=== PATIENT | male | born 1990 | race Two or more races ===

== ENCOUNTER 2024-05-08 04:24 | Emergency (ER) | payer MEDICAID, SELFPAY ==
[2024-05-08 04:26] VITALS: BP 132/84; PULSE 107; RESP 19; TEMP 36.6; O2SAT 100
--- NOTE | 2024-05-08 05:24 | ED.NAVMDI ---
HPI - Nausea/Vomiting/Diarrhea General Chief complaint: Nausea/Vomiting/Diarrhea Stated complaint: gout outbreak in R elbow and L toe, nausea, vomitt Time Seen by Provider: 05/08/24 04:42 History of Present Illness HPI Narrative: This is a 34-year-old male with a past medical history significant for gout and alcohol abuse. Patient presents to the ED with multiple complaints including nauseousness, vomiting, diarrhea as well as a gout flare in his right elbow and right great toe. Patient states he is presently at [facility] for rehabilitation and then on day 5 of his detox from alcohol. He states that whenever he goes through detox around a 4 in 5 he gets severely nauseous and vomits with diarrhea. He states that these symptoms are very common for him as he has gone through rehab several times and failed. He states he feels slightly anxious but has never trialed phenobarbital or Librium for alcohol withdrawal symptoms. He states his most chief concern is that he is having a severe gout flare in his right elbow and right hallux. There is significant warmth, erythema and swelling of both of these joints. This was nontraumatic in nature. He states he usually gets significant relief with indomethacin or steroids. Does not take anything aside from allopurinol for gout presently. Denies any chest pain, shortness a breath, back pain, weakness, fatigue, infectious symptoms. Related Data Allergies Allergy/AdvReac Type Severity Reaction Status Date / Time No Known Allergies Allergy Verified 05/08/24 04:25 Review of Systems Review of Systems: As reviewed above in HPI Exam Narrative: GENERAL: Retching and vomiting throat examination, appears anxious with some tremors in his extremities. HEAD: [Normocephalic, atraumatic.] EYES: [PERRLA and EOMI.] ENT: Nares clear, no rhinorrhea or epistaxis. Mucous membranes moist. NECK: Supple. CHEST: [Clear to auscultation. No respiratory distress.] HEART: [Regular rate and rhythm]. No murmur heard. [Normal peripheral pulses.] ABDOMEN: [Soft, nondistended], [nontender], [No rigidity or guarding] EXTREMITIES: Swollen right elbow and right hallux with warmth and erythema but no significant infectious symptoms or cellulitis. Full range of motion of the extremities. Tender to palpation. No deformities. SKIN: Warm and flushed NEURO: [No focal deficits]. Alert and oriented [x3.] PSYCH: [Normal mood and affect.] Course Vital Signs Vital signs: Vital Signs Temperature 36.6 C 05/08/24 04:26 Pulse Rate 107 H 05/08/24 04:26 Respiratory Rate 19 05/08/24 04:26 Blood Pressure 132/84 05/08/24 04:26 Pulse Oximetry 100 05/08/24 04:26 Oxygen Delivery Room Air 05/08/24 04:26 Temperature 36.6 C 05/08/24 04:26 Pulse Rate 107 H 05/08/24 04:26 Respiratory Rate 19 05/08/24 04:26 Blood Pressure 132/84 05/08/24 04:26 Pulse Oximetry 100 05/08/24 04:26 Oxygen Delivery Room Air 05/08/24 04:26 MDM - Nausea/Vomiting/Diarrhea MDM Narrative Medical decision making narrative: 34-year-old male with history of gout alcohol abuse presently going through alcohol withdrawal in addition to a gout flare. He is on day 5 of detoxification at [facility] for alcohol intoxication rehabilitation. Has not had a drink in 5 days. Has had similar symptoms in the past according to himself or on day 4 or 5 he get significant withdrawal type symptoms. Has never been given phenobarbital or trial on Librium for withdrawal symptoms according to himself. Patient states that his chief concern of gout is the most painful and likely worsening his nausea and vomiting from withdrawals. Thinks these are 2 separate issues and I agree based on my clinical assessment and physical exam. Differential diagnosis for his polyarthropathy also includes but less likely to be infectious or septic arthritis, traumatic injury, or cellulitis. We will treat his alcohol withdrawal symptoms with a 5 milligram/kilogram
[2024-05-08] MEDS: SODIUM CHLORIDE 0.9% IV 1,000 ML 999 ML IV CONT (05:54)
[2024-05-08] MEDS: methylPREDNISolone SOD SUCC 40 MG VIAL IV PUSH (05:57)
[2024-05-08] MEDS: PHENobarbitaL sodium (*CRX) 130 MG/ML VIAL 260 MG IV PUSH (05:57)
[2024-05-08] MEDS: KETOROLAC 15 MG/ML VIAL (*BKC) IV PUSH (05:57)
[2024-05-08 06:08] LABS: Basophils Percent Auto 0.1 % (0.2-1.2); Eosinophils Absolute Auto 0.1 K/mm3 (0-0.3); Eosinophils Percent Auto 1.2 % (0-4.4); Hematocrit 36.1 % (42.0-52.0); Hemoglobin 12.2 g/dL (14.0-18.0); Immature Granulocyte Absolute 0.05 K/mm3 (0.00-0.031); Immature Granulocyte Percent A 0.5 % (0-0.5); Lymphocytes Absolute Auto 0.98 K/mm3 (0.9-3.2); Lymphocytes Percent Auto 9.1 % (18.3-44.2); Mean Corpuscular HGB Conc 33.8 g/dl (32-36); Mean Corpuscular Hemoglobin 33.2 pg (26-34); Mean Corpuscular Volume 98.4 fl (80-100); Mean Platelet Volume 12.3 fl (7.4-10.4); Monocytes Absolute Auto 1.2 K/mm3 (0.1-0.6); Monocytes Percent Auto 11.2 % (2.6-8.5); Neutrophils Absolute Auto 8.4 K/mm3 (1.3-6.7); Neutrophils Percent Auto 77.9 % (45.5-73.1); Platelet Count Result 140 k/mm3 (150-375); Red Blood Count 3.67 M/mm3 (4.6-6.20); Red Cell Distribution Width 14.8 % (11.5-14.5); White Blood Count 10.7 K/mm3 (4.5-10.0)
[2024-05-08 06:11] LABS: Alanine Aminotransferase 19 U/L (6-50); Albumin Level 4.3 g/dL (3.5-5.1); Alkaline Phosphatase 98 U/L (38-126); Anion Gap 11 mmol/L (4-12); Aspartate Amino Transferase 26 U/L (17-59); Bilirubin,Total 0.7 mg/dL (0.2-1.3); Blood Urea Nitrogen 13 mg/dL (9-20); Calcium 8.8 mg/dL (8.4-10.2); Carbon Dioxide 28 mmol/L (22-30); Chloride 97 mmol/L (98-107); Estimated Glomerular Filt Rate > 60; Glucose 130 mg/dL (65-110); Lipase 43 U/L (23-300); Potassium 2.9 mmol/L (3.4-5.0); Sodium 136 mmol/L (137-145)
[2024-05-08 06:25] VITALS: BP 142/94; PULSE 61; RESP 15; O2SAT 98
[2024-05-08] MEDS: POTASSIUM CHLORIDE 20 MEQ ER TABLET 60 MEQ PO (07:10)
== END 2024-05-08 07:23 | disposition home or self-care (01) ==
PROVIDERS: Emergency Provider Student in an Organized Health Care Education/Training Program
DX: F10.139 Alcohol abuse with withdrawal, unspecified (principal); M10.9 Gout, unspecified; E87.6 Hypokalemia
CPT/HCPCS: 36415; 80053; 83690; 85025; 96361; 96374; 96375; 99284; A9270; J1885; J2560; J2919; J7030

== ENCOUNTER 2024-10-14 13:10 | Emergency (ER) | payer OTHER, SELFPAY ==
--- OUTSIDE RECORDS SUMMARY | 2024-10-14 13:14 | XMS_ITS | Clinical Summary ---
Author Organization [facility] Address [address] [place] [address] Care Team Providers Care Rock Cutter Name Role Phone Provider, None Primary Care Provider Unavailabl e Medications * This document contains information received from the source organization and may not represent a complete record from that organization. QUEtiapine Fumarate 400 MG Tablet Take 800 mg by mouth nightly. Active sertraline (ZOLOFT) 100 MG Tablet Take 200 mg by mouth daily. Active allopurinol (ZYLOPRIM) 100 MG Tablet Take 100 mg by mouth daily. Active chlordiazePOXIDE (LIBRIUM) 10 MG CapsuleIndication s:Alcohol withdrawal syndrome without complication (HCC) Take 1 Capsule by mouth every 8 hours as needed for Withdrawal. 10 Capsule 4 Active folic acid (FOLVITE) 1 MG Tablet Take 1 Tablet by mouth daily for 90 days. 90 Tablet 4 11/05/19 25 Active thiamine (VITAMIN B1) 100 MG Tablet Take 1 Tablet by mouth daily for 90 days. 90 Tablet 4 11/05/19 25 Active Active Problems Problem Noted Date Diagnosed Date Bipolar disorder 06/15/2024 PTSD (post-traumatic stress disorder) 06/15/2024 Gout 06/15/2024 Resolved Problems Problem Noted Date Diagnosed Date Resolved Date Alcohol withdrawal 06/15/2024 4 Encounters * This document contains information received from the source organization and may not represent a complete record from that organization. Date Type Department Care Team Description 08/04/2024 [facility] [address] [place] [phone] Matthieu Montano APRN, CNP Appointment 08/04/2024 Telephone [facility] [address] [place] [phone] Matthieu Montano APRN, CNP 08/03/2024 Travel from Last 3 Months Immunizations Immunization Administration Dates Next Due Covid-19, Mrna, Lnp-s, Pf, 30 Mcg/0.3 Ml Dose (P elijah) 07/14/2021 Social History Tobacco Use Types Packs/Day Years Used Date Smoking Tobacco: Never Assessed [facility] Utilities Answer Date Recorded In the past 12 months has [employer] electric, gas, oil, or water company threatened to shut off services in your home? No 08/03/2024 Social Connection and Isolat ion Panel [NHANES] Answer Date Recorded In a typical week, how many times do you talk on the phone with family, friends, or neighbors? Three times a week 08/03/2024 How often do you get togethe r with friends or relatives? Three times a week 08/03/2024 How often do you attend chur ch or buddhism services? More than 4 times per year 08/03/2024 Do you belong to any clubs o r organizations such as roman catholic groups, unions, fraternal or athletic groups, or school groups? Yes 08/03/2024 How often do you attend meet ings of the clubs or organizations you belong to? More than 4 times per year 08/03/2024 Are you , , di vorced, , never , or living with a partner? 08/03/2024 AUDIT-C Answer Date Recorded Q1: How often do you have a drink containing alc ohol? 2-4 times a month 08/03/2024 Q2: How many drinks containi ng alcohol do you have on a typical day when you are drinking? 1 or 2 08/03/2024 Q3: How often do you have si x or more drinks on one occasion? Never 08/03/2024 Overall Financial Resource Strain (CARDIA) Answe r Date Recorded How hard is it for you to pa y for the very basics like food, housing, medical care, and heating? Not hard at all 08/03/2024 [facility] Occupat ional Health - Occupational Stress Questionnaire Answer Date Recorded Do you feel stress - tense, restless, nervous, or anxious, or unable to sleep at night because your mind is troubled all the time - these days? Only a little 08/03/2024 Exercise Vital Sign Answer Date Recorde d On average, how many days pe r week do you engage in moderate to strenuous exercise (like a brisk walk)? 2 days 08/03/2024 On average, how many minutes do you engage in exercise at this level? 20 min 08/03/2024 Hunger Vital Sign Answer Date Recorded Within the past 12 months, y ou worried that your food would run out before you got the money to buy more. Never true 08/03/20 24 Within the past 12 months, t he food you bought just didn't last and you didn't have money to get more. Never true 08/03/2024 PRAPARE - Transportation Answer Date Re corded In the past 12 months, has l ack of transportation kept you from medical appointments or from getting medications? No 01/2024 In the past 12 months, has l ack of transportation kept you from meetings, work, or from getting things needed for daily living? No 08/03/2024 Housing Stability Vital Sign Answer Tej e Recorded In the last 12 months, was t here a time when you were not able to pay the mortgage or rent on time? No 08/03/2024 In the past 12 months, how m any times have you moved where you were living? 0 08/03/2024 At any time in the past 12 m [facility], were you homeless or living in a group home (including now)? No 08/03/2024 Sex and Gender Information Value Date Recorded Sex Assigned at Male 08/08/2024 12:53 PM FORK LIFT MECHANIC Legal Sex Male 2:53 PM FORK LIFT MECHANIC Gender Identity Male 08/08/2024 12:53 PM FORK LIFT MECHANIC Sexual Orientation Not on file Last Filed Vital Signs Vital Sign Reading Time Taken Comments Blood Pressure 105/62 08/06/2024 5:40 AM FORK LIFT MECHANIC Pulse 55 08/06/2024 5:40 AM FORK LIFT MECHANIC Temperature 36.8 C (98.2 F) 08/06/2024 5:40 AM FORK LIFT MECHANIC Respiratory Rate 16 08/06/2024 5:40 AM FORK LIFT MECHANIC Oxygen Saturation 99% 08/06/2024 5:40 AM FORK LIFT MECHANIC Inhaled Oxygen Concentration - - Weight 63.5 kg (140 lb) 08/03/2024 2:15 PM FORK LIFT MECHANIC Height 175.3 cm (5' 9 ) 08/03/2024 2:15 PM FORK LIFT MECHANIC Body Mass Index 20.67 08/03/2024 2:15 PM FORK LIFT MECHANIC Plan of Treatment Health Maintenance Due Date Last Done Comments Hepatitis C Virus (HCV) Screening 1988 TdaP Immunization 1988 Influenza Immunization (#1) 2024 SARS-COV-2 Immunization ( season) 2024 07/14/2021, 01/02/2021, 12/12/2020 Respiratory Syncytial Virus (RSV) Immunization (Adult) (1 - 1-dose 75+ series) 2063 DTaP/Tdap/Td Immunization Discontinued 1992, 05/04/1990, 02/21/1989, Additional history exists Hepatitis B Immunization Completed 996, 09/01/1995, 07/28/1995 Meningococcal Immunization (ACWY) Aged Out No longer eligible based on patient's age to complete this topic Pneumococcal Immunization Combined Aged Out No longer eligible based on patient's age to complete this topic Rotavirus Immunization Aged Out No lo nger eligible based on patient's age to complete this topic Procedures Procedure Name Priority Date/Time Associated Diagnosis Comments CBC WITH AUTO DIFFERENTIAL Routine 08/03/2024 2:25 PM FORK LIFT MECHANIC AMYLASE Routine 08/03/2024 2:25 PM FORK LIFT MECHANIC MAGNESIUM (MG) Routine 08/03/2024 2:25 PM FORK LIFT MECHANIC PHOSPHORUS (PO4) Routine 08/03/2024 2:25 PM FORK LIFT MECHANIC LIPASE Routine 08/03/2024 2:25 PM FORK LIFT MECHANIC ETHYL ALCOHOL (ETHANOL) Routine 08/03/2024 2:25 PM FORK LIFT MECHANIC PROTIME (PT) (PROTHROMBIN TIME) Routine 08/03/2024 2:25 PM FORK LIFT MECHANIC CMP (COMPREHENSIVE METABOLIC PANEL) Routine 08/03/2024 2:25 PM FORK LIFT MECHANIC COMPLETE BLOOD COUNT (CBC) WITH DIFF Routine 08/03/2024 2:25 PM FORK LIFT MECHANIC URINALYSIS (UA) MACROSCOPIC Routine 08/03/2024 2:03 PM FORK LIFT MECHANIC URINE DRUG SCREEN Routine 08/03/2024 2:0 3 PM FORK LIFT MECHANIC from Last 3 Months Results * (ABNORMAL) CBC with Auto Differential (08/03/2024 2:25 PM FORK LIFT MECHANIC) WBC 6.70 4.00 - 12.00 10(3)/mcL 08/03/2024 2:36 PM FORK LIFT MECHANIC [facility] RBC 5.12 4.40 - 5.80 10(6)/mcL 08/03/2024 2:36 PM FORK LIFT MECHANIC [facility] HEMOGLOBIN (HGB) 15.9 13.0 - 16.5 g/dL 08/03/2024 2:36 PM FORK LIFT MECHANIC [facility] HEMATOCRIT (HCT) 47.0 38.0 - 50.0 % 08/03/2024 2:36 PM FORK LIFT MECHANIC [facility] MCV 91.8 82.0 - 96.0 fL 08/03/2024 2:36 PM FORK LIFT MECHANIC [facility] MCH 31.1 26.0 - 32.0 pg 08/03/2024 2:36 PM FORK LIFT MECHANIC [facility] MCHC 33.8 31.0 - 36.0 g/dL 08/03/2024 2:36 PM FORK LIFT MECHANIC [facility] PLATELET COUNT 242 140 - 440 10(3)/mcL 08/03/2024 2:36 PM FORK LIFT MECHANIC [facility] RDW 13.2 11.8 - 15.5 % 08/03/2024 2:36 PM FORK LIFT MECHANIC [facility] MPV 11.4 8.0 - 12.6 fL 08/03/2024 2:36 PM FORK LIFT MECHANIC [facility] NEUTROPHILS 57.5 40.0 - 68.0 % 08/03/2024 2:36 PM FORK LIFT MECHANIC [facility] LYMPHOCYTES 31.8 19.0 - 49.0 % 08/03/2024 2:36 PM FORK LIFT MECHANIC [facility] MONOCYTES 4.8 3.0 - 13.0 % 08/03/2024 2:36 PM FORK LIFT MECHANIC [facility] EOSINOPHILS 4.6 0.0 - 8.0 % 08/03/2024 2:36 PM FORK LIFT MECHANIC [facility] BASOPHILS 1.3(H) 0.0 - 1.0 % 08/03/2024 2:36 PM FORK LIFT MECHANIC [facility] ABSOLUTE NEUTROPHILS 3.85 1.40 - 5.30 10(3)/[facility] 08/03/2024 2:36 PM FORK LIFT MECHANIC [facility] ABSOLUTE LYMPHOCYTES 2.13 0.90 - 3.30 10(3)/[facility] 08/03/2024 2:36 PM FORK LIFT MECHANIC [facility] ABSOLUTE MONOCYTES 0.32 0.10 - 0.90 10(3)/[facility] 08/03/2024 2:36 PM FORK LIFT MECHANIC [facility] ABSOLUTE EOSINOPHIL 0.31 0.00 - 0.50 10(3)/[facility] 08/03/2024 2:36 PM FORK LIFT MECHANIC [facility] ABSOLUTE BASOPHILS 0.09 0.00 - 0.10 10(3)/[facility] 08/03/2024 2:36 PM FORK LIFT MECHANIC [facility] NRBC PER 100 WBC 0 08/03/20 2:36 PM FORK LIFT MECHANIC [facility] Blood Venipuncture / Unknown 08/03/2024 2:25 PM FORK LIFT MECHANIC 08/03/2024 2:33 PM FORK LIFT MECHANIC us Sherrell Bai MD HEMATOLOGY ORDERABLES Final R esult [facility] [address] [place] [address] * PROTIME (PT) (PROTHROMBIN TIME) (08/03/2024 2:25 PM FORK LIFT MECHANIC) PROTIME-PATIENT 13.0 11.6 - 14.8 sec 08/03/2024 3:11 PM FORK LIFT MECHANIC [facility] INR 1.0 0.9 - 1.2 08/03/2024 3:11 PM FORK LIFT MECHANIC [facility] Comment: Therapeutic Ranges INR = 2.0-3.0: Venous thromb, atrial fib, pul embolism, tissue heart valve, ami. INR = 2.5-3.5: Mechanical heart valve Critical value for INR is >/= 4.5 Blood Venipuncture / Unknown 08/03/2024 2:25 PM FORK LIFT MECHANIC 08/03/2024 2:33 PM FORK LIFT MECHANIC Sherrell Bai MD HEMATOLOGY ORDERABLES Final R esult Performing Organization Address City/[facility]/ZIP Co de Phone Number [facility] [address] [place] [address] * (ABNORMAL) PHOSPHORUS (PO4) (08/03/2024 2:25 PM FORK LIFT MECHANIC) Pathologist [facility] PHOSPHORUS 2.2(L) 2.5 - 4.5 mg/dL 08/03/2024 2:54 PM FORK LIFT MECHANIC [facility] Blood Venipuncture / Unknown 08/03/2024 2:25 PM FORK LIFT MECHANIC 08/03/2024 2:33 PM FORK LIFT MECHANIC Sherrell Bai MD CHEMISTRY ORDERABLES Final Re sult [facility] [address] [place] [address] * MAGNESIUM (MG) (08/03/2024 2:25 PM FORK LIFT MECHANIC) Pathologist [facility] MAGNESIUM 2.3 1.6 - 2.6 mg/dL 08/03/2024 2:54 PM FORK LIFT MECHANIC [facility] Blood Venipuncture / Unknown 08/03/2024 2:25 PM FORK LIFT MECHANIC 08/03/2024 2:33 PM FORK LIFT MECHANIC Sherrell Bai MD CHEMISTRY ORDERABLES Final Re sult Performing Organization Address City/[facility]/ZIP Co de Phone Number [facility] [address] [place] [address] * Lipase (08/03/2024 2:25 PM FORK LIFT MECHANIC) LIPASE 14 8 - 78 U/L 08/03/2024 2:54 PM FORK LIFT MECHANIC [facility] Blood Venipuncture / Unknown 08/03/2024 2:25 PM FORK LIFT MECHANIC 08/03/2024 2:33 PM FORK LIFT MECHANIC Sherrell Bai MD CHEMISTRY ORDERABLES Final Re sult Performing Organization Address [facility] Co de Phone Number [facility] [address] [place] [address] * (ABNORMAL) Ethyl Alcohol (Ethanol) (08/03/2024 2:25 PM FORK LIFT MECHANIC) ETHANOL 184(H) <10 mg/dL 08/03/2024 2:54 PM FORK LIFT MECHANIC [facility] Blood Venipuncture / Unknown 08/03/2024 2:25 PM FORK LIFT MECHANIC 08/03/2024 2:33 PM FORK LIFT MECHANIC Sherrell Bai MD CHEMISTRY ORDERABLES Final Re sult Performing Organization Address [facility] Co de Phone Number [facility] [address] [place] [address] * (ABNORMAL) CMP (Comprehensive Metabolic Panel) (08/03/2024 2:25 PM FORK LIFT MECHANIC) SODIUM 142 136 - 145 mmol/L 08/03/2024 2:54 PM FORK LIFT MECHANIC [facility] POTASSIUM 3.5 3.5 - 5.1 mmol/L 08/03/2024 2:54 PM [facility] CHLORIDE 107 98 - 107 mmol/L 08/03/2024 2:54 PM [facility] CO2, VENOUS 22 22 - 30 mmol/L 08/03/2024 2:54 PM [facility] ANION GAP 16.5 <18.0 mmol/L 08/03/2024 2:54 PM [facility] GLUCOSE 87 70 - 99 mg/dL 08/03/2024 2:54 PM [facility] BUN 10 9 - 21 mg/dL 08/03/2024 2:54 PM [facility] CREATININE, BLOOD 0.96 0.70 - 1.30 mg/dL 08/03/2024 2:54 PM [facility] BUN/CREATININE RATIO 10(L) 12 - 20 ratio 08/03/2024 2:54 PM [facility] TOTAL PROTEIN 8.4(H) 6.3 - 8.2 g/dL 08/03/2024 2:54 PM [facility] ALBUMIN 4.9 3.5 - 5.0 g/dL 08/03/2024 2:54 PM [facility] A/G RATIO 1.4 1.0 - 2.2 08/03/2024 2:54 PM [facility] CALCIUM 9.4 8.7 - 10.5 mg/dL 08/03/2024 2:54 PM [facility] T BILI 0.5 0.2 - 1.2 mg/dL 08/03/2024 2:54 PM [facility] SGOT (AST) 22 5 - 34 U/L 08/03/2024 2:54 PM [facility] SGPT (ALT) 19 0 - 55 U/L 08/03/2024 2:54 PM [facility] ALKALINE PHOSPHATASE 84 40 - 150 U/L 08/03/2024 2:54 PM [facility] GFR, ESTIMATED >60 >=60 08/03/2024 2:54 PM FORK LIFT MECHANIC [facility] Comment: Creatinine Clearance is the preferred criteria for selecting drug dose adjustments in renally impaired patients. The GFR is provided as additional pertinent clinical information. GFR is reported in mL/min/1.73 sq m. Calculation based on the Chronic Kidney Disease Epidemiology Collaboration (CKD- EPI) equation refit without adjustment for race. GFR, EST. >60 >=60 024 2:54 PM FORK LIFT MECHANIC [facility] GFR, EST. NONAFRICAN >60 >=60 08/03/2024 2:54 PM FORK LIFT MECHANIC [facility] Blood Venipuncture / Unknown 08/03/2024 2:25 PM FORK LIFT MECHANIC 08/03/2024 2:33 PM FORK LIFT MECHANIC Sherrell Bai MD CHEMISTRY ORDERABLES Final Re sult Performing Organization Address [facility]/ZIP Co de Phone Number [facility] [address] [place] [address] * Amylase (08/03/2024 2:25 PM FORK LIFT MECHANIC) AMYLASE 71 25 - 125 U/L 08/03/2024 2:54 PM FORK LIFT MECHANIC [facility] Blood Venipuncture / Unknown 08/03/2024 2:25 PM FORK LIFT MECHANIC 08/03/2024 2:33 PM FORK LIFT MECHANIC Sherrell Bai MD CHEMISTRY ORDERABLES Final Re sult Performing Organization Address [facility] Co de Phone Number [facility] [address] [place] [address] * Urinalysis (Ua) Macroscopic (08/03/2024 2:03 PM FORK LIFT MECHANIC) SPECIFIC GRAVITY 1.005 1.003 - 1.030 08/03/2024 2:24 PM FORK LIFT MECHANIC [facility] URINE PH 6.0 5.0 - 9.0 08/03/2024 2:24 PM FORK LIFT MECHANIC [facility] WBC ESTERASE Negative Negative 08/03/2024 2:24 PM FORK LIFT MECHANIC [facility] NITRITE Negative Negative 08/03/2024 2:24 PM FORK LIFT MECHANIC [facility] PROTEIN, RANDOM URINE Negative Negative 08/03/2024 2:24 PM FORK LIFT MECHANIC [facility] URINE GLUCOSE, QUAL Negative Negative 08/03/2024 2:24 PM FORK LIFT MECHANIC [facility] URINE KETONES Negative Negative 08/03/2024 2:24 PM FORK LIFT MECHANIC [facility] UROBILINOGEN Normal Normal mg/dL 08/03/2024 2:24 PM FORK LIFT MECHANIC [facility] URINE BLOOD Negative Negative gretel/ul 08/03/2024 2:24 PM FORK LIFT MECHANIC [facility] URINALYSIS COLOR Yellow 08/03/20 2:24 PM FORK LIFT MECHANIC [facility] URINALYSIS CLARITY Clear 08/03/2024 2:24 PM FORK LIFT MECHANIC [facility] Urine Non-Phlebotomy Collection / Unknown 08/03/2024 2:03 PM FORK LIFT MECHANIC 08/03/2024 2:09 PM FORK LIFT MECHANIC Sherrell Bai MD URINE ORDERABLES Final Result [facility] [address] [place] [address] * (ABNORMAL) Urine Drug Screen (08/03/2024 2:03 PM FORK LIFT MECHANIC) UR AMPHETAMINE NON DETECTED NON DETECTED 08/03/2024 3:14 PM FORK LIFT MECHANIC [facility] Comment: FOR MEDICAL USE ONLY. CUTOFF CONCENTRATION FOR DETECTED RESULT: AMPHETAMINE: 500 NG/ML UR BENZODIAZEPINES NON DETECTED NON DETECTED 08/03/2024 3:14 PM FORK LIFT MECHANIC [facility] Comment: FOR MEDICAL USE ONLY. CUTOFF CONCENTRATION FOR DETECTED RESULT: BENZODIAZAPINE: 200 NG/ML UR COCAINE METABOLITE NON DETECTED NON DETECTED 08/03/2024 3:14 PM FORK LIFT MECHANIC [facility] Comment: FOR MEDICAL USE ONLY. CUTOFF CONCENTRATION FOR DETECTED RESULT: COCAINE: 150 NG/ML UR OPIATES NON DETECTED NON DETECTED 08/03/2024 3:14 PM FORK LIFT MECHANIC [facility] Comment: FOR MEDICAL USE ONLY. CUTOFF CONCENTRATION FOR DETECTED RESULT: OPIATES: 300 NG/ML UR PHENCYCLIDINE NON DETECTED NON DETECTED 08/03/2024 3:14 PM FORK LIFT MECHANIC [facility] Comment: FOR MEDICAL USE ONLY. CUTOFF CONCENTRATION FOR DETECTED RESULT: PCP: 25 NG/ML UR CANNABINOID DETECTED(A) NON DETECTED 08/03/2024 3:14 PM FORK LIFT MECHANIC [facility] Comment: FOR MEDICAL USE ONLY. CUTOFF CONCENTRATION FOR DETECTED RESULT: THC (MARIJUANA): 50 NG/ML UR BARBITURATE NON DETECTED NON DETECTED 08/03/2024 3:14 PM FORK LIFT MECHANIC [facility] Comment: FOR MEDICAL USE ONLY. CUTOFF CONCENTRATION FOR DETECTED RESULT: BARBITUATES: 200 NG/ML UR FENTANYL NON DETECTED NON DETECTED 08/03/2024 3:14 PM FORK LIFT MECHANIC [facility] Comment: FOR MEDICAL USE ONLY. CUTOFF CONCENTRATION FOR DETECTED RESULT: FENTANYL: 1.0 NG/ML Urine Non-Phlebotomy Collection / Unknown 08/03/2024 2:03 PM FORK LIFT MECHANIC 08/03/2024 2:09 PM FORK LIFT MECHANIC Sherrell Bai MD URINE ORDERABLES Final Result [facility] [address] [place] [address] from Last 3 Months Insurance MEDICAID [employer] [facility] Advance Directives * Full Code (Latest Code Status on File) Date Activated Date Inactivated Comments 08/03/2024 5:02 PM CPR-Full Treat ment: FULL ARREST: Attempt Resuscitation/CPR wit intubation and mechanical ventilation. PRE-ARREST: Use entire range of life support measures to stabilize the patient. * Full Code Date Activated Date Inactivated Comments 06/15/2024 9:26 PM 08/03/2024 5:02 PM CPR-Full Tr eatment: FULL ARREST: Attempt Resuscitation/CPR wit intubation and mechanical ventilation. PRE-ARREST: Use entire range of life support measures to stabilize the patient. Care Teams Rock Cutter Relationship Specialty Start Date End Date Provider, None [place] PCP - General 06/16/24
--- OUTSIDE RECORDS SUMMARY | 2024-10-14 13:14 | XMS_ITS | Referral Summary ---
Author Organization [facility] Address [address] [place] [address] Care Team Providers Care Needle Loom Setter Name Role Phone Candelario Diamond MD Primary Care Provider [phone] Encounters Date Type Department Care Team Description 10/08/2024 10:41 PM SURFBOARD DESIGNER - 10/11/2024 9:40 AM SURFBOARD DESIGNER Hospital Encounter [address] [address] Cheng Hodgson MD Quaizar, Huzaifa, MD Sajjad, Sohaib, MD Alcohol withdrawal syndrome without complication (HCC) (Primary Dx) Discharge Disposition: Discharge to other rehab with plan readmit 09/14/2024 Documentation [facility] Off [facility] [address] [place], [place] [phone] Shwetha Sandoval 09/14/2024 3:50 PM SURFBOARD DESIGNER - 09/14/2024 6:21 PM SURFBOARD DESIGNER Emergency [facility] Emergency Department 1 [place] [address] Dianne Noel MD Alcohol abuse (Primary Dx) Discharge Disposition: Discharge to home or self care 09/10/2024 [facility] Initial Eligibility [facility] [address] [place], [place] [phone] Jose Almonte 08/30/2024 Telephone [facility] [address] [place], [place] [phone] Shwetha Sandoval from Last 3 Months Allergies No known active allergies Medications sertraline (ZOLOFT) 100 mg tablet Take 2 tablets (200 mg total) by mouth daily Active QUEtiapine (SEROquel) 100 mg tablet Take 1 tablet (100 mg total) by mouth nightly Active indomethacin (INDOCIN) 50 mg capsule Take 1 capsule (50 mg total) by mouth 3 (three) times a day as needed for pain (GOUT) Active thiamine (VITAMIN B1) 100 mg tablet Take 1 tablet (100 mg total) by mouth daily Active traZODone (DESYREL) 100 mg tablet Take 0.5 tablets (50 mg total) by mouth nightly as needed for sleep Takes 50 mg to 100 mg nightly PRN for sleep Active folic acid (FOLVITE) 1 mg tablet Take 1 tablet (1 mg total) by mouth daily Active ARIPiprazole (ABILIFY) 15 mg tablet Take 1 tablet (15 mg total) by mouth nightly Active nicotine polacrilex (NICORETTE) 4 mg gum Chew 1 each (4 mg total) as needed for smoking cessation Active QUEtiapine (SEROquel) 25 mg tabletIndicati ons:Generalize d Anxiety Disorder Take 0.5 tablets (12.5 mg total) by mouth daily as needed (anxiety) Take 1/2 to 1 tab as needed daily for anxiety 15 tablet 10/11/19 25 025 Active QUEtiapine (SEROquel) 400 mg tablet Take 2 tablets (800 mg total) by mouth nightly 025 Discontinued(Al ternate therapy) allopurinoL (ZYLOPRIM) 100 mg tablet Take 1 tablet (100 mg total) by mouth daily 30 tablet 05/05/20 24 025 Discontinued(Du plicate order) nicotine polacrilex (NICORETTE) 2 mg gum Chew 1 each (2 mg total) as needed for smoking cessation 100 each 05/04/20 24 025 Discontinued(Al ternate therapy) pantoprazole DR (PROTONIX) 40 mg EC tabletIndicati ons:Treatment of Non-Bleeding Gastric Disorder Take 1 tablet (40 mg total) by mouth daily for 12 doses 12 tablet 05/05/20 24 025 Discontinued(Th erapy completed) QUEtiapine (SEROquel) 25 mg tablet Take 1 tablet (25 mg total) by mouth nightly Take 1/2 to 1 tab as needed daily for anxiety 025 Discontinued allopurinoL (ZYLOPRIM) 100 mg tablet Take 1 tablet (100 mg total) by mouth daily 025 Discontinued(St op Taking at Discharge) Active Problems Problem Noted Date Diagnosed Date Alcoholic intoxication without complication (CMS /HCC) 07/03/2024 Alcohol use with withdrawal without complication 07/02/2024 Alcohol withdrawal syndrome without complication 05/02/2024 Social History Tobacco Use Types Packs/Day Years Used Date Smoking Tobacco: Every Day Vaping Tobacco Cessation:Ready to Q uit: No; Counseling Given: Yes [facility] Utilities Answer Date Recorded In the past 12 months has th e Urban Mapping, gas, oil, or water [employer] threatened to shut off services in your home? No 10/09/2024 Social Connection and Isolation Panel [NHANES] A nswer Date Recorded In a typical week, how many times do you talk on the phone with family, friends, or neighbors? Three times a week 10/09/2024 How often do you get togethe r with friends or relatives? Twice a week 10/09/2024 How often [facility] you attend [facility] or moravian services? Never 10/09/2024 Do you belong to any clubs o r organizations such as evangelical groups, unions, fraternal or athletic groups, or school groups? No 10/09/2024 How often do you attend meet ings of the clubs or organizations you belong to? Never 10/09/2024 Are you , , di vorced, , never , or living with a partner? Never 10/09/2024 AUDIT-C Answer Date Recorded Q1: How often do you have a drink containing alcohol? 4 or more times a week 07/02/2024 Q2: How many drinks containi ng alcohol do you have on a typical day when you are drinking? 10 or more Q3: How often do you have si x or more drinks on one occasion? Daily or almost daily 07/02/2024 Overall Financial Resource Strain (CARDIA) Answe r Date Recorded How hard is it for you to pa y for the very basics like food, housing, medical care, and heating? Not very hard 10/09/2024 Hunger Vital Sign Answer Date Recorded Within the past 12 months, y ou worried that your food would run out before you got the money to buy more. Never true 10/09/19 25 Within the past 12 months, t he food you bought just didn't last and you didn't have money to get more. Never true 10/09/2024 PRAPARE - Transportation Answer Date Re corded In the past 12 months, has l ack of transportation kept you from medical appointments or from getting medications? No 09/29 In the past 12 months, has l ack of transportation kept you from meetings, work, or from getting things needed for daily living? No 10/09/2024 Housing Stability Vital Sign Answer Tej e Recorded In the last 12 months, was t here a time when you were not able to pay the mortgage or rent on time? No 10/09/2024 In the past 12 months, how m any times have you moved where you were living? 0 10/09/2024 At any time in the past 12 m [facility], were you homeless or living in a alf (including now)? No 10/09/2024 Personal Safety Answer Date Recorded Have you ever been in or are you currently in a harmful physical or emotional relationship or is someone making you feel afraid or unsafe? Denies 10/08/2024 Sex and Gender Information Value Date Recorded Sex Assigned at Not on file Legal Sex Male 11:16 PM SURFBOARD DESIGNER Gender Identity Not on file Sexual Orientation Not on file Last Filed Vital Signs Vital Sign Reading Time Taken Comments Blood Pressure 158/88 10/11/2024 8:20 AM SURFBOARD DESIGNER Pulse 59 10/11/2024 8:20 AM SURFBOARD DESIGNER Temperature 36.7 C (98.1 F) 10/11/2024 8:20 AM SURFBOARD DESIGNER Respiratory Rate 16 10/11/2024 8:30 AM SURFBOARD DESIGNER Oxygen Saturation 100% 10/11/2024 8:20 AM SURFBOARD DESIGNER Inhaled Oxygen Concentration - - Weight 67.1 kg (147 lb 14.9 oz) 025 10:03 AM SURFBOARD DESIGNER Height 177.8 cm (5' 10 ) 10/09/2024 10: 03 AM SURFBOARD DESIGNER Body Mass Index 21.23 10/09/2024 10:03 AM SURFBOARD DESIGNER Plan of Treatment Not on file Procedures Procedure Name Priority Date/Time Associated Diagnosis Comments EGFR Routine 10/10/2024 5:50 AM SURFBOARD DESIGNER DIFFERENTIAL AUTO Routine 10/10/2024 5:5 0 AM SURFBOARD DESIGNER CBC WITH AUTO DIFFERENTIAL Routine 10/10/2024 5:50 AM SURFBOARD DESIGNER COMPREHENSIVE METABOLIC PANEL Routine 10/10/2024 5:50 AM SURFBOARD DESIGNER DRUGS OF ABUSE SCREEN, URINE WITHOUT CONFIRMATION STAT 10/08/2024 4:38 PM SURFBOARD DESIGNER URINALYSIS AND REFLEX TO MICROSCOPIC AND CULTURE STAT 10/08/2024 4:38 PM SURFBOARD DESIGNER EGFR STAT 10/08/2024 4:37 PM SURFBOARD DESIGNER DIFFERENTIAL AUTO STAT 10/08/2024 4:3 7 PM SURFBOARD DESIGNER PHOSPHORUS STAT 10/08/2024 4:37 PM SURFBOARD DESIGNER MAGNESIUM STAT 10/08/2024 4:37 PM SURFBOARD DESIGNER ETHANOL STAT 10/08/2024 4:37 PM SURFBOARD DESIGNER COMPREHENSIVE METABOLIC PANEL STAT 10/08/2024 4:37 PM SURFBOARD DESIGNER CBC WITH AUTO DIFFERENTIAL STAT 10/08/2024 4:37 PM SURFBOARD DESIGNER INFLUENZA A/B, RSV, AND COVID-19 PCR STAT 10/08/2024 4:37 PM SURFBOARD DESIGNER XR CHEST 1 VIEW ED 09/14/2024 5:00 PM SURFBOARD DESIGNER DRUGS OF ABUSE SCREEN, URINE WITHOUT CONFIRMATION STAT 09/14/2024 4:13 PM SURFBOARD DESIGNER INFLUENZA A/B, RSV, AND COVID-19 PCR Routine 09/14/2024 4:13 PM SURFBOARD DESIGNER URINALYSIS AND REFLEX TO MICROSCOPIC AND CULTURE STAT 09/14/2024 4:13 PM SURFBOARD DESIGNER LIPASE STAT 09/14/2024 1:19 PM SURFBOARD DESIGNER EGFR STAT 09/14/2024 1:19 PM SURFBOARD DESIGNER DIFFERENTIAL AUTO STAT 09/14/2024 1:1 9 PM SURFBOARD DESIGNER ETHANOL STAT 09/14/2024 1:19 PM SURFBOARD DESIGNER COMPREHENSIVE METABOLIC PANEL STAT 09/14/2024 1:19 PM SURFBOARD DESIGNER CBC WITH AUTO DIFFERENTIAL STAT 09/14/2024 1:19 PM SURFBOARD DESIGNER from Last 3 Months Results * eGFR (10/10/2024 5:50 AM SURFBOARD DESIGNER) eGFR >90 >=60 mL/min/1. 73 m2 Comment: Interpretive Data Reference Interval Normal >/= 90 mL/min/1.73m2 Mildly decreased* 60 - 89 mL/min/1.73m2 Mildly to moderately decreased 45 - 59 mL/min/1.73m2 Moderately to severely decreased 30 - 44 mL/min/1.73m2 Severely decreased 15 - 29 mL/min/1.73m2 Kidney Failure < 15 mL/min/1.73m2 *Relative to young adult level Estimated glomerular filtration rate is determined by the 2020 CKD-EPI equation recommended by the National Kidney Foundation (A Unifying Approach to GFR Estimation: Recommendations of the NKF-ASK Task Force on Reassessing the Inclusion of Race in Diagnosing Kidney Disease, JASN 202). The CKD-EPI equation should not be used for patients with unstable renal function and has not been validated in children and those over 70. Current interpretive data was last reviewed 2021. Blood 10/10/2024 5:50 AM SURFBOARD DESIGNER 10/10/2024 6:00 AM SURFBOARD DESIGNER us Cheng Hodgson MD LAB BLOOD ORDERABLES Final Result [id number] [address] [facility] Department [place] [address] * Differential, auto (10/10/2024 5:50 AM SURFBOARD DESIGNER) Pathologist [facility] Neutrophil abs 5.3 1.5 - 6.5 K/cumm Imm gran abs 0.0 0.0 - 0.1 K/cumm [facility] Lymphocyte abs 2.3 0.8 - 3.3 K/cumm [facility] Monocyte abs 0.6 0.2 - 0.8 K/cumm [facility] Eosinophil abs 0.3 0.0 - 0.5 K/cumm [facility] Basophil abs 0.1 0.0 - 0.1 K/cumm [facility] Neutrophil pct 62.5 % [facility] Comment: Interpretive Data Percent cell count reference ranges are not reported, since discordance with absolute values may lead to misinterpretation of CBC data. Current Interpretive Data was last revised on 2017. Imm gran pct 0.2 % [facility] Comment: Interpretive Data Percent cell count reference ranges are not reported, since discordance with absolute values may lead to misinterpretation of CBC data. Current Interpretive Data was last revised on 2017. Lymphocyte pct 26.6 % [facility] Comment: Interpretive Data Percent cell count reference ranges are not reported, since discordance with absolute values may lead to misinterpretation of CBC data. Current Interpretive Data was last revised on 2017. Monocyte pct 6.7 % [facility] Comment: Interpretive Data Percent cell count reference ranges are not reported, since discordance with absolute values may lead to misinterpretation of CBC data. Current Interpretive Data was last revised on 2017. Eosinophil pct 3.4 % [facility] Comment: Interpretive Data Percent cell count reference ranges are not reported, since discordance with absolute values may lead to misinterpretation of CBC data. Current Interpretive Data was last revised on 2017. Basophil pct 0.6 % [facility] Comment: Interpretive Data Percent cell count reference ranges are not reported, since discordance with absolute values may lead to misinterpretation of CBC data. Current Interpretive Data was last revised on 2017. Blood 10/10/2024 5:50 AM SURFBOARD DESIGNER 10/10/2024 6:00 AM SURFBOARD DESIGNER Cheng Hodgson MD LAB BLOOD ORDERABLES Final Result [address] [place] [address] * CBC with auto differential (10/10/2024 5:50 AM SURFBOARD DESIGNER) [facility] WBC 8.5 3.8 - 9.9 K/cumm Hgb 14.9 13.0 - 17.5 g/dL [facility] Hct 44.0 38.9 - 50.3 % [facility] Plt 188 150 - 400 K/cumm [facility] MPV 11.6 9.1 - 12.3 fL [facility] RBC 4.78 4.30 - 5.80 M/cumm [facility] MCV 92.1 81.3 - 96.4 fL [facility] MCH 31.2 27.1 - 33.3 pg [facility] MCHC 33.9 32.3 - 35.7 g/dL [facility] RDW CV 13.2 11.1 - 14.9 % [facility] RDW SD 44.5 35.7 - 48.1 fL [facility] NRBC abs 0.00 0.00 - 0.01 K/cumm [facility] Blood 10/10/2024 5:50 AM SURFBOARD DESIGNER 10/10/2024 6:00 AM SURFBOARD DESIGNER Cheng Hodgson MD LAB BLOOD ORDERABLES Final Result Performing Organization Address City/[facility]/ZIP Co de Phone Number [address] [place] [employer] [place] [address] * (ABNORMAL) Comprehensive metabolic panel (10/10/2024 5:50 AM SURFBOARD DESIGNER) [facility] Sodium 138 135 - 145 mmol/L Potassium, pl 3.6 3.3 - 4.9 mmol/L [facility] Chloride 106 97 - 110 mmol/L [facility] CO2 21(L) 22 - 32 mmol/L [facility] Anion gap 11 2 - 15 mmol/L [facility] BUN 14 6 - 25 mg/dL [facility] Creatinine 1.02 0.80 - 1.30 mg/dL [facility] Glucose 131 70 - 199 mg/dL [facility] Comment: Interpretive Data Fasting glucose >/= 126 mg/dl is diagnostic for diabetes. Fasting is defined as no caloric intake for at least 8 hours. Fasting glucose between 100 mg/dl to 125 mg/dl is diagnostic of prediabetes. In a patient with classic symptoms of hyperglycemia or hyperglycemic crisis, a random glucose >/= 200 mg/dl is diagnostic for diabetes. In the absence of unequivocal hyperglycemia, results should be confirmed by repeat testing. The classification and Diagnosis of Diabetes Diabetes Care 202; 46: S19-S40. Current interpretive data was last revised 2022. Calcium 9.6 8.5 - 10.3 mg/dL [facility] Bilirubin, total 0.6 0.1 - 1.2 mg/dL [facility] Protein, pl 7.6 6.5 - 8.5 g/dL [facility] Albumin 4.4 3.5 - 5.0 g/dL [facility] Alk phos 91 40 - 130 Units/L [facility] ALT 24 7 - 55 Units/L [facility] AST 25 10 - 50 Units/L [facility] Blood 10/10/2024 5:50 AM SURFBOARD DESIGNER 10/10/2024 6:00 AM SURFBOARD DESIGNER Cheng Hodgson MD LAB BLOOD ORDERABLES Final Result [facility] [address] [facility] Department [place] [address] * Urinalysis reflex to microscopic and culture Urine (10/08/2024 4:38 PM SURFBOARD DESIGNER) Color, ur Yellow Yellow Clarity, ur Clear Clear [facility] Specific gravity, ur 1.019 1.003 - 1.030 [facility] pH, urine 5.5 [facility] Comment: Interpretive Data U rine pH is affected by diet, medications, systemic acid-base disturbances, and renal tubular function. pH may affect urinary stone formation. For example, urine pH below 6.0 may help reduce the tendency for calcium phosphate stones and pH greater than 6.0 may reduce the tendency for uric acid stone formation. Source: [facility] [employer] Current Interpretive Data was last revised on 2017 Protein, ur ql Negative Negative [facility] Glucose, ur ql Negative Negative [facility] Ketones, ur Negative Negative [facility] Bilirubin, ur Negative Negative [facility] Blood, ur Negative Negative [facility] Urobilinogen, ur <2.0 <2.0 mg/dL [facility] Nitrite, ur Negative Negative [facility] Leukocyte esterase, ur Negative Negative [facility] UA reflex comment Reflex conditions for microscopic UA and culture not met. [facility] Urine 10/08/2024 4:38 PM SURFBOARD DESIGNER 10/08/2024 4:41 PM SURFBOARD DESIGNER us Lucinda ELIZABETH LAB MICROBIOLOGY - GENERAL O RDERABLES Final Result [facility] [address] [facility] Department [place] [address] * (ABNORMAL) Drugs of Abuse Screen, Urine without Confirmation (10/08/2024 4:38 PM SURFBOARD DESIGNER) Pathologist [facility] Amphetamine, ur Not Detected CutOff 500ng/mL Comment: Interpretive Data - Amphetamines: Samples containing greater than 500 ng/mL d-methamphetamine or other cross-reacting amphetamine compounds are reported as positive. Amphetamine immunoassays are subject to significant false positive rates due to cross-reactivity of non-amphetamine drugs. Confirmatory testing required for definitive results. Current Interpretive Data was last reviewed 2023. Barbiturates, ur Not Detected CutOff 200ng/mL [facility] Comment: Interpretive Data - Barbiturates: Samples containing greater than 200 ng/mL secobarbital or other cross-reacting barbiturate compounds are reported as positive. False positive and false negative results are possible. Confirmatory testing required for definitive results. Current Interpretive Data was last reviewed 2023. Benzodiazepines, ur Not Detected CutOff 100ng/mL [facility] Comment: Interpretive Data - Benzodiazepines: Samples containing greater than 100 ng/mL nordiazepam or other cross-reacting compounds are reported as positive. False positive and false negative results are possible. Confirmatory testing required for definitive results. Current Interpretive Data was last reviewed 2023. Cannabinoids, ur Screen Positive, presumptive (A) CutOff 50 ng/mL [facility] Comment: Interpretive Data - Cannabinoids: Samples containing greater than 50 ng/mL delta-9 THC -COOH or other cross- reacting compounds are reported as positive. False positive and false negative results are possible. Confirmatory testing required for definitive results. Current Interpretive Data was last reviewed 2023. Cocaine, ur Not Detected CutOff 150ng/mL [facility] Comment: Interpretive Data - Cocaine: Samples containing greater than 150 ng/mL benzoylecgonine or other cross- reacting compounds are reported as positive. False positive and false negative results are possible. Confirmatory testing required for definitive results. Current Interpretive Data was last reviewed 2023. Fentanyl, Ur Not Detected CutOff 5 ng/mL [facility] Comment: Interpretive Data - Fentanyl: Samples containing greater than 5 ng/mL norfentanyl, fentanyl, or other cross-reacting fentanyl compounds are reported as positive. False positive and false negative results are possible. Confirmatory testing required for definitive results. Current Interpretive Data was last reviewed 2023. Methadone, ur Not Detected CutOff 300ng/mL [facility] Comment: Interpretive Data - Methadone: Samples containing greater than 300 ng/mL d,l-methadone or other cross-reacting compounds are reported as positive. False positive and false negative results are possible. Confirmatory testing required for definitive results. Current Interpretive Data was last reviewed 2023. Opiates, ur Not Detected CutOff 300ng/mL [facility] Comment: Interpretive Data - Opiates: Samples containing greater than 300 ng/mL morphine or other cross-reacting compounds are reported as positive. False positive and false negative results are possible. Confirmatory testing required for definitive results. Current Interpretive Data was last reviewed 2023. Oxycodone, ur Not Detected CutOff 100ng/mL [facility] Comment: Interpretive Data - Oxycodone: Samples containing greater than 100 ng/mL oxycodone or other cross-reacting compounds are reported as positive. False positive and false negative results are possible. Confirmatory testing required for definitive results. Current Interpretive Data was last reviewed 2023. Phencyclidine, ur Not Detected CutOff 25 ng/mL [facility] Comment: Interpretive Data - Phencyclidine: Samples containing greater than 25 ng/mL phencyclidine or other cross-reacting compounds are reported as positive. False positive and false negative results are possible. Confirmatory testing required for definitive results. Current Interpretive Data was last reviewed 2023. Urine Creatinine 161 mg/dL [facility] Comment: Interpretive Data Urine Creatinine: < 10 mg/dL is extremely dilute = or > 10 but < 20 mg/dL is dilute = or > 20 mg/dL is normal Current Interpretive Data was last revised on 2017. Urine 10/08/2024 4:38 PM SURFBOARD DESIGNER 10/08/2024 4:41 PM SURFBOARD DESIGNER Narrative [facility] - 10/08/2024 5:07 PM SURFBOARD DESIGNER Drug of Abuse screening is performed by immunoassay for medical purposes only. This is not to be used for Pain Management purposes. us Lucinda ELIZABETH LAB URINE ORDERABLES Final R esult [facility] [address] [facility] Department [place] [address] * Influenza A/B, RSV, and COVID-19 PCR Nasopharyngeal (10/08/2024 4:37 PM SURFBOARD DESIGNER) COVID-19 RNA Negative Negative Influenza A RNA Negative Negative [facility] Influenza B RNA Negative Negative [facility] RSV RNA Negative Negative [facility] Comment: Interpretive data: Testing performed by [facility]. This test is performed using the [employer] Xpert Xpress CoV-2/Flu/RSV plus assay. This is a multiplex, real-time reverse transcriptase PCR assay intended for the qualitative detection of nucleic acid from SARS-CoV-2, influenza A, influenza B, and respiratory syncytial virus. This assay has been cleared by the [place] Food and Drug administration. The performance characteristics have been verified by the [facility]. Results must be considered in the clinical context, and a negative result does not rule out infection. Interpretive Data last revised 2023 Nasopharyngeal 10/08/2024 4: 37 PM SURFBOARD DESIGNER 10/08/2024 4:41 PM SURFBOARD DESIGNER Narrative [facility] - 10/08/2024 5:29 PM SURFBOARD DESIGNER Is the Patient experiencing symptoms consistent with COVID?->Yes us Lucinda ELIZABETH LAB MICROBIOLOGY - GENERAL O RDERABLES Final Result Performing Organization Address City/[facility]/ZIP Co de Phone Number [facility] [address] [place] [address] * eGFR (10/08/2024 4:37 PM SURFBOARD DESIGNER) Pathologist [facility] eGFR >90 >=60 mL/min/1. 73 m2 Comment: Interpretive Data Reference Interval Normal >/= 90 mL/min/1.73m2 Mildly decreased* 60 - 89 mL/min/1.73m2 Mildly to moderately decreased 45 - 59 mL/min/1.73m2 Moderately to severely decreased 30 - 44 mL/min/1.73m2 Severely decreased 15 - 29 mL/min/1.73m2 Kidney Failure < 15 mL/min/1.73m2 *Relative to young adult level Estimated glomerular filtration rate is determined by the 2020 CKD-EPI equation recommended by the National Kidney Foundation (A Unifying Approach to GFR Estimation: Recommendations of the NKF-ASK Task Force on Reassessing the Inclusion of Race in Diagnosing Kidney Disease, JASN 2020). The CKD-EPI equation should not be used for patients with unstable renal function and has not been validated in children and those over 70. Current interpretive data was last reviewed 2021. Blood 10/08/2024 4:37 PM SURFBOARD DESIGNER 10/08/2024 4:41 PM SURFBOARD DESIGNER us Lucinda ELIZABETH LAB BLOOD ORDERABLES Final R esult Performing Organization Address City/[facility]/ZIP Co de Phone Number [facility] [address] Department [place] [address] * Differential, auto (10/08/2024 4:37 PM SURFBOARD DESIGNER) Pathologist [facility] Neutrophil abs 4.8 1.5 - 6.5 K/cumm Imm gran abs 0.1 0.0 - 0.1 K/cumm [facility] Lymphocyte abs 2.0 0.8 - 3.3 K/cumm [facility] Monocyte abs 0.4 0.2 - 0.8 K/cumm [facility] Eosinophil abs 0.2 0.0 - 0.5 K/cumm [facility] Basophil abs 0.1 0.0 - 0.1 K/cumm [facility] Neutrophil pct 64.4 % [facility] Comment: Interpretive Data Percent cell count reference ranges are not reported, since discordance with absolute values may lead to misinterpretation of CBC data. Current Interpretive Data was last revised on 2017. Imm gran pct 0.7 % [facility] Comment: Interpretive Data Percent cell count reference ranges are not reported, since discordance with absolute values may lead to misinterpretation of CBC data. Current Interpretive Data was last revised on 2017. Lymphocyte pct 26.2 % [facility] Comment: Interpretive Data Percent cell count reference ranges are not reported, since discordance with absolute values may lead to misinterpretation of CBC data. Current Interpretive Data was last revised on 2017. Monocyte pct 5.7 % [facility] Comment: Interpretive Data Percent cell count reference ranges are not reported, since discordance with absolute values may lead to misinterpretation of CBC data. Current Interpretive Data was last revised on 2017. Eosinophil pct 2.1 % [facility] Comment: Interpretive Data Percent cell count reference ranges are not reported, since discordance with absolute values may lead to misinterpretation of CBC data. Current Interpretive Data was last revised on 2017. Basophil pct 0.9 % [facility] Comment: Interpretive Data Percent cell count reference ranges are not reported, since discordance with absolute values may lead to misinterpretation of CBC data. Current Interpretive Data was last revised on 2017. Blood 10/08/2024 4:37 PM SURFBOARD DESIGNER 10/08/2024 4:41 PM SURFBOARD DESIGNER us Lucinda ELIZABETH LAB BLOOD ORDERABLES Final R esult [facility] [address] [facility] Department [place] [address] * CBC with auto differential (10/08/2024 4:37 PM SURFBOARD DESIGNER) WBC 7.5 3.8 - 9.9 K/cumm Hgb 15.8 13.0 - 17.5 g/dL [facility] Hct 45.7 38.9 - 50.3 % [facility] Plt 227 150 - 400 K/cumm [facility] MPV 11.6 9.1 - 12.3 fL [facility] RBC 5.09 4.30 - 5.80 M/cumm [facility] MCV 89.8 81.3 - 96.4 fL [facility] MCH 31.0 27.1 - 33.3 pg [facility] MCHC 34.6 32.3 - 35.7 g/dL [facility] RDW CV 13.1 11.1 - 14.9 % [facility] RDW SD 43.1 35.7 - 48.1 fL [facility] NRBC abs 0.00 0.00 - 0.01 K/cumm [facility] Blood 10/08/2024 4:37 PM SURFBOARD DESIGNER 10/08/2024 4:41 PM SURFBOARD DESIGNER Lucinda ELIZABETH LAB BLOOD ORDERABLES Final R esult Performing Organization Address City/[facility]/ZIP Co de Phone Number [address] [place] [address] * (ABNORMAL) Phosphorus (10/08/2024 4:37 PM SURFBOARD DESIGNER) Pathologist [facility] Phosphorus, pl 2.1(L) 2.3 - 4.5 mg/dL Blood 10/08/2024 4:37 PM SURFBOARD DESIGNER 10/08/2024 4:41 PM SURFBOARD DESIGNER Lucinda ELIZABETH LAB BLOOD ORDERABLES Final R esult Performing Organization Address City/State/[facility] Co de Phone Number [address] [place] [address] * Magnesium (10/08/2024 4:37 PM SURFBOARD DESIGNER) Pathologist [facility] Magnesium 2.2 1.4 - 2.5 mg/dL Blood 10/08/2024 4:37 PM SURFBOARD DESIGNER 10/08/2024 4:41 PM SURFBOARD DESIGNER Lucinda ELIZABETH LAB BLOOD ORDERABLES Final R esult Performing Organization Address [facility] de Phone Number [address] [address] * (ABNORMAL) Ethanol (10/08/2024 4:37 PM SURFBOARD DESIGNER) Pathologist [facility] Ethanol 42(H) <=10 mg/dL Comment: Interpretive Data Legal limit of intoxication > or = 80 mg/dL Levels > or = 400 mg/dL are potentially TOXIC. Current interpretive data was last revised on 2018. Blood 10/08/2024 4:37 PM SURFBOARD DESIGNER 10/08/2024 4:41 PM SURFBOARD DESIGNER Lucinda ELIZABETH LAB BLOOD ORDERABLES Final [facility] Performing Organization Address [facility] de Phone Number [address] [address] * Comprehensive metabolic panel (10/08/2024 4:37 PM SURFBOARD DESIGNER) [facility] Sodium 139 135 - 145 mmol/L Potassium, pl 3.8 3.3 - 4.9 mmol/L [facility] Comment:Hemolyzed; Potassium value may be falsely elevated by as much as 1.0 mmol/L. Suggest redraw and reanalysis. Chloride 101 97 - 110 mmol/L [facility] CO2 24 22 - 32 mmol/L [facility] Anion gap 14 2 - 15 mmol/L [facility] BUN 11 6 - 25 mg/dL [facility] Creatinine 1.03 0.80 - 1.30 mg/dL [facility] Glucose 111 70 - 199 mg/dL [facility] Comment: Interpretive Data Fasting glucose >/= 126 mg/dl is diagnostic for diabetes. Fasting is defined as no caloric intake for at least 8 hours. Fasting glucose between 100 mg/dl to 125 mg/dl is diagnostic of prediabetes. In a patient with classic symptoms of hyperglycemia or hyperglycemic crisis, a random glucose >/= 200 mg/dl is diagnostic for diabetes. In the absence of unequivocal hyperglycemia, results should be confirmed by repeat testing. The classification and Diagnosis of Diabetes Diabetes Care 202; 46: S19-S40. Current interpretive data was last revised 2022. Calcium 9.8 8.5 - 10.3 mg/dL [facility] Bilirubin, total 0.5 0.1 - 1.2 mg/dL [facility] Protein, pl 8.2 6.5 - 8.5 g/dL [facility] Albumin 4.7 3.5 - 5.0 g/dL [facility] Alk phos 94 40 - 130 Units/L [facility] ALT 30 7 - 55 Units/L [facility] AST See Comment 10 - 50 [facility] Comment:Credited; Hemolyzed Specimen Blood 10/08/2024 4:37 PM SURFBOARD DESIGNER 10/08/2024 4:41 PM SURFBOARD DESIGNER us Lucinda ELIZABETH LAB BLOOD ORDERABLES Final R esult [facility] [address] [facility] Department [place] [address] * XR Chest 1 Vw Portable (09/14/2024 5:00 PM SURFBOARD DESIGNER) Anatomical Region Laterality Modality Body, Chest N/A Computed Radiogr aphy 09/14/2024 5:43 PM SURFBOARD DESIGNER Narrative 09/14/2024 5:44 PM SURFBOARD DESIGNER EXAM DESCRIPTION: XR CHEST 1 VIEW REASON FOR STUDY: medical clearance For Medical Clearance. Per Pt he was supposed to be admitted today for warm handoff. Pt reports he over slept for his appointment. Pt admits to being a 1/5th a day of vodka drinker with last drink being 10am, where he had 4 shots of vodka. Pt report RLQ pain x3days w/ diarrhea. Smoker TECHNIQUE: Single radiographic view(s) of the chest. COMPARISON: 07/02/2024 FINDINGS: LUNGS: No focal opacity, pleural effusion, or pneumothorax. HEART/MEDIASTINUM: Cardiac silhouette normal in size. Mediastinal and hilar contours appear normal. LINES/TUBES: None. BONES: No acute osseous abnormality. IMPRESSION: No acute cardiopulmonary abnormality. THIS IS AN ELECTRONICALLY VERIFIED FINAL REPORT 09/14/2024 5:44 PM - Electronically signed by Candelario RODRIGUEZ: MICHAEL Report ID: [id number] Reading Location: [id number] Procedure Note Candelario Ponce MD - 09/14/2024 EXAM DESCRIPTION: XR CHEST 1 VIEW REASON FOR STUDY: medical clearance For Medical Clearance. Per Pt he was supposed to be admitted today forwarm handoff. Pt reports he over slept for his appointment. Pt admits tobeing a 1/5th a day of vodka drinker with last drink being 10am, where he had 4 shots of vodka. Pt report RLQ pain x3days w/ diarrhea. Smoker TECHNIQUE: Single radiographic view(s) of the chest. COMPARISON: 07/02/2024 FINDINGS: LUNGS: No focal opacity, pleural effusion, or pneumothorax. HEART/MEDIASTINUM: Cardiac silhouette normal in size. Mediastinal andhilar contours appear normal. LINES/TUBES: None. BONES: No acute osseous abnormality. IMPRESSION: No acute cardiopulmonary abnormality. THIS IS AN ELECTRONICALLY VERIFIED FINAL REPORT 09/14/2024 5:44 PM - Electronically signed by Candelario Ponce M.D. KH: MICHAEL Report ID: [id number] Reading Location: [id number] Dianne Noel MD IMG XR PROCEDURES F inal Result * Influenza A/B, RSV, and COVID-19 PCR Nasopharyngeal (09/14/2024 4:13 PM SURFBOARD DESIGNER) COVID-19 RNA Negative Negative Influenza A RNA Negative Negative [facility] Influenza B RNA Negative Negative [facility] RSV RNA Negative Negative [facility] ([place] Comment: Interpretive data: Testing performed by [facility]. This test is performed using the [employer] Xpert Xpress CoV-2/Flu/RSV plus assay. This is a multiplex, real- time reverse transcriptase PCR assay intended for the qualitative detection of nucleic acid from SARS-CoV-2, influenza A, influenza B, and respiratory syncytial virus. This assay has been cleared by the [place] Food and Drug administration. The performance characteristics have been verified by the [facility]. Results must be considered in the clinical context, and a negative result does not rule out infection. Interpretive Data last revised 2023 Nasopharyngeal 09/14/2024 4: 13 PM SURFBOARD DESIGNER 09/14/2024 4:19 PM SURFBOARD DESIGNER Narrative [facility] ([place]) - 09/14/2024 5:01 PM SURFBOARD DESIGNER Is the Patient experiencing symptoms consistent with COVID?->Yes us Dianne Noel MD LAB MICROBIOLOGY - GENERAL ORDERABLES Final Result [facility] ([place]) [address] [facility] Department [place] [address] * Urinalysis reflex to microscopic and culture Urine (09/14/2024 4:13 PM SURFBOARD DESIGNER) Color, ur Yellow Yellow Clarity, ur Clear Clear [facility] ([place]) Specific gravity, ur 1.011 1.003 - 1.030 [facility] ([place]) pH, urine 5.5 [facility] Comment: Interpretive Data U rine pH is affected by diet, medications, systemic acid-base disturbances, and renal tubular function. pH may affect urinary stone formation. For example, urine pH below 6.0 may help reduce the tendency for calcium phosphate stones and pH greater than 6.0 may reduce the tendency for uric acid stone formation. Source: [facility] [employer] Current Interpretive Data was last revised on 2017 Protein, ur ql Negative Negative [facility] Glucose, ur ql Negative Negative [facility] ([place]) Ketones, ur Negative Negative [facility]) Bilirubin, ur Negative Negative [facility] ([place]) Blood, ur Negative Negative [facility]) Urobilinogen, ur <2.0 <2.0 mg/dL [facility] ([place]) Nitrite, ur Negative Negative [facility]) Leukocyte esterase, ur Negative Negative [facility] ([place]) UA reflex comment Reflex conditions for microscopic UA and culture not met. [facility] ([place]) Urine 09/14/2024 4:13 PM SURFBOARD DESIGNER 09/14/2024 4:19 PM SURFBOARD DESIGNER Dianne Noel MD LAB MICROBIOLOGY - GENERAL ORDERABLES Final Result [facility] ([place] [address] [facility] Department [place] [address] * (ABNORMAL) Drugs of Abuse Screen, Urine without Confirmation (09/14/2024 4:13 PM SURFBOARD DESIGNER) Amphetamine, ur Not Detected CutOff 500ng/mL Comment: Interpretive Data - Amphetamines: Samples containing greater than 500 ng/mL d-methamphetamine or other cross-reacting amphetamine compounds are reported as positive. Amphetamine immunoassays are subject to significant false positive rates due to cross-reactivity of non-amphetamine drugs. Confirmatory testing required for definitive results. Current Interpretive Data was last reviewed 2023. Barbiturates, ur Not Detected CutOff 200ng/mL [facility] ([place]) Comment: Interpretive Data - Barbiturates: Samples containing greater than 200 ng/mL secobarbital or other cross-reacting barbiturate compounds are reported as positive. False positive and false negative results are possible. Confirmatory testing required for definitive results. Current Interpretive Data was last reviewed 2023. Benzodiazepines, ur Not Detected CutOff 100ng/mL [facility] ([place]) Comment: Interpretive Data - Benzodiazepines: Samples containing greater than 100 ng/mL nordiazepam or other cross-reacting compounds are reported as positive. False positive and false negative results are possible. Confirmatory testing required for definitive results. Current Interpretive Data was last reviewed 2023. Cannabinoids, ur Screen Positive, presumptive (A) CutOff 50 ng/mL [facility] ([place]) Comment: Interpretive Data - Cannabinoids: Samples containing greater than 50 ng/mL delta-9 THC -COOH or other cross- reacting compounds are reported as positive. False positive and false negative results are possible. Confirmatory testing required for definitive results. Current Interpretive Data was last reviewed 2023. Cocaine, ur Not Detected CutOff 150ng/mL [facility] ([place]) Comment: Interpretive Data - Cocaine: Samples containing greater than 150 ng/mL benzoylecgonine or other cross- reacting compounds are reported as positive. False positive and false negative results are possible. Confirmatory testing required for definitive results. Current Interpretive Data was last reviewed 2023. Fentanyl, Ur Not Detected CutOff 5 ng/mL [facility] ([place]) Comment: Interpretive Data - Fentanyl: Samples containing greater than 5 ng/mL norfentanyl, fentanyl, or other cross-reacting fentanyl compounds are reported as positive. False positive and false negative results are possible. Confirmatory testing required for definitive results. Current Interpretive Data was last reviewed 2023. Methadone, ur Not Detected CutOff 300ng/mL [facility] ([place]) Comment: Interpretive Data - Methadone: Samples containing greater than 300 ng/mL d,l-methadone or other cross-reacting compounds are reported as positive. False positive and false negative results are possible. Confirmatory testing required for definitive results. Current Interpretive Data was last reviewed 2023. Opiates, ur Not Detected CutOff 300ng/mL [facility] ([place]) Comment: Interpretive Data - Opiates: Samples containing greater than 300 ng/mL morphine or other cross-reacting compounds are reported as positive. False positive and false negative results are possible. Confirmatory testing required for definitive results. Current Interpretive Data was last reviewed 2023. Oxycodone, ur Not Detected CutOff 100ng/mL [facility] ([place]) Comment: Interpretive Data - Oxycodone: Samples containing greater than 100 ng/mL oxycodone or other cross-reacting compounds are reported as positive. False positive and false negative results are possible. Confirmatory testing required for definitive results. Current Interpretive Data was last reviewed 2023. Phencyclidine, ur Not Detected CutOff 25 ng/mL [facility] ([place]) Comment: Interpretive Data - Phencyclidine: Samples containing greater than 25 ng/mL phencyclidine or other cross-reacting compounds are reported as positive. False positive and false negative results are possible. Confirmatory testing required for definitive results. Current Interpretive Data was last reviewed 2023. Urine Creatinine 99 mg/dL [facility] ([place]) Comment: Interpretive Data Urine Creatinine: < 10 mg/dL is extremely dilute = or > 10 but < 20 mg/dL is dilute = or > 20 mg/dL is normal Current Interpretive Data was last revised on 2017. Urine 09/14/2024 4:13 PM SURFBOARD DESIGNER 09/14/2024 4:19 PM SURFBOARD DESIGNER Narrative [facility] ([place]) - 09/14/2024 4:44 PM SURFBOARD DESIGNER Drug of Abuse screening is performed by immunoassay for medical purposes only. This is not to be used for Pain Management purposes. us David Sargent MD LAB URINE ORDERABLE S Final Result [facility] [address] [facility] Department [place] [address] * eGFR (09/14/2024 1:19 PM SURFBOARD DESIGNER) eGFR >90 >=60 mL/min/1. 73 m2 Comment: Interpretive Data Reference Interval Normal >/= 90 mL/min/1.73m2 Mildly decreased* 60 - 89 mL/min/1.73m2 Mildly to moderately decreased 45 - 59 mL/min/1.73m2 Moderately to severely decreased 30 - 44 mL/min/1.73m2 Severely decreased 15 - 29 mL/min/1.73m2 Kidney Failure < 15 mL/min/1.73m2 *Relative to young adult level Estimated glomerular filtration rate is determined by the 2020 CKD-EPI equation recommended by the National Kidney Foundation (A Unifying Approach to GFR Estimation: Recommendations of the NKF-ASK Task Force on Reassessing the Inclusion of Race in Diagnosing Kidney Disease, JASN 2020). The CKD-EPI equation should not be used for patients with unstable renal function and has not been validated in children and those over 70. Current interpretive data was last reviewed 2021. Blood 09/14/2024 1:19 PM SURFBOARD DESIGNER 09/14/2024 1:22 PM SURFBOARD DESIGNER us David Sargent MD LAB BLOOD ORDERABLE S Final Result [facility] ([place] [address] [facility] Department [place] [address] * Differential, auto (09/14/2024 1:19 PM SURFBOARD DESIGNER) Neutrophil abs 2.6 1.5 - 6.5 K/cumm Imm gran abs 0.0 0.0 - 0.1 K/cumm [facility] ([place]) Lymphocyte abs 2.2 0.8 - 3.3 K/cumm [facility] ([place]) Monocyte abs 0.3 0.2 - 0.8 K/cumm [facility] ([place]) Eosinophil abs 0.2 0.0 - 0.5 K/cumm [facility] ([place]) Basophil abs 0.1 0.0 - 0.1 K/cumm [facility] ([place]) Neutrophil pct 47.9 % [facility] ([place] Comment: Interpretive Data Percent cell count reference ranges are not reported, since discordance with absolute values may lead to misinterpretation of CBC data. Current Interpretive Data was last revised on 2017. Imm gran pct 0.2 % [facility] ([place]) Comment: Interpretive Data Percent cell count reference ranges are not reported, since discordance with absolute values may lead to misinterpretation of CBC data. Current Interpretive Data was last revised on 2017. Lymphocyte pct 41.0 % [facility] ([place] Comment: Interpretive Data Percent cell count reference ranges are not reported, since discordance with absolute values may lead to misinterpretation of CBC data. Current Interpretive Data was last revised on 2017. Monocyte pct 5.7 % [facility] ([place] Comment: Interpretive Data Percent cell count reference ranges are not reported, since discordance with absolute values may lead to misinterpretation of CBC data. Current Interpretive Data was last revised on 2017. Eosinophil pct 3.9 % [facility] ([place] Comment: Interpretive Data Percent cell count reference ranges are not reported, since discordance with absolute values may lead to misinterpretation of CBC data. Current Interpretive Data was last revised on 2017. Basophil pct 1.3 % [facility] ([place]) Comment: Interpretive Data Percent cell count reference ranges are not reported, since discordance with absolute values may lead to misinterpretation of CBC data. Current Interpretive Data was last revised on 2017. Blood 09/14/2024 1:19 PM SURFBOARD DESIGNER 09/14/2024 1:22 PM SURFBOARD DESIGNER us David Sargent MD LAB BLOOD ORDERABLE S Final Result [facility] ([place] [address] [facility] [place] [address] * CBC with auto differential (09/14/2024 1:19 PM SURFBOARD DESIGNER) WBC 5.4 3.8 - 9.9 K/cumm Hgb 15.2 13.0 - 17.5 g/dL [facility] ([place]) Hct 44.1 38.9 - 50.3 % [facility] ([place]) Plt 227 150 - 400 K/cumm [facility] ([place]) MPV 11.4 9.1 - 12.3 fL [facility] ([place]) RBC 4.92 4.30 - 5.80 M/cumm [facility] ([place]) MCV 89.6 81.3 - 96.4 fL [facility] ([place]) MCH 30.9 27.1 - 33.3 pg [facility] ([place]) MCHC 34.5 32.3 - 35.7 g/dL [facility] ([place]) RDW CV 13.2 11.1 - 14.9 % [facility] ([place]) RDW SD 43.6 35.7 - 48.1 fL [facility] ([place]) NRBC abs 0.00 0.00 - 0.01 K/cumm [facility] ([place]) Blood 09/14/2024 1:19 PM SURFBOARD DESIGNER 09/14/2024 1:22 PM SURFBOARD DESIGNER us David Sargent MD LAB BLOOD ORDERABLE S Final Result [facility] ([place]) [address] [facility] [place] [address] * Lipase (09/14/2024 1:19 PM SURFBOARD DESIGNER) Lipase 18 10 - 99 Units/L Blood 09/14/2024 1:19 PM SURFBOARD DESIGNER 09/14/2024 4:09 PM SURFBOARD DESIGNER us Dianne Noel MD LAB BLOOD ORDERABLE S Final Result [facility] ([place]) [address] [facility] [place] [address] * (ABNORMAL) Ethanol (09/14/2024 1:19 PM SURFBOARD DESIGNER) Ethanol 121(H) <=10 mg/dL Comment: Interpretive Data Legal limit of intoxication > or = 80 mg/dL Levels > or = 400 mg/dL are potentially TOXIC. Current interpretive data was last revised on 2018. Blood 09/14/2024 1:19 PM SURFBOARD DESIGNER 09/14/2024 1:22 PM SURFBOARD DESIGNER us David Sargent MD LAB BLOOD ORDERABLE S Final Result [facility] ([place] [address] [facility] [place] [address] * (ABNORMAL) Comprehensive metabolic panel (09/14/2024 1:19 PM SURFBOARD DESIGNER) Sodium 137 135 - 145 mmol/L Potassium, pl 3.4 3.3 - 4.9 mmol/L [facility] ([place]) Chloride 102 97 - 110 mmol/L [facility] ([place]) CO2 21(L) 22 - 32 mmol/L [facility] ([place] Anion gap 13 2 - 15 mmol/L [facility] ([place] BUN 9 6 - 25 mg/dL [facility] ([place]) Creatinine 1.02 0.80 - 1.30 mg/dL [facility] ([place]) Glucose 147 70 - 199 mg/dL [facility] ([place]) Comment: Interpretive Data Fasting glucose >/= 126 mg/dl is diagnostic for diabetes. Fasting is defined as no caloric intake for at least 8 hours. Fasting glucose between 100 mg/dl to 125 mg/dl is diagnostic of prediabetes. In a patient with classic symptoms of hyperglycemia or hyperglycemic crisis, a random glucose >/= 200 mg/dl is diagnostic for diabetes. In the absence of unequivocal hyperglycemia, results should be confirmed by repeat testing. The classification and Diagnosis of Diabetes Diabetes Care 2021; 46: S19-S40. Current interpretive data was last revised 2022. Calcium 8.9 8.5 - 10.3 mg/dL [facility] ([place] Bilirubin, total 0.8 0.1 - 1.2 mg/dL [facility] ([place]) Protein, pl 7.8 6.5 - 8.5 g/dL [facility] ([place]) Albumin 4.7 3.5 - 5.0 g/dL [facility] ([place]) Alk phos 82 40 - 130 Units/L [facility] ([place]) ALT 11 7 - 55 Units/L [facility] ([place] AST 19 10 - 50 Units/L [facility] ([place]) Blood 09/14/2024 1:19 PM SURFBOARD DESIGNER 09/14/2024 1:22 PM SURFBOARD DESIGNER us David Sargent MD LAB BLOOD ORDERABLE S Final Result [facility] ([place] [address] [facility] [place] [address] from Last 3 Months Insurance [employer] [facility] Advance Directives For more information, please contact: [phone] * Full Code (Latest Code Status on File) Date Activated Date Inactivated Comments 10/09/2024 12:43 PM 10/11/2024 1:46 PM * Full Code Date Activated Date Inactivated Comments 07/02/2024 2:00 PM 07/04/2024 7:55 PM * Full Code Date Activated Date Inactivated Comments 05/02/2024 2:34 PM 05/04/2024 5:37 PM Care Teams Needle Loom Setter Relationship Specialty Start Date End Date Candelario Diamond MD [address] [facility] [place] [address] PCP - General Internal Medicine 05/09/24
--- OUTSIDE RECORDS SUMMARY | 2024-10-14 13:14 | XMS_ITS | Continuity of Care Document ---
Author Organization [facility] Address [address] [place] [address] Phone Care Team Providers Care Driver Starting Gate Name Role Phone Gerardo Banda Unavailable Unavailable Medications Medication Instructions Dosage Effective Dates (start - stop) Status Comments TYLENOL W/CODEINE NO.3 30-300MGCAPSULE Take 1 or 2 tablets by mouth every 6-8 hrs prn for pain. - Active Procedures Procedure Date X-ray exam of hand, 3+ views Clsd trtmnt mtcrpl Fx sng w/o manip X-ray exam of hand, 3+ views Hand Orthosis, Metacarpal Fracture Ortho sis, Prefa Advance Directives Directive Yes / No Effective Date File Name No Information Encounters Encounter Description Practice Location Reason(s) For Visit Diagnoses Date Provider Providers Copied on Encounter [facility], [address] [place] [address], [id number], tel:[phone] [facility] No Information 1 Maurizio Carrillo. [address], [place], [id number] , [place]. tel:[phone] Referring Provider: Beny Morley, [address] [place], [address]. tel:[phone] [facility], [address] [place] [address], [id number], tel:[phone] [facility] No Information 1 Jaleel Burroughs. [address], [place], [id number] , . tel:[phone] Referring Provider: Beny Morley, [address] [place], [address]. tel:[phone] [facility], [address] [place] [address], [id number], tel:[phone] [facility] No Information 1 Maurizio Carrillo. [address] [place] [address], [id number] , . tel:[phone] Referring Provider: Beny Morley, [address] [place], [address]. tel:[phone] [facility], [address] [place] [address], [id number], tel:[phone] [facility] No Information 1 Jaleel Burroughs. [address] [place] [address], [id number] , . tel:[phone] Referring Provider: Manjeet Winter, [address] [place], [address] . tel:[phone] Family History Family Member Type Diagnosis Age At Onset No Information Payers Payer name Insurance type Covered constitution party ID Rafael allison(s) MAN[employer] Student [employer] Insurance CI [id number] Social History Type Description Quantity Date Captured Comments Sex Male Smoking Status No Information Chief Complaint And Reason For Visit No Information Reason For Referral Reason For Referral No Information History Of Present Illness Encounter Date Complaint History Of Prese nt Illness No Information Functional Status Date Functional Assessmen t No Information Instructions Date Instruction Additional Infor mation No Information Assessments Type Assessment Date No Information Patient Care Teams Name Effective Dates (start - stop) Status Members No Information
--- OUTSIDE RECORDS SUMMARY | 2024-10-14 13:14 | XMS_ITS | Clinical Summary ---
Author Organization [facility] Address [address] [place] [address] Care Team Providers Care Glue Mounter Operator Name Role Phone None, Provider MD Primary Care Provider Unavaila ble Allergies No known active allergies Medications QUEtiapine (SEROQUEL) 400 MG tablet Take 2 tablets (800 mg total) by mouth nightly at bedtime. 03/16/2024 Active OXcarbazepine (TRILEPTAL) 300 MG tablet Take 1 tablet (300 mg total) by mouth 2 (two) times daily. Active sertraline (ZOLOFT) 100 MG tablet Take 2 tablets (200 mg total) by mouth daily. Active multivitamin (THERA) tablet Take 1 tablet by mouth daily. Active thiamine 100 MG Tab Take 1 tablet (100 mg total) by mouth daily. Active acetaminophen (TYLENOL) 500 MG tablet Take 1 tablet (500 mg total) by mouth every 8 (eight) hours as needed for Pain. Active ibuprofen (MOTRIN) 800 MG tablet Take 1 tablet (800 mg total) by mouth every 6 (six) hours as needed for Pain. 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 [facility] Utilities Answer Date Recorded In the past 12 months has [facility] [employer], gas, oil, or water Before the Call threatened to shut off services in your home? Patient declined 04/12/2024 Humiliation, Afraid, Rape, and Kick questionnair e Answer Date Recorded Within the last year, have y ou been afraid of your partner or ex-partner? Patient declined 04/12/2024 Within the last year, have y ou been humiliated or emotionally abused in other ways by your partner or ex-partner? Patient declined 04/12/2024 Within the last year, have y ou been kicked, hit, slapped, or otherwise physically hurt by your partner or ex-partner? Patient declined 04/12/2024 Within the last year, have y ou been raped or forced to have any kind of sexual activity by your partner or ex-partner? Patient declined 04/12/2024 Overall Financial Resource Strain (CARDIA) Answe r Date Recorded How hard is it for you to pa y for the very basics like food, housing, medical care, and heating? Patient declined 04/12/2024 Hunger Vital Sign Answer Date Recorded Within the past 12 months, y ou worried that your food would run out before you got the money to buy more. Patient declined Within the past 12 months, t he food you bought just didn't last and you didn't have money to get more. Patient declined PRAPARE - Transportation Answer Date Re corded In the past 12 months, has l ack of transportation kept you from medical appointments or from getting medications? Patient declined 04/12/2024 In the past 12 months, has l ack of transportation kept you from meetings, work, or from getting things needed for daily living? Patient declined 04/12/2024 Housing Stability Vital Sign Answer Tej e Recorded In the last 12 months, was t here a time when you were not able to pay the mortgage or rent on time? Patient declined 04/12/20 24 In the past 12 months, how m any times have you moved where you were living? 0 04/12/2024 At any time in the past 12 m [facility], were you homeless or living in a fci (including now)? Patient declined 04/12/2024 Sex and Gender Information Value Date Recorded Sex Assigned at Not on file Legal Sex Male 4:06 AM [employer] Gender Identity Not on file Sexual Orientation Not on file Last Filed Vital Signs Vital Sign Reading Time Taken Comments Blood Pressure 122/96 04/13/2024 12:22 PM CDT Pulse 68 04/13/2024 12:22 PM CDT Temperature 36.9 C (98.4 F) 04/13/2024 12:22 PM CDT Respiratory Rate 18 04/13/2024 12:22 PM CDT Oxygen Saturation 100% 04/13/2024 12:22 PM CDT Inhaled Oxygen Concentration - - Weight 58.4 kg (128 lb 12 oz) 04/12/2024 4:25 AM CDT Height 175.3 cm (5' 9 ) 04/11/2024 3:15 PM CDT Body Mass Index 19.01 04/11/2024 3:15 PM CDT Plan of Treatment Health Maintenance Due Date Last Done Comments Annual Physical 1991 DTaP, Tdap and Td Vaccines (6 - Tdap) 1999 07/14/1993, 05/04/1990, 02/21/1989, Additional history exists Hepatitis C 2006 COVID-19 Vaccine ( season) 2024 07/14/2021, 01/02/2021, 12/12/2020 Influenza Adult (#1) 2024 Hepatitis B Vaccines Completed 04/05/1996, 09/01/1995, 07/28/1995 HPV Vaccines Aged Out No longer eligi ble based on patient's age to complete this topic Meningococcal B Vaccine Aged Out No l onger eligible based on patient's age to complete this topic Meningococcal Vaccine Aged Out No kelsy mansoor eligible based on patient's age to complete this topic Pneumococcal Vaccine: Pediatrics (0 to 5 Years) and At-Risk Patients (6 to 64 Years) Aged Out No longer eligible based on patient's age to complete this topic RSV Immunizations Under 20 Months Aged Out No longer eligible based on patient's age to complete this topic Goals Goal Patient Goal Type Associated Problems Recent Progress Patient-Stated? Author Health - patient able to perform ADLs independently Lifestyle No Mary Mclean RN Health - patient able to perform ADLs independently Lifestyle No Mary Mclean RN Insurance MEDICAID Advance Directives * Full Code (Latest Code Status on File) Date Activated Date Inactivated Comments 04/11/2024 6:47 PM 04/13/2024 6:13 PM Care Teams Glue Mounter Operator Relationship Specialty Start Date End Date None, Provider, PCP - General 07/13/21
--- OUTSIDE RECORDS SUMMARY | 2024-10-14 13:14 | XMS_ITS | Clinical Summary ---
Author Organization [facility] Address [address] [place] [address] Care Team Providers Care Cocoa Roaster Name Role Phone Candelario Diamond MD Primary Care Provider [phone] Allergies No known active allergies Medications sertraline [...] 07/02/2024 Alcohol withdrawal syndrome without complication 05/02/2024 Encounters Date Type Department Care Team Description 10/08/2024 10:41 PM ENGAGEMENT LIAISON - 10/11/2024 9:40 AM ENGAGEMENT LIAISON Hospital Encounter [address] [address] Cheng Hodgson MD Quaizar, Huzaifa, MD Sajjad, Sohaib, MD Alcohol withdrawal syndrome without complication (HCC) (Primary Dx) Discharge Disposition: Discharge to other rehab with plan readmit 09/14/2024 3:50 PM ENGAGEMENT LIAISON - 09/14/2024 6:21 PM ENGAGEMENT LIAISON Emergency [facility] Emergency Department [address] [place] [address] Dianne Noel MD Alcohol abuse (Primary Dx) Discharge Disposition: Discharge to home or self care 09/14/2024 Documentation [facility] Warm Hand Off Program [address] [place], [place] [phone] Shwetha Sandoval 09/10/2024 AMH [facility] Initial Eligibility [facility] [address] [place], [place] [phone] Jose Almonte 08/30/2024 Telephone [facility] Off [facility] [address] [place], [place] [phone] Shwetha Sandoval from Last 3 Months Social History Tobacco Use Types Packs/Day Years Used Date Smoking Tobacco: Every Day Vaping Tobacco Cessation:Ready to Q uit: No; Counseling Given: Yes [facility] Utilities Answer Date Recorded In the past 12 months has th e electric, gas, oil, or water company threatened [...] week 10/09/2024 How often do you attend [facility] ch or yazidism services? Never 10/09/2024 Do you belong to any clubs o r organizations such as orthodox groups, unions, fraternal or athletic groups, or [...] any time in the past 12 m [facility], were you homeless or living in a senior living (including now)? No 10/09/2024 Personal Safety Answer Date Recorded Have you ever been in or are you currently in a harmful physical or emotional relationship or is someone making you feel afraid or unsafe? Denies 10/08/2024 Sex and Gender Information Value Date Recorded Sex Assigned at Not on file Legal Sex Male 11:16 PM ENGAGEMENT LIAISON Gender Identity Not on file Sexual Orientation Not on file Obstetrics History Last Filed Vital Signs Vital Sign Reading Time Taken Comments Blood Pressure 158/88 10/11/2024 8:20 AM ENGAGEMENT LIAISON Pulse 59 10/11/2024 8:20 AM ENGAGEMENT LIAISON Temperature 36.7 C (98.1 F) 10/11/2024 8:20 AM ENGAGEMENT LIAISON Respiratory Rate 16 10/11/2024 8:30 AM ENGAGEMENT LIAISON Oxygen Saturation 100% 10/11/2024 8:20 AM ENGAGEMENT LIAISON Inhaled Oxygen Concentration - - Weight 67.1 kg (147 lb 14.9 oz) 025 10:03 AM ENGAGEMENT LIAISON Height 177.8 cm (5' 10 ) 10/09/2024 10: 03 AM ENGAGEMENT LIAISON Body Mass Index 21.23 10/09/2024 10:03 AM ENGAGEMENT LIAISON Plan of Treatment Health Maintenance Due Date Last Done Comments Depression Screening 1988 Hepatitis C Screening 1988 Pneumococcal vaccine <65 (1 of 2 - PCV) 1994 DTaP/Tdap/Td Vaccine (6 - Tdap) 1999 07/14/1993, 05/04/1990, 02/21/1989, Additional history exists Varicella Vaccines (1 of 2 - 13+ 2-dose series) 2001 Regular Well Visit/Exam 18-64 2006 Covid-19 Vaccine (2023- season) 2024 07/14/2021, 01/02/2021, 12/12/2020 Influenza Vaccine (#1) 2024 Hepatitis B Screening Completed 04/05/1996 , 09/01/1995, 07/28/1995 HPV Vaccines Aged Out No longer eligi ble based on patient's age to complete this topic Procedures Procedure Name Priority Date/Time Associated Diagnosis Comments EGFR Routine 10/10/2024 5:50 AM ENGAGEMENT LIAISON DIFFERENTIAL AUTO Routine 10/10/2024 5:5 0 AM ENGAGEMENT LIAISON CBC WITH AUTO DIFFERENTIAL Routine 10/10/2024 5:50 AM ENGAGEMENT LIAISON COMPREHENSIVE METABOLIC PANEL Routine 10/10/2024 5:50 AM ENGAGEMENT LIAISON DRUGS OF ABUSE SCREEN, URINE WITHOUT CONFIRMATION STAT 10/08/2024 4:38 PM ENGAGEMENT LIAISON URINALYSIS AND REFLEX TO MICROSCOPIC AND CULTURE STAT 10/08/2024 4:38 PM ENGAGEMENT LIAISON EGFR STAT 10/08/2024 4:37 PM ENGAGEMENT LIAISON DIFFERENTIAL AUTO STAT 10/08/2024 4:3 7 PM ENGAGEMENT LIAISON PHOSPHORUS STAT 10/08/2024 4:37 PM ENGAGEMENT LIAISON MAGNESIUM STAT 10/08/2024 4:37 PM ENGAGEMENT LIAISON ETHANOL STAT 10/08/2024 4:37 PM ENGAGEMENT LIAISON COMPREHENSIVE METABOLIC PANEL STAT 10/08/2024 4:37 PM ENGAGEMENT LIAISON CBC WITH AUTO DIFFERENTIAL STAT 10/08/2024 4:37 PM ENGAGEMENT LIAISON INFLUENZA A/B, RSV, AND COVID-19 PCR STAT 10/08/2024 4:37 PM ENGAGEMENT LIAISON XR CHEST 1 VIEW ED 09/14/2024 5:00 PM ENGAGEMENT LIAISON DRUGS OF ABUSE SCREEN, URINE WITHOUT CONFIRMATION STAT 09/14/2024 4:13 PM ENGAGEMENT LIAISON INFLUENZA A/B, RSV, AND COVID-19 PCR Routine 09/14/2024 4:13 PM ENGAGEMENT LIAISON URINALYSIS AND REFLEX TO MICROSCOPIC AND CULTURE STAT 09/14/2024 4:13 PM ENGAGEMENT LIAISON LIPASE STAT 09/14/2024 1:19 PM ENGAGEMENT LIAISON EGFR STAT 09/14/2024 1:19 PM ENGAGEMENT LIAISON DIFFERENTIAL AUTO STAT 09/14/2024 1:1 9 PM ENGAGEMENT LIAISON ETHANOL STAT 09/14/2024 1:19 PM ENGAGEMENT LIAISON COMPREHENSIVE METABOLIC PANEL STAT 09/14/2024 1:19 PM ENGAGEMENT LIAISON CBC WITH AUTO DIFFERENTIAL STAT 09/14/2024 1:19 PM ENGAGEMENT LIAISON from Last 3 Months Results * eGFR (10/10/2024 5:50 AM ENGAGEMENT LIAISON) eGFR >90 >=60 mL/min/1. 73 m2 Comment: Interpretive Data Reference Interval Normal >/= 90 mL/min/1.73m2 Mildly decreased* 60 - 89 mL/min/1.73m2 Mildly to moderately decreased 45 - 59 mL/min/1.73m2 Moderately to severely decreased 30 - 44 mL/min/1.73m2 Severely decreased 15 - 29 mL/min/1.73m2 Kidney Failure < 15 mL/min/1.73m2 *Relative to young adult level Estimated glomerular filtration rate is determined by the 2021 CKD-EPI equation recommended by the National Kidney [...] last reviewed 2021. Blood 10/10/2024 5:50 AM ENGAGEMENT LIAISON 10/10/2024 6:00 AM ENGAGEMENT LIAISON Cheng Hodgson MD LAB BLOOD ORDERABLES Final Result [facility] [address] [facility] Department [place] [address] * Differential, auto (10/10/2024 5:50 AM ENGAGEMENT LIAISON) Neutrophil abs 5.3 1.5 - 6.5 K/cumm Imm gran abs 0.0 0.0 - 0.1 K/cumm [facility] Lymphocyte abs 2.3 0.8 - 3.3 K/cumm [facility] Monocyte abs 0.6 0.2 - 0.8 K/cumm [facility] Eosinophil abs 0.3 0.0 - 0.5 K/cumm [facility] Basophil abs 0.1 0.0 - 0.1 K/cumm [facility] Neutrophil pct 62.5 % [facility] Comment: Interpretive Data Percent cell count reference ranges are not reported, since discordance with absolute values may lead to misinterpretation of CBC data. Current Interpretive Data was last revised on 2017. Imm gran pct 0.2 % [facility] Comment: Interpretive Data Percent cell count reference ranges are not reported, since discordance with absolute values may lead to misinterpretation of CBC data. Current Interpretive Data was last revised on 2017. Lymphocyte pct 26.6 % [facility] Comment: Interpretive Data Percent cell count reference ranges are not reported, since discordance with absolute values may lead to misinterpretation of CBC data. Current Interpretive Data was last revised on 2017. Monocyte pct 6.7 % [facility] Comment: Interpretive Data Percent cell count reference ranges are not reported, since discordance with absolute values may lead to misinterpretation of CBC data. Current Interpretive Data was last revised on 2017. Eosinophil pct 3.4 % [facility] Comment: Interpretive Data Percent cell count reference ranges are not reported, since discordance with absolute values may lead to misinterpretation of CBC data. Current Interpretive Data was last revised on 2017. Basophil pct 0.6 % [facility] Comment: Interpretive Data Percent cell count reference ranges are not reported, since discordance with absolute values may lead to misinterpretation of CBC data. Current Interpretive Data was last revised on 2017. Blood 10/10/2024 5:50 AM ENGAGEMENT LIAISON 10/10/2024 6:00 AM ENGAGEMENT LIAISON Cheng Hodgson MD LAB BLOOD ORDERABLES Final Result [place] [id number] [facility] Department [place] [address] * CBC with auto differential (10/10/2024 5:50 AM ENGAGEMENT LIAISON) WBC 8.5 3.8 - 9.9 K/cumm Hgb 14.9 13.0 - 17.5 g/dL [facility] Hct 44.0 38.9 - 50.3 % [facility] Plt 188 150 - 400 K/cumm [facility] MPV 11.6 9.1 - 12.3 fL [facility] RBC 4.78 4.30 - 5.80 M/cumm [facility] MCV 92.1 81.3 - 96.4 fL [facility] MCH 31.2 27.1 - 33.3 pg [facility] MCHC 33.9 32.3 - 35.7 g/dL [facility] RDW CV 13.2 11.1 - 14.9 % [facility] RDW SD 44.5 35.7 - 48.1 fL [facility] NRBC abs 0.00 0.00 - 0.01 K/cumm [facility] Blood 10/10/2024 5:50 AM ENGAGEMENT LIAISON 10/10/2024 6:00 AM ENGAGEMENT LIAISON Cheng Hodgson MD LAB BLOOD ORDERABLES Final Result Performing Organization Address City/State/[facility] Co or Phone Number PAULA [address] [facility] Department [place] [address] * (ABNORMAL) Comprehensive metabolic panel (10/10/2024 5:50 AM ENGAGEMENT LIAISON) Sodium 138 135 - 145 mmol/L Potassium, pl 3.6 3.3 - 4.9 mmol/L [facility] Chloride 106 97 - 110 mmol/L [facility] CO2 21(L) 22 - 32 mmol/L [facility] Anion gap 11 2 - 15 mmol/L [facility] BUN 14 6 - 25 mg/dL [facility] Creatinine 1.02 0.80 - 1.30 mg/dL [facility] Glucose 131 70 - 199 mg/dL [facility] Comment: Interpretive Data Fasting glucose >/= [...] 2022. Calcium 9.6 8.5 - 10.3 mg/dL [facility] Bilirubin, total 0.6 0.1 - 1.2 mg/dL [facility] Protein, pl 7.6 6.5 - 8.5 g/dL [facility] Albumin 4.4 3.5 - 5.0 g/dL [facility] Alk phos 91 40 - 130 Units/L [facility] ALT 24 7 - 55 Units/L [facility] AST 25 10 - 50 Units/L [facility] Blood 10/10/2024 5:50 AM ENGAGEMENT LIAISON 10/10/2024 6:00 AM ENGAGEMENT LIAISON Cheng Hodgson MD LAB BLOOD ORDERABLES Final Result Performing Organization Address City/State/[facility] de Phone Number PAULA [address] [place] [address] * Urinalysis reflex to microscopic and culture Urine (10/08/2024 4:38 PM ENGAGEMENT LIAISON) Color, ur Yellow Yellow Clarity, ur Clear Clear [facility] Specific gravity, ur 1.019 1.003 - 1.030 [facility] pH, urine 5.5 [facility] Comment: Interpretive Data U rine pH is affected by diet, medications, systemic acid-base disturbances, and renal tubular function. pH may affect urinary stone formation. For example, urine pH below 6.0 may help reduce the tendency for calcium phosphate stones and pH greater than 6.0 may reduce the tendency for uric acid stone formation. Source: [facility] Current Interpretive Data was last revised on 2017 Protein, ur ql Negative Negative [facility] Glucose, ur ql Negative Negative [facility] Ketones, ur Negative Negative [facility] Bilirubin, ur Negative Negative [facility] Blood, ur Negative Negative [facility] Urobilinogen, ur <2.0 <2.0 mg/dL [facility] Nitrite, ur Negative Negative [facility] Leukocyte esterase, ur Negative Negative [facility] UA reflex comment Reflex conditions for microscopic UA and culture not met. [facility] Urine 10/08/2024 4:38 PM ENGAGEMENT LIAISON 10/08/2024 4:41 PM ENGAGEMENT LIAISON Lucinda ELIZABETH LAB MICROBIOLOGY - GENERAL O RDERABLES Final Result Performing Organization Address [facility] de Phone Number PAULA [address] [place] [address] * (ABNORMAL) Drugs of Abuse Screen, Urine without Confirmation (10/08/2024 4:38 PM ENGAGEMENT LIAISON) Amphetamine, ur Not Detected CutOff 500ng/mL Comment: Interpretive Data - Amphetamines: Samples containing greater than 500 ng/mL d-methamphetamine or other cross-reacting amphetamine compounds are reported as positive. Amphetamine immunoassays are subject to significant false positive rates due to cross-reactivity of non-amphetamine drugs. Confirmatory testing required for definitive results. Current Interpretive Data was last reviewed 2023. Barbiturates, ur Not Detected CutOff 200ng/mL [facility] Comment: Interpretive Data - Barbiturates: Samples containing greater than 200 ng/mL secobarbital or other cross-reacting barbiturate compounds are reported as positive. False positive and false negative results are possible. Confirmatory testing required for definitive results. Current Interpretive Data was last reviewed 2023. Benzodiazepines, ur Not Detected CutOff 100ng/mL [facility] Comment: Interpretive Data - Benzodiazepines: Samples containing greater than 100 ng/mL nordiazepam or other cross-reacting compounds are reported as positive. False positive and false negative results are possible. Confirmatory testing required for definitive results. Current Interpretive Data was last reviewed 2023. Cannabinoids, ur Screen Positive, presumptive (A) CutOff 50 ng/mL [facility] Comment: Interpretive Data - Cannabinoids: Samples containing greater than 50 ng/mL delta-9 THC -COOH or other cross- reacting compounds are reported as positive. False positive and false negative results are possible. Confirmatory testing required for definitive results. Current Interpretive Data was last reviewed 2023. Cocaine, ur Not Detected CutOff 150ng/mL [facility] Comment: Interpretive Data - Cocaine: Samples containing greater than 150 ng/mL benzoylecgonine or other cross- reacting compounds are reported as positive. False positive and false negative results are possible. Confirmatory testing required for definitive results. Current Interpretive Data was last reviewed 2023. Fentanyl, Ur Not Detected CutOff 5 ng/mL [facility] Comment: Interpretive Data - Fentanyl: Samples containing greater than 5 ng/mL norfentanyl, fentanyl, or other cross-reacting fentanyl compounds are reported as positive. False positive and false negative results are possible. Confirmatory testing required for definitive results. Current Interpretive Data was last reviewed 2023. Methadone, ur Not Detected CutOff 300ng/mL [facility] Comment: Interpretive Data - Methadone: Samples containing greater than 300 ng/mL d,l-methadone or other cross-reacting compounds are reported as positive. False positive and false negative results are possible. Confirmatory testing required for definitive results. Current Interpretive Data was last reviewed 2023. Opiates, ur Not Detected CutOff 300ng/mL [facility] Comment: Interpretive Data - Opiates: Samples containing greater than 300 ng/mL morphine or other cross-reacting compounds are reported as positive. False positive and false negative results are possible. Confirmatory testing required for definitive results. Current Interpretive Data was last reviewed 2023. Oxycodone, ur Not Detected CutOff 100ng/mL [facility] Comment: Interpretive Data - Oxycodone: Samples containing greater than 100 ng/mL oxycodone or other cross-reacting compounds are reported as positive. False positive and false negative results are possible. Confirmatory testing required for definitive results. Current Interpretive Data was last reviewed 2023. Phencyclidine, ur Not Detected CutOff 25 ng/mL [facility] Comment: Interpretive Data - Phencyclidine: Samples containing [...] revised on 2017. Urine 10/08/2024 4:38 PM ENGAGEMENT LIAISON 10/08/2024 4:41 PM ENGAGEMENT LIAISON Narrative [facility] - 10/08/2024 5:07 PM ENGAGEMENT LIAISON Drug of Abuse screening is performed by immunoassay for medical purposes only. This is not to be used for Pain Management purposes. Lucinda ELIZABETH LAB URINE ORDERABLES Final R esult [facility] [address] [facility] Department [place] [address] * Influenza A/B, RSV, and COVID-19 PCR Nasopharyngeal (10/08/2024 4:37 PM ENGAGEMENT LIAISON) COVID-19 RNA Negative Negative Influenza A RNA Negative Negative [facility] Influenza B RNA Negative Negative [facility] RSV RNA Negative Negative [facility] Comment: Interpretive data: Testing performed by [facility]. This test is performed using the Cepheid Xpert Xpress CoV-2/Flu/RSV plus assay. This is a multiplex, real-time reverse transcriptase PCR assay intended for the qualitative detection of nucleic acid from SARS-CoV-2, influenza A, influenza B, and respiratory syncytial virus. This assay has been cleared by the [place] Food and Drug administration. The performance characteristics have been verified by the [facility]. Results must be considered in the clinical context, and a negative result does not rule out infection. Interpretive Data last revised 2023 Nasopharyngeal 10/08/2024 4: 37 PM ENGAGEMENT LIAISON 10/08/2024 4:41 PM ENGAGEMENT LIAISON Narrative [facility] - 10/08/2024 5:29 PM ENGAGEMENT LIAISON Is the Patient experiencing symptoms consistent with COVID?->Yes us Lucinda ELIZABETH LAB MICROBIOLOGY - GENERAL O RDERABLES Final Result [facility] [address] [facility] Department [place] [address] * eGFR (10/08/2024 4:37 PM ENGAGEMENT LIAISON) eGFR >90 >=60 mL/min/1. 73 m2 Comment: [...] last reviewed 2021. Blood 10/08/2024 4:37 PM ENGAGEMENT LIAISON 10/08/2024 4:41 PM ENGAGEMENT LIAISON us Lucinda ELIZABETH LAB BLOOD ORDERABLES Final R esult [facility]UL[facility] [address] [facility] Department [place] [address] * Differential, auto (10/08/2024 4:37 PM ENGAGEMENT LIAISON) Pathologist [facility] Neutrophil abs 4.8 1.5 - 6.5 K/cumm Imm gran abs 0.1 0.0 - 0.1 K/cumm [facility] Lymphocyte abs 2.0 0.8 - 3.3 K/cumm [facility] Monocyte abs 0.4 0.2 - 0.8 K/cumm [facility] Eosinophil abs 0.2 0.0 - 0.5 K/cumm [facility] Basophil abs 0.1 0.0 - 0.1 K/cumm [facility] Neutrophil pct 64.4 % [facility] Comment: Interpretive Data Percent cell count reference ranges are not reported, since discordance with absolute values may lead to misinterpretation of CBC data. Current Interpretive Data was last revised on 2017. Imm gran pct 0.7 % [facility] Comment: Interpretive Data Percent cell count reference ranges are not reported, since discordance with absolute values may lead to misinterpretation of CBC data. Current Interpretive Data was last revised on 2017. Lymphocyte pct 26.2 % [facility] Comment: Interpretive Data Percent cell count reference ranges are not reported, since discordance with absolute values may lead to misinterpretation of CBC data. Current Interpretive Data was last revised on 2017. Monocyte pct 5.7 % [facility] Comment: Interpretive Data Percent cell count reference ranges are not reported, since discordance with absolute values may lead to misinterpretation of CBC data. Current Interpretive Data was last revised on 2017. Eosinophil pct 2.1 % [facility] Comment: Interpretive Data Percent cell count reference ranges are not reported, since discordance with absolute values may lead to misinterpretation of CBC data. Current Interpretive Data was last revised on 2017. Basophil pct 0.9 % [facility] Comment: Interpretive Data Percent cell count reference ranges are not reported, since discordance with absolute values may lead to misinterpretation of CBC data. Current Interpretive Data was last revised on 2017. Blood 10/08/2024 4:37 PM ENGAGEMENT LIAISON 10/08/2024 4:41 PM ENGAGEMENT LIAISON Lucinda ELIZABETH LAB BLOOD ORDERABLES Final R esult Performing Organization Address [facility] Co de Phone Number PAULA [address] [place] [employer] [address] * CBC with auto differential (10/08/2024 4:37 PM ENGAGEMENT LIAISON) Pathologist [facility] WBC 7.5 3.8 - 9.9 K/cumm Hgb 15.8 13.0 - 17.5 g/dL [facility] Hct 45.7 38.9 - 50.3 % [facility] Plt 227 150 - 400 K/cumm [facility] MPV 11.6 9.1 - 12.3 fL [facility] RBC 5.09 4.30 - 5.80 M/cumm [facility] MCV 89.8 81.3 - 96.4 fL [facility] MCH 31.0 27.1 - 33.3 pg [facility] MCHC 34.6 32.3 - 35.7 g/dL [facility] RDW CV 13.1 11.1 - 14.9 % [facility] RDW SD 43.1 35.7 - 48.1 fL [facility] NRBC abs 0.00 0.00 - 0.01 K/cumm [facility] Blood 10/08/2024 4:37 PM ENGAGEMENT LIAISON 10/08/2024 4:41 PM ENGAGEMENT LIAISON Lucinda ELIZABETH LAB BLOOD ORDERABLES Final R esult Performing Organization Address [facility] Co de Phone Number PAULA [address] [place] [employer] [address] * (ABNORMAL) Phosphorus (10/08/2024 4:37 PM ENGAGEMENT LIAISON) Pathologist [facility] Phosphorus, pl 2.1(L) 2.3 - 4.5 mg/dL Blood 10/08/2024 4:37 PM ENGAGEMENT LIAISON 10/08/2024 4:41 PM ENGAGEMENT LIAISON Lucinda ELIZABETH LAB BLOOD ORDERABLES Final R esult Performing Organization Address [facility] Co de Phone Number PAULA [address] [employer] [address] * Magnesium (10/08/2024 4:37 PM ENGAGEMENT LIAISON) Magnesium 2.2 1.4 - 2.5 mg/dL Blood 10/08/2024 4:37 PM ENGAGEMENT LIAISON 10/08/2024 4:41 PM ENGAGEMENT LIAISON Lucinda ELIZABETH LAB BLOOD ORDERABLES Final R [facility] Performing Organization Address [facility] de Phone Number [id number] [employer] [address] * (ABNORMAL) Ethanol (10/08/2024 4:37 PM ENGAGEMENT LIAISON) Ethanol 42(H) <=10 mg/dL Comment: Interpretive Data Legal limit of intoxication > or = 80 mg/dL Levels > or = 400 mg/dL are potentially TOXIC. Current interpretive data was last revised on 2018. Blood 10/08/2024 4:37 PM ENGAGEMENT LIAISON 10/08/2024 4:41 PM ENGAGEMENT LIAISON Lucinda ELIZABETH LAB BLOOD ORDERABLES Final R esult Performing Organization Address [facility] Co de Phone Number [id number] [employer] [address] * Comprehensive metabolic panel (10/08/2024 4:37 PM ENGAGEMENT LIAISON) Sodium 139 135 - 145 mmol/L Potassium, pl 3.8 3.3 - 4.9 mmol/L [facility]UL[facility] Comment:Hemolyzed; Potassium value may be falsely elevated by as much as 1.0 mmol/L. Suggest redraw and reanalysis. Chloride 101 97 - 110 mmol/L [facility] CO2 24 22 - 32 mmol/L [facility] Anion gap 14 2 - 15 mmol/L [facility] BUN 11 6 - 25 mg/dL [facility] Creatinine 1.03 0.80 - 1.30 mg/dL [facility] Glucose 111 70 - 199 mg/dL [facility] Comment: Interpretive Data Fasting glucose >/= [...] 2022. Calcium 9.8 8.5 - 10.3 mg/dL [facility] Bilirubin, total 0.5 0.1 - 1.2 mg/dL [facility] Protein, pl 8.2 6.5 - 8.5 g/dL [facility] Albumin 4.7 3.5 - 5.0 g/dL [facility] Alk phos 94 40 - 130 Units/L [facility] ALT 30 7 - 55 Units/L [facility] AST See Comment 10 - 50 [facility] Comment:Credited; Hemolyzed Specimen Blood 10/08/2024 4:37 PM ENGAGEMENT LIAISON 10/08/2024 4:41 PM ENGAGEMENT LIAISON Lucinda ELIZABETH LAB BLOOD ORDERABLES Final R esult [facility] [address] [facility] Department [place] [address] * XR Chest 1 Vw Portable (09/14/2024 5:00 PM ENGAGEMENT LIAISON) Anatomical Region Laterality Modality Body, Chest N/A Computed Radiogr aphy 09/14/2024 5:43 PM ENGAGEMENT LIAISON Narrative 09/14/2024 5:44 PM ENGAGEMENT LIAISON EXAM DESCRIPTION: XR CHEST 1 VIEW REASON [...] signed by Candelario RODRIGUEZ: MICHAEL Report ID: [id number] Reading Location: [place] [address] Procedure Note Candelario Ponce MD - 09/14/2024 [...] Candelario Ponce M.D. KH: MICHAEL Report ID: [id number] Reading Location: [id number] Dianne Noel MD IMG XR PROCEDURES F inal Result * Influenza A/B, RSV, and COVID-19 PCR Nasopharyngeal (09/14/2024 4:13 PM ENGAGEMENT LIAISON) COVID-19 RNA Negative Negative Influenza A RNA Negative Negative [facility] ([place]) Influenza B RNA Negative Negative [facility] ([place] RSV RNA Negative Negative [facility] ([place]) Comment: Interpretive data: Testing performed by [facility]. This test is performed using the [employer] Xpert Xpress CoV-2/Flu/RSV plus assay. This is a multiplex, real- time reverse transcriptase PCR assay intended for the qualitative detection of nucleic acid from SARS-CoV-2, influenza A, influenza B, and respiratory syncytial virus. This assay has been cleared by the [place] Food and Drug administration. The performance characteristics have been verified by the [facility]. Results must be considered in the clinical context, and a negative result does not rule out infection. Interpretive Data last revised 2023 Nasopharyngeal 09/14/2024 4: 13 PM ENGAGEMENT LIAISON 09/14/2024 4:19 PM ENGAGEMENT LIAISON Narrative [facility] ([place]) - 09/14/2024 5:01 PM ENGAGEMENT LIAISON Is the Patient experiencing symptoms consistent with COVID?->Yes Dianne Noel MD LAB MICROBIOLOGY - GENERAL ORDERABLES Final Result [facility] ([place]) [address] [facility] Department of Laboratories [place], [place] [id number] * Urinalysis reflex to microscopic and culture Urine (09/14/2024 4:13 PM ENGAGEMENT LIAISON) Color, ur Yellow Yellow Clarity, ur Clear Clear [facility] ([place]) Specific gravity, ur 1.011 1.003 - 1.030 [facility] ([place]) pH, urine 5.5 [facility] ([place]) Comment: Interpretive Data U rine pH is affected by diet, medications, systemic acid-base disturbances, and renal tubular function. pH may affect urinary stone formation. For example, urine pH below 6.0 may help reduce the tendency for calcium phosphate stones and pH greater than 6.0 may reduce the tendency for uric acid stone formation. Source: [facility] Current Interpretive Data was last revised on 2017 Protein, ur ql Negative Negative [facility] ([place]) Glucose, ur ql Negative Negative [facility] [...] for microscopic UA and culture not met. [facility] ([place]) Urine 09/14/2024 4:13 PM ENGAGEMENT LIAISON 09/14/2024 4:19 PM ENGAGEMENT LIAISON us Dianne Noel MD LAB MICROBIOLOGY - GENERAL ORDERABLES Final Result [facility] ([place]) [address] [facility] Department [place] [address] * (ABNORMAL) Drugs of Abuse Screen, Urine without Confirmation (09/14/2024 4:13 PM ENGAGEMENT LIAISON) Amphetamine, ur Not Detected CutOff 500ng/mL Comment: Interpretive Data - Amphetamines: Samples containing greater than 500 ng/mL d-methamphetamine or other cross-reacting amphetamine compounds are reported as positive. Amphetamine immunoassays are subject to significant false positive rates due to cross-reactivity of non-amphetamine drugs. Confirmatory testing required for definitive results. Current Interpretive Data was last reviewed 2023. Barbiturates, ur Not Detected CutOff 200ng/mL [facility] ([place]) Comment: Interpretive Data - Barbiturates: Samples containing greater than 200 ng/mL secobarbital or other cross-reacting barbiturate compounds are reported as positive. False positive and false negative results are possible. Confirmatory testing required for definitive results. Current Interpretive Data was last reviewed 2023. Benzodiazepines, ur Not Detected CutOff 100ng/mL [facility] ([place]) Comment: Interpretive Data - Benzodiazepines: Samples containing greater than 100 ng/mL nordiazepam or other cross-reacting compounds are reported as positive. False positive and false negative results are possible. Confirmatory testing required for definitive results. Current Interpretive Data was last reviewed 2023. Cannabinoids, ur Screen Positive, presumptive (A) CutOff 50 ng/mL [facility] ([place]) Comment: Interpretive Data - Cannabinoids: Samples [...] 2023. Oxycodone, ur Not Detected CutOff 100ng/mL [facility] ([place]) Comment: Interpretive Data - Oxycodone: Samples containing greater than 100 ng/mL oxycodone or other cross-reacting compounds are reported as positive. False positive and false negative results are possible. Confirmatory testing required for definitive results. Current Interpretive Data was last reviewed 2023. Phencyclidine, ur Not Detected CutOff 25 ng/mL [facility] ([place]) Comment: Interpretive Data - Phencyclidine: Samples containing greater than 25 ng/mL phencyclidine or other cross-reacting compounds are reported as positive. False positive and false negative results are possible. Confirmatory testing required for definitive results. Current Interpretive Data was last reviewed 2023. Urine Creatinine 99 mg/dL [facility] ([place]) Comment: Interpretive Data Urine Creatinine: < 10 mg/dL is extremely dilute = or > 10 but < 20 mg/dL is dilute = or > 20 mg/dL is normal Current Interpretive Data was last revised on 2017. Urine 09/14/2024 4:13 PM ENGAGEMENT LIAISON 09/14/2024 4:19 PM ENGAGEMENT LIAISON Narrative [facility] ([place]) - 09/14/2024 4:44 PM ENGAGEMENT LIAISON Drug of Abuse screening is performed by immunoassay for medical purposes only. This is not to be used for Pain Management purposes. us David Sargent MD LAB URINE ORDERABLE S Final Result [facility] ([place]) [address] [facility] Department [place] [address] * eGFR (09/14/2024 1:19 PM ENGAGEMENT LIAISON) eGFR >90 >=60 mL/min/1. 73 m2 Comment: [...] last reviewed 2021. Blood 09/14/2024 1:19 PM ENGAGEMENT LIAISON 09/14/2024 1:22 PM ENGAGEMENT LIAISON us David Sargent MD LAB BLOOD ORDERABLE S Final Result [facility] [address] [facility] Department [place] [address] * Differential, auto (09/14/2024 1:19 PM ENGAGEMENT LIAISON) Neutrophil abs 2.6 1.5 - 6.5 K/cumm Imm gran abs 0.0 0.0 - 0.1 K/cumm [facility] ([place]) Lymphocyte abs 2.2 0.8 - 3.3 K/cumm [facility] ([place]) Monocyte abs 0.3 0.2 - 0.8 K/cumm [facility] ([place]) Eosinophil abs 0.2 0.0 - 0.5 K/cumm [facility] ([place]) Basophil abs 0.1 0.0 - 0.1 K/cumm [facility] ([place]) Neutrophil pct 47.9 % [facility] ([place]) Comment: Interpretive Data Percent cell count reference ranges are not reported, since discordance with absolute values may lead to misinterpretation of CBC data. Current Interpretive Data was last revised on 2017. Imm gran pct 0.2 % [facility] ([place]) Comment: Interpretive Data [...] 2017. Monocyte pct 5.7 % [facility] ([place]) Comment: Interpretive Data Percent cell count reference ranges are not reported, since discordance with absolute values may lead to misinterpretation of CBC data. Current Interpretive Data was last revised on 2017. Eosinophil pct 3.9 % [facility] ([place]) Comment: Interpretive [...] revised on 2017. Blood 09/14/2024 1:19 PM ENGAGEMENT LIAISON 09/14/2024 1:22 PM ENGAGEMENT LIAISON us David Sargent MD LAB BLOOD ORDERABLE S Final Result [facility] ([place]) [address] [facility] Department [place] [address] * CBC with auto differential (09/14/2024 1:19 PM ENGAGEMENT LIAISON) WBC 5.4 3.8 - 9.9 K/cumm Hgb [...] ([place]) MCHC 34.5 32.3 - 35.7 g/dL [facility] ([place]) RDW CV 13.2 11.1 - 14.9 % [facility] ([place]) RDW SD 43.6 35.7 - 48.1 fL [facility] ([place]) NRBC abs 0.00 0.00 - 0.01 K/cumm [facility] ([place]) Blood 09/14/2024 1:19 PM ENGAGEMENT LIAISON 09/14/2024 1:22 PM ENGAGEMENT LIAISON us David Sargent MD LAB BLOOD ORDERABLE S Final Result Performing Organization Address City/[facility] Co de Phone Number [facility] ([place]) 1 [facility] [place] [address] * Lipase (09/14/2024 1:19 PM ENGAGEMENT LIAISON) Lipase 18 10 - 99 Units/L Blood 09/14/2024 1:19 PM ENGAGEMENT LIAISON 09/14/2024 4:09 PM ENGAGEMENT LIAISON Dianne Noel MD LAB BLOOD ORDERABLE S Final Result Performing Organization Address [facility] de Phone Number [facility] ([place]) 1 [facility] [place] [address] * (ABNORMAL) Ethanol (09/14/2024 1:19 PM ENGAGEMENT LIAISON) Ethanol 121(H) <=10 mg/dL Comment: Interpretive Data Legal limit of intoxication > or = 80 mg/dL Levels > or = 400 mg/dL are potentially TOXIC. Current interpretive data was last revised on 2018. Blood 09/14/2024 1:19 PM ENGAGEMENT LIAISON 09/14/2024 1:22 PM ENGAGEMENT LIAISON David Sargent MD LAB BLOOD ORDERABLE S Final Result Performing Organization Address [facility] Co de Phone Number [facility] ([place]) [address] Department [place] [address] * (ABNORMAL) Comprehensive metabolic panel (09/14/2024 1:19 PM ENGAGEMENT LIAISON) Sodium 137 135 - 145 mmol/L Potassium, pl 3.4 3.3 - 4.9 mmol/L [facility] ([place]) Chloride 102 97 - 110 mmol/L [facility] ([place]) CO2 21(L) 22 - 32 mmol/L [facility] ([place]) Anion gap 13 2 - 15 mmol/L [facility] ([place]) BUN 9 6 - 25 mg/dL [facility] ([place]) Creatinine 1.02 0.80 - 1.30 mg/dL [facility] ([place]) Glucose 147 70 - 199 mg/dL [facility] ([place]) Comment: Interpretive Data Fasting glucose >/= [...] [facility] ([place]) Blood 09/14/2024 1:19 PM ENGAGEMENT LIAISON 09/14/2024 1:22 PM ENGAGEMENT LIAISON us David Sargent MD LAB BLOOD ORDERABLE S Final Result [facility] ([place]) [address] [facility] Department [place] [address] from Last 3 Months Insurance [employer] [place] [place] Advance Directives For more information, please contact: [phone] * Full Code (Latest Code Status on File) Date Activated Date Inactivated Comments 10/09/2024 12:43 PM 10/11/2024 1:46 PM * Full Code Date Activated Date Inactivated Comments 07/02/2024 2:00 PM 07/04/2024 7:55 PM * Full Code Date Activated Date Inactivated Comments 05/02/2024 2:34 PM 05/04/2024 5:37 PM Care Teams 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
[2024-10-14 13:15] VITALS: BP 137/91; PULSE 97; RESP 20; TEMP 36.5; O2SAT 99
--- OUTSIDE RECORDS SUMMARY | 2024-10-14 14:18 | XMS_ITS | Continuity of Care Document ---
Author Organization [facility] Address [address] [place] [address] Phone Care Team Providers Care Quill Worker Name Role Phone Gerardo Banda Unavailable Unavailable [...] Diagnoses Date Provider Providers Copied on Encounter [facility], [address] [place] [address], [id number], tel:[phone] [facility] No Information 1 Maurizio Carrillo. [address] [place], [place], [id number] , [place]. tel:[phone] Referring Provider: Beny Morley, [address] [place], [address]. tel:[phone] [facility], [address] [place] [address], [id number], tel:[phone] [facility] No Information 1 Jaleel Burroughs. [address] [place], [place], [id number] , . tel:[phone] Referring Provider: Beny Morley, [address] [place], [address]. tel:[phone] [facility], [address] [place] [address], [id number], tel:[phone] [facility] No Information 1 Maurizio aCrrillo. [address] [place] [address], [id number] , . tel:[phone] Referring Provider: Beny Morley, [address] [place], [address]. tel:[phone] [facility], [address] [place] [address], [id number], tel:[phone] [facility] No Information 1 Jaleel Burroughs. [address] [place] [address], [id number] , . tel:[phone] Referring Provider: Manjeet Winter, [address] [place], [address] . tel:[phone] Family History Family Member Type Diagnosis Age At Onset No Information Payers Payer name Insurance type Covered democrat ID Rafael allison(s) MANNY Student Health Insurance CI [id number] Social History Type Description Quantity Date Captured [...]
--- OUTSIDE RECORDS SUMMARY | 2024-10-14 14:18 | XMS_ITS | Referral Summary ---
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 Name Role Phone Candelario Diamond MD Primary Care Provider Encounters Date Type Department Care Team Description 10/08/2024 10:41 PM COLOR CHECKER - 10/11/2024 9:40 AM COLOR CHECKER Hospital Encounter [address] [address] Cheng Hodgson MD Quaizar, Huzaifa, MD Sajjad, Sohaib, MD Alcohol withdrawal syndrome without complication (HCC) (Primary Dx) Discharge Disposition: Discharge to other rehab with plan readmit 09/14/2024 Documentation [facility] [address] [place], [place] [phone] Shwetha Sandoval 09/14/2024 3:50 PM COLOR CHECKER - 09/14/2024 6:21 PM COLOR CHECKER Emergency [facility] Emergency Department [address] [place] [address] Dianne Noel MD Alcohol abuse (Primary Dx) Discharge Disposition: Discharge to home or self care 09/10/2024 [facility] Initial Eligibility [facility] [address] [place], [place] [phone] Jose Almonte 08/30/2024 Telephone [facility] [address] [place], [place] [phone] Shwetha Sandoval from Last 3 Months Allergies [...] to Q uit: No; Counseling Given: Yes [facility] Utilities Answer Date Recorded In the past 12 months has th e [employer], gas, oil, or water [employer] threatened to shut off services in your home? No 10/09/2024 Social Connection and Isolation Panel [NHANES] A nswer Date Recorded In a typical week, how many times do you talk on the phone with family, friends, or neighbors? Three times a week 10/09/2024 How often do you get togethe r with friends or relatives? Twice a week 10/09/2024 How often do you attend [facility] or jew services? Never 10/09/2024 Do you belong to any clubs o r organizations such as confucianist groups, unions, fraternal or athletic groups, or [...] any time in the past 12 m [facility], were you homeless or living in a fci (including now)? No 10/09/2024 Personal Safety Answer Date Recorded Have you ever been in or are you currently in a harmful physical or emotional relationship or is someone making you feel afraid or unsafe? Denies 10/08/2024 Sex and Gender Information Value Date Recorded Sex Assigned at Not on file Legal Sex Male 11:16 PM COLOR CHECKER Gender Identity Not on file Sexual Orientation Not on file Last Filed Vital Signs Vital Sign Reading Time Taken Comments Blood Pressure 158/88 10/11/2024 8:20 AM COLOR CHECKER Pulse 59 10/11/2024 8:20 AM COLOR CHECKER Temperature 36.7 C (98.1 F) 10/11/2024 8:20 AM COLOR CHECKER Respiratory Rate 16 10/11/2024 8:30 AM COLOR CHECKER Oxygen Saturation 100% 10/11/2024 8:20 AM COLOR CHECKER Inhaled Oxygen Concentration - - Weight 67.1 kg (147 lb 14.9 oz) 025 10:03 AM COLOR CHECKER Height 177.8 cm (5' 10 ) 10/09/2024 10: 03 AM COLOR CHECKER Body Mass Index 21.23 10/09/2024 10:03 AM COLOR CHECKER Plan of Treatment Not on file Procedures Procedure Name Priority Date/Time Associated Diagnosis Comments EGFR Routine 10/10/2024 5:50 AM COLOR CHECKER DIFFERENTIAL AUTO Routine 10/10/2024 5:5 0 AM COLOR CHECKER CBC WITH AUTO DIFFERENTIAL Routine 10/10/2024 5:50 AM COLOR CHECKER COMPREHENSIVE METABOLIC PANEL Routine 10/10/2024 5:50 AM COLOR CHECKER DRUGS OF ABUSE SCREEN, URINE WITHOUT CONFIRMATION STAT 10/08/2024 4:38 PM COLOR CHECKER URINALYSIS AND REFLEX TO MICROSCOPIC AND CULTURE STAT 10/08/2024 4:38 PM COLOR CHECKER EGFR STAT 10/08/2024 4:37 PM COLOR CHECKER DIFFERENTIAL AUTO STAT 10/08/2024 4:3 7 PM COLOR CHECKER PHOSPHORUS STAT 10/08/2024 4:37 PM COLOR CHECKER MAGNESIUM STAT 10/08/2024 4:37 PM COLOR CHECKER ETHANOL STAT 10/08/2024 4:37 PM COLOR CHECKER COMPREHENSIVE METABOLIC PANEL STAT 10/08/2024 4:37 PM COLOR CHECKER CBC WITH AUTO DIFFERENTIAL STAT 10/08/2024 4:37 PM COLOR CHECKER INFLUENZA A/B, RSV, AND COVID-19 PCR STAT 10/08/2024 4:37 PM COLOR CHECKER XR CHEST 1 VIEW ED 09/14/2024 5:00 PM COLOR CHECKER DRUGS OF ABUSE SCREEN, URINE WITHOUT CONFIRMATION STAT 09/14/2024 4:13 PM COLOR CHECKER INFLUENZA A/B, RSV, AND COVID-19 PCR Routine 09/14/2024 4:13 PM COLOR CHECKER URINALYSIS AND REFLEX TO MICROSCOPIC AND CULTURE STAT 09/14/2024 4:13 PM COLOR CHECKER LIPASE STAT 09/14/2024 1:19 PM COLOR CHECKER EGFR STAT 09/14/2024 1:19 PM COLOR CHECKER DIFFERENTIAL AUTO STAT 09/14/2024 1:1 9 PM COLOR CHECKER ETHANOL STAT 09/14/2024 1:19 PM COLOR CHECKER COMPREHENSIVE METABOLIC PANEL STAT 09/14/2024 1:19 PM COLOR CHECKER CBC WITH AUTO DIFFERENTIAL STAT 09/14/2024 1:19 PM COLOR CHECKER from Last 3 Months Results * eGFR (10/10/2024 5:50 AM COLOR CHECKER) eGFR >90 >=60 mL/min/1. 73 m2 Comment: [...] last reviewed 2021. Blood 10/10/2024 5:50 AM COLOR CHECKER 10/10/2024 6:00 AM COLOR CHECKER us Cheng Hodgson MD LAB BLOOD ORDERABLES Final Result [id number] [address] [facility] Department [place] [address] * Differential, auto (10/10/2024 5:50 AM COLOR CHECKER) Pathologist [facility] Neutrophil abs 5.3 1.5 - 6.5 K/cumm Imm gran abs 0.0 0.0 - 0.1 K/cumm [facility] Lymphocyte abs 2.3 0.8 - 3.3 K/cumm [facility] Monocyte abs 0.6 0.2 - 0.8 K/cumm [facility] Eosinophil abs 0.3 0.0 - 0.5 K/cumm [facility] Basophil abs 0.1 0.0 - 0.1 K/cumm [facility] Neutrophil pct 62.5 % [facility] Comment: Interpretive Data Percent cell count reference ranges are not reported, since discordance with absolute values may lead to misinterpretation of CBC data. Current Interpretive Data was last revised on 2017. Imm gran pct 0.2 % [facility] Comment: Interpretive Data Percent cell count reference ranges are not reported, since discordance with absolute values may lead to misinterpretation of CBC data. Current Interpretive Data was last revised on 2017. Lymphocyte pct 26.6 % [facility] Comment: Interpretive Data Percent cell count reference ranges are not reported, since discordance with absolute values may lead to misinterpretation of CBC data. Current Interpretive Data was last revised on 2017. Monocyte pct 6.7 % [facility] Comment: Interpretive Data Percent cell count reference ranges are not reported, since discordance with absolute values may lead to misinterpretation of CBC data. Current Interpretive Data was last revised on 2017. Eosinophil pct 3.4 % [facility] Comment: Interpretive Data Percent cell count reference ranges are not reported, since discordance with absolute values may lead to misinterpretation of CBC data. Current Interpretive Data was last revised on 2017. Basophil pct 0.6 % [facility] Comment: Interpretive Data Percent cell count reference ranges are not reported, since discordance with absolute values may lead to misinterpretation of CBC data. Current Interpretive Data was last revised on 2017. Blood 10/10/2024 5:50 AM COLOR CHECKER 10/10/2024 6:00 AM COLOR CHECKER Cheng Hodgson MD LAB BLOOD ORDERABLES Final Result [address] [place] [address] * CBC with auto differential (10/10/2024 5:50 AM COLOR CHECKER) [facility] WBC 8.5 3.8 - 9.9 K/cumm Hgb 14.9 13.0 - 17.5 g/dL [facility] Hct 44.0 38.9 - 50.3 % [facility] Plt 188 150 - 400 K/cumm [facility] MPV 11.6 9.1 - 12.3 fL [facility] RBC 4.78 4.30 - 5.80 M/cumm [facility] MCV 92.1 81.3 - 96.4 fL [facility] MCH 31.2 27.1 - 33.3 pg [facility] MCHC 33.9 32.3 - 35.7 g/dL [facility] RDW CV 13.2 11.1 - 14.9 % [facility] RDW SD 44.5 35.7 - 48.1 fL [facility] NRBC abs 0.00 0.00 - 0.01 K/cumm [facility] Blood 10/10/2024 5:50 AM COLOR CHECKER 10/10/2024 6:00 AM COLOR CHECKER Cheng Hodgson MD LAB BLOOD ORDERABLES Final Result Performing Organization Address City/[facility]/ZIP Co de Phone Number [address] [place] [employer] [place] [address] * (ABNORMAL) Comprehensive metabolic panel (10/10/2024 5:50 AM COLOR CHECKER) [facility] Sodium 138 135 - 145 mmol/L Potassium, pl 3.6 3.3 - 4.9 mmol/L [facility] Chloride 106 97 - 110 mmol/L [facility] CO2 21(L) 22 - 32 mmol/L [facility] Anion gap 11 2 - 15 mmol/L [facility] BUN 14 6 - 25 mg/dL [facility] Creatinine 1.02 0.80 - 1.30 mg/dL [facility] Glucose 131 70 - 199 mg/dL [facility] Comment: Interpretive Data Fasting glucose >/= [...] 2022. Calcium 9.6 8.5 - 10.3 mg/dL [facility] Bilirubin, total 0.6 0.1 - 1.2 mg/dL [facility] Protein, pl 7.6 6.5 - 8.5 g/dL [facility] Albumin 4.4 3.5 - 5.0 g/dL [facility] Alk phos 91 40 - 130 Units/L [facility] ALT 24 7 - 55 Units/L [facility] AST 25 10 - 50 Units/L [facility] Blood 10/10/2024 5:50 AM COLOR CHECKER 10/10/2024 6:00 AM COLOR CHECKER Cheng Hodgson MD LAB BLOOD ORDERABLES Final Result [facility] [address] [facility] Department [place] [address] * Urinalysis reflex to microscopic and culture Urine (10/08/2024 4:38 PM COLOR CHECKER) Color, ur Yellow Yellow Clarity, ur Clear Clear [facility] Specific gravity, ur 1.019 1.003 - 1.030 [facility] pH, urine 5.5 [facility] Comment: Interpretive Data U rine pH is affected by diet, medications, systemic acid-base disturbances, and renal tubular function. pH may affect urinary stone formation. For example, urine pH below 6.0 may help reduce the tendency for calcium phosphate stones and pH greater than 6.0 may reduce the tendency for uric acid stone formation. Source: [facility] [employer] Current Interpretive Data was last revised on 2017 Protein, ur ql Negative Negative [facility] Glucose, ur ql Negative Negative [facility] Ketones, ur Negative Negative [facility] Bilirubin, ur Negative Negative [facility] Blood, ur Negative Negative [facility] Urobilinogen, ur <2.0 <2.0 mg/dL [facility] Nitrite, ur Negative Negative [facility] Leukocyte esterase, ur Negative Negative [facility] UA reflex comment Reflex conditions for microscopic UA and culture not met. [facility] Urine 10/08/2024 4:38 PM COLOR CHECKER 10/08/2024 4:41 PM COLOR CHECKER us Lucinda ELIZABETH LAB MICROBIOLOGY - GENERAL O RDERABLES Final Result [facility] [address] [facility] Department [place] [address] * (ABNORMAL) Drugs of Abuse Screen, Urine without Confirmation (10/08/2024 4:38 PM COLOR CHECKER) Pathologist [facility] Amphetamine, ur Not Detected CutOff 500ng/mL Comment: Interpretive Data - Amphetamines: Samples containing greater than 500 ng/mL d-methamphetamine or other cross-reacting amphetamine compounds are reported as positive. Amphetamine immunoassays are subject to significant false positive rates due to cross-reactivity of non-amphetamine drugs. Confirmatory testing required for definitive results. Current Interpretive Data was last reviewed 2023. Barbiturates, ur Not Detected CutOff 200ng/mL [facility] Comment: Interpretive Data - Barbiturates: Samples containing greater than 200 ng/mL secobarbital or other cross-reacting barbiturate compounds are reported as positive. False positive and false negative results are possible. Confirmatory testing required for definitive results. Current Interpretive Data was last reviewed 2023. Benzodiazepines, ur Not Detected CutOff 100ng/mL [facility] Comment: Interpretive Data - Benzodiazepines: Samples containing greater than 100 ng/mL nordiazepam or other cross-reacting compounds are reported as positive. False positive and false negative results are possible. Confirmatory testing required for definitive results. Current Interpretive Data was last reviewed 2023. Cannabinoids, ur Screen Positive, presumptive (A) CutOff 50 ng/mL [facility] Comment: Interpretive Data - Cannabinoids: Samples containing greater than 50 ng/mL delta-9 THC -COOH or other cross- reacting compounds are reported as positive. False positive and false negative results are possible. Confirmatory testing required for definitive results. Current Interpretive Data was last reviewed 2023. Cocaine, ur Not Detected CutOff 150ng/mL [facility] Comment: Interpretive Data - Cocaine: Samples containing greater than 150 ng/mL benzoylecgonine or other cross- reacting compounds are reported as positive. False positive and false negative results are possible. Confirmatory testing required for definitive results. Current Interpretive Data was last reviewed 2023. Fentanyl, Ur Not Detected CutOff 5 ng/mL [facility] Comment: Interpretive Data - Fentanyl: Samples containing greater than 5 ng/mL norfentanyl, fentanyl, or other cross-reacting fentanyl compounds are reported as positive. False positive and false negative results are possible. Confirmatory testing required for definitive results. Current Interpretive Data was last reviewed 2023. Methadone, ur Not Detected CutOff 300ng/mL [facility] Comment: Interpretive Data - Methadone: Samples containing greater than 300 ng/mL d,l-methadone or other cross-reacting compounds are reported as positive. False positive and false negative results are possible. Confirmatory testing required for definitive results. Current Interpretive Data was last reviewed 2023. Opiates, ur Not Detected CutOff 300ng/mL [facility] Comment: Interpretive Data - Opiates: Samples containing greater than 300 ng/mL morphine or other cross-reacting compounds are reported as positive. False positive and false negative results are possible. Confirmatory testing required for definitive results. Current Interpretive Data was last reviewed 2023. Oxycodone, ur Not Detected CutOff 100ng/mL [facility] Comment: Interpretive Data - Oxycodone: Samples containing greater than 100 ng/mL oxycodone or other cross-reacting compounds are reported as positive. False positive and false negative results are possible. Confirmatory testing required for definitive results. Current Interpretive Data was last reviewed 2023. Phencyclidine, ur Not Detected CutOff 25 ng/mL [facility] Comment: Interpretive Data - Phencyclidine: Samples [...] revised on 2017. Urine 10/08/2024 4:38 PM COLOR CHECKER 10/08/2024 4:41 PM COLOR CHECKER Narrative PAULA - 10/08/2024 5:07 PM COLOR CHECKER Drug of Abuse screening is performed by immunoassay for medical purposes only. This is not to be used for Pain Management purposes. us Lucinda ELIZABETH LAB URINE ORDERABLES Final R esult [facility]ULA [address] [facility] Department [place] [address] * Influenza A/B, RSV, and COVID-19 PCR Nasopharyngeal (10/08/2024 4:37 PM COLOR CHECKER) COVID-19 RNA Negative Negative Influenza A RNA Negative Negative [facility] Influenza B RNA Negative Negative [facility] RSV RNA Negative Negative [facility] Comment: Interpretive data: Testing performed by [facility]. This test is performed using the VivaRay Xpert Xpress CoV-2/Flu/RSV plus assay. This is a multiplex, real-time reverse transcriptase PCR assay intended for the qualitative detection of nucleic acid from SARS-CoV-2, influenza A, influenza B, and respiratory syncytial virus. This assay has been cleared by the [place] Food and Drug administration. The performance characteristics have been verified by the [facility]. Results must be considered in the clinical context, and a negative result does not rule out infection. Interpretive Data last revised 2023 Nasopharyngeal 10/08/2024 4: 37 PM COLOR CHECKER 10/08/2024 4:41 PM COLOR CHECKER Narrative PAULA - 10/08/2024 5:29 PM COLOR CHECKER Is the Patient experiencing symptoms consistent with COVID?->Yes us Lucinda ELIZABETH LAB MICROBIOLOGY - GENERAL O RDERABLES Final Result Performing Organization Address City/[facility]/ZIP Co de Phone Number PAULA [address] [place] [address] * eGFR (10/08/2024 4:37 PM COLOR CHECKER) Pathologist [facility] eGFR >90 >=60 mL/min/1. 73 m2 Comment: [...] last reviewed 2021. Blood 10/08/2024 4:37 PM COLOR CHECKER 10/08/2024 4:41 PM COLOR CHECKER us Lucinda ELIZABETH LAB BLOOD ORDERABLES Final R esult Performing Organization Address City/[facility]/ZIP Co de Phone Number PAULA [address] Department [place] [address] * Differential, auto (10/08/2024 4:37 PM COLOR CHECKER) Pathologist [facility] Neutrophil abs 4.8 1.5 - 6.5 K/cumm Imm gran abs 0.1 0.0 - 0.1 K/cumm [facility] Lymphocyte abs 2.0 0.8 - 3.3 K/cumm [facility] Monocyte abs 0.4 0.2 - 0.8 K/cumm [facility] Eosinophil abs 0.2 0.0 - 0.5 K/cumm [facility] Basophil abs 0.1 0.0 - 0.1 K/cumm [facility] Neutrophil pct 64.4 % [facility] Comment: Interpretive Data Percent cell count reference ranges are not reported, since discordance with absolute values may lead to misinterpretation of CBC data. Current Interpretive Data was last revised on 2017. Imm gran pct 0.7 % [facility] Comment: Interpretive Data Percent cell count reference ranges are not reported, since discordance with absolute values may lead to misinterpretation of CBC data. Current Interpretive Data was last revised on 2017. Lymphocyte pct 26.2 % [facility] Comment: Interpretive Data Percent cell count reference ranges are not reported, since discordance with absolute values may lead to misinterpretation of CBC data. Current Interpretive Data was last revised on 2017. Monocyte pct 5.7 % [facility] Comment: Interpretive Data Percent cell count reference ranges are not reported, since discordance with absolute values may lead to misinterpretation of CBC data. Current Interpretive Data was last revised on 2017. Eosinophil pct 2.1 % [facility] Comment: Interpretive Data Percent cell count reference ranges are not reported, since discordance with absolute values may lead to misinterpretation of CBC data. Current Interpretive Data was last revised on 2017. Basophil pct 0.9 % [facility] Comment: Interpretive Data Percent cell count reference ranges are not reported, since discordance with absolute values may lead to misinterpretation of CBC data. Current Interpretive Data was last revised on 2017. Blood 10/08/2024 4:37 PM COLOR CHECKER 10/08/2024 4:41 PM COLOR CHECKER us Lucinda ELIZABETH LAB BLOOD ORDERABLES Final R [facility]ult [facility] [address] [facility] Department [place] [address] * CBC with auto differential (10/08/2024 4:37 PM COLOR CHECKER) WBC 7.5 3.8 - 9.9 K/cumm Hgb 15.8 13.0 - 17.5 g/dL [facility] Hct 45.7 38.9 - 50.3 % [facility] Plt 227 150 - 400 K/cumm [facility] MPV 11.6 9.1 - 12.3 fL [facility] RBC 5.09 4.30 - 5.80 M/cumm [facility] MCV 89.8 81.3 - 96.4 fL [facility] MCH 31.0 27.1 - 33.3 pg [facility] MCHC 34.6 32.3 - 35.7 g/dL [facility] RDW CV 13.1 11.1 - 14.9 % [facility] RDW SD 43.1 35.7 - 48.1 fL [facility] NRBC abs 0.00 0.00 - 0.01 K/cumm [facility] Blood 10/08/2024 4:37 PM COLOR CHECKER 10/08/2024 4:41 PM COLOR CHECKER Lucinda ELIZABETH LAB BLOOD ORDERABLES Final R esult Performing Organization Address City/[facility]/ZIP Co de Phone Number [address] [place] [address] * (ABNORMAL) Phosphorus (10/08/2024 4:37 PM COLOR CHECKER) Pathologist [facility] Phosphorus, pl 2.1(L) 2.3 - 4.5 mg/dL Blood 10/08/2024 4:37 PM COLOR CHECKER 10/08/2024 4:41 PM COLOR CHECKER Lucinda ELIZABETH LAB BLOOD ORDERABLES Final R esult Performing Organization Address City/State/[facility] Co de Phone Number [address] [place] [address] * Magnesium (10/08/2024 4:37 PM COLOR CHECKER) Pathologist [facility] Magnesium 2.2 1.4 - 2.5 mg/dL Blood 10/08/2024 4:37 PM COLOR CHECKER 10/08/2024 4:41 PM COLOR CHECKER Lucinda ELIZABETH LAB BLOOD ORDERABLES Final R esult Performing Organization Address [facility] de Phone Number [address] [address] * (ABNORMAL) Ethanol (10/08/2024 4:37 PM COLOR CHECKER) Pathologist [facility] Ethanol 42(H) <=10 mg/dL Comment: Interpretive Data Legal limit of intoxication > or = 80 mg/dL Levels > or = 400 mg/dL are potentially TOXIC. Current interpretive data was last revised on 2018. Blood 10/08/2024 4:37 PM COLOR CHECKER 10/08/2024 4:41 PM COLOR CHECKER Lucinda ELIZABETH LAB BLOOD ORDERABLES [facility] Performing Organization Address [facility] de Phone Number [address] [address] * Comprehensive metabolic panel (10/08/2024 4:37 PM COLOR CHECKER) [facility] Sodium 139 135 - 145 mmol/L Potassium, pl 3.8 3.3 - 4.9 mmol/L [facility] Comment:Hemolyzed; Potassium value may be falsely elevated by as much as 1.0 mmol/L. Suggest redraw and reanalysis. Chloride 101 97 - 110 mmol/L [facility] CO2 24 22 - 32 mmol/L [facility] Anion gap 14 2 - 15 mmol/L [facility] BUN 11 6 - 25 mg/dL [facility] Creatinine 1.03 0.80 - 1.30 mg/dL [facility] Glucose 111 70 - 199 mg/dL [facility] Comment: Interpretive Data Fasting glucose >/= [...] 2022. Calcium 9.8 8.5 - 10.3 mg/dL [facility] Bilirubin, total 0.5 0.1 - 1.2 mg/dL [facility] Protein, pl 8.2 6.5 - 8.5 g/dL [facility] Albumin 4.7 3.5 - 5.0 g/dL [facility] Alk phos 94 40 - 130 Units/L [facility] ALT 30 7 - 55 Units/L [facility] AST See Comment 10 - 50 [facility] Comment:Credited; Hemolyzed Specimen Blood 10/08/2024 4:37 PM COLOR CHECKER 10/08/2024 4:41 PM COLOR CHECKER us Lucinda ELIZABETH LAB BLOOD ORDERABLES Final R esult PAULA [address] [facility] Department [place] [address] * XR Chest 1 Vw Portable (09/14/2024 5:00 PM COLOR CHECKER) Anatomical Region Laterality Modality Body, Chest N/A Computed Radiogr aphy 09/14/2024 5:43 PM COLOR CHECKER Narrative 09/14/2024 5:44 PM COLOR CHECKER EXAM DESCRIPTION: XR CHEST 1 VIEW REASON [...] signed by Candelario RODRIGUEZ: MICHAEL Report ID: [id number] Reading Location: [id number] Procedure Note Candelario Ponce MD - 09/14/2024 [...] Candelario Ponce M.D. KH: MICHAEL Report ID: [id number] Reading Location: [id number] Dianne Noel MD IMG XR PROCEDURES F inal Result * Influenza A/B, RSV, and COVID-19 PCR Nasopharyngeal (09/14/2024 4:13 PM COLOR CHECKER) COVID-19 RNA Negative Negative Influenza A RNA Negative Negative [facility] ([facility]) Influenza B RNA Negative Negative [facility] ([facility]) RSV RNA Negative Negative [facility] ([facility]) Comment: Interpretive data: Testing performed by [facility]. This test is performed using the VivaRay Xpert Xpress CoV-2/Flu/RSV plus assay. This is a multiplex, real- time reverse transcriptase PCR assay intended for the qualitative detection of nucleic acid from SARS-CoV-2, influenza A, influenza B, and respiratory syncytial virus. This assay has been cleared by the [place] Food and Drug administration. The performance characteristics have been verified by the [facility]. Results must be considered in the clinical context, and a negative result does not rule out infection. Interpretive Data last revised 2023 Nasopharyngeal 09/14/2024 4: 13 PM COLOR CHECKER 09/14/2024 4:19 PM COLOR CHECKER Narrative [facility] ([place]) - 09/14/2024 5:01 PM COLOR CHECKER Is the Patient experiencing symptoms consistent with COVID?->Yes us Dianne Noel MD LAB MICROBIOLOGY - GENERAL ORDERABLES Final Result [facility] ([place]) 1 [facility] Department [place] [address] * Urinalysis reflex to microscopic and culture Urine (09/14/2024 4:13 PM COLOR CHECKER) Color, ur Yellow Yellow Clarity, ur Clear Clear [facility] ([place]) Specific gravity, ur 1.011 1.003 - 1.030 [facility] ([place]) pH, urine 5.5 [facility] ([facility] Comment: Interpretive Data U rine pH is affected by diet, medications, systemic acid-base disturbances, and renal tubular function. pH may affect urinary stone formation. For example, urine pH below 6.0 may help reduce the tendency for calcium phosphate stones and pH greater than 6.0 may reduce the tendency for uric acid stone formation. Source: [facility] [employer] Current Interpretive Data was last revised on 2017 Protein, ur ql Negative Negative [facility] ([place]) Glucose, ur ql Negative Negative [facility] ([place]) Ketones, ur Negative Negative [facility] ([place]) Bilirubin, ur Negative Negative [facility] ([place]) Blood, ur Negative Negative [facility] ([place]) Urobilinogen, ur <2.0 <2.0 mg/dL [facility] ([place]) Nitrite, ur Negative Negative [facility] ([place]) Leukocyte esterase, ur Negative Negative [facility] ([place]) UA reflex comment Reflex conditions for microscopic UA and culture not met. [facility] ([place]) Urine 09/14/2024 4:13 PM COLOR CHECKER 09/14/2024 4:19 PM COLOR CHECKER Dianne Noel MD LAB MICROBIOLOGY - GENERAL ORDERABLES Final Result [facility] ([place]) 1 [facility] Department [place] [address] * (ABNORMAL) Drugs of Abuse Screen, Urine without Confirmation (09/14/2024 4:13 PM COLOR CHECKER) Amphetamine, ur Not Detected CutOff 500ng/mL Comment: [...] revised on 2017. Urine 09/14/2024 4:13 PM COLOR CHECKER 09/14/2024 4:19 PM COLOR CHECKER Narrative [facility] ([place]) - 09/14/2024 4:44 PM COLOR CHECKER Drug of Abuse screening is performed by immunoassay for medical purposes only. This is not to be used for Pain Management purposes. us David Sargent MD LAB URINE ORDERABLE S Final Result [facility] ([place]) 1 [facility] Department [place] [address] * eGFR (09/14/2024 1:19 PM COLOR CHECKER) eGFR >90 >=60 mL/min/1. 73 m2 Comment: [...] last reviewed 2021. Blood 09/14/2024 1:19 PM COLOR CHECKER 09/14/2024 1:22 PM COLOR CHECKER us David Sargent MD LAB BLOOD ORDERABLE S Final Result [facility] ([place]) 1 [facility] Department [place] [address] * Differential, auto (09/14/2024 1:19 PM COLOR CHECKER) Neutrophil abs 2.6 1.5 - 6.5 K/cumm [...] Neutrophil pct 47.9 % [facility] ([place]) Comment: Interpretive Data Percent cell count reference ranges are not reported, since discordance with absolute values may lead to misinterpretation of CBC data. Current Interpretive Data was last revised on 2017. Imm gran pct 0.2 % [facility] ([place]) Comment: Interpretive Data Percent cell count reference [...] 2017. Monocyte pct 5.7 % [facility] ([place]) Comment: Interpretive Data Percent cell count reference ranges are not reported, since discordance with absolute values may lead to misinterpretation of CBC data. Current Interpretive Data was last revised on 2017. Eosinophil pct 3.9 % [facility] ([place]) Comment: Interpretive Data Percent cell count reference [...] revised on 2017. Blood 09/14/2024 1:19 PM COLOR CHECKER 09/14/2024 1:22 PM COLOR CHECKER us David Sargent MD LAB BLOOD ORDERABLE S Final Result [facility] ([place]) 1 [facility] [place] [address] * CBC with auto differential (09/14/2024 1:19 PM COLOR CHECKER) WBC 5.4 3.8 - 9.9 K/cumm Hgb [...] [facility] ([place]) Blood 09/14/2024 1:19 PM COLOR CHECKER 09/14/2024 1:22 PM COLOR CHECKER us David Sargent MD LAB BLOOD ORDERABLE S Final Result [facility] ([place]) 1 [facility] [place] [address] * Lipase (09/14/2024 1:19 PM COLOR CHECKER) Lipase 18 10 - 99 Units/L Blood 09/14/2024 1:19 PM COLOR CHECKER 09/14/2024 4:09 PM COLOR CHECKER us Dianne Noel MD LAB BLOOD ORDERABLE S Final Result [facility] ([place]) 1 [facility] [place] [address] * (ABNORMAL) Ethanol (09/14/2024 1:19 PM COLOR CHECKER) Ethanol 121(H) <=10 mg/dL Comment: Interpretive Data Legal limit of intoxication > or = 80 mg/dL Levels > or = 400 mg/dL are potentially TOXIC. Current interpretive data was last revised on 2018. Blood 09/14/2024 1:19 PM COLOR CHECKER 09/14/2024 1:22 PM COLOR CHECKER us David Sargent MD LAB BLOOD ORDERABLE S Final Result [facility] ([place]) 1 [facility] [place] [employer] [place] [address] * (ABNORMAL) Comprehensive metabolic panel (09/14/2024 1:19 PM COLOR CHECKER) Sodium 137 135 - 145 mmol/L Potassium, pl 3.4 3.3 - 4.9 mmol/L [facility] ([place]) Chloride 102 97 - 110 mmol/L [facility] ([place]) CO2 21(L) 22 - 32 mmol/L [facility] ([place]) Anion gap 13 2 - 15 mmol/L [facility] ([place]) BUN 9 6 - 25 mg/dL [facility] ([place]) Creatinine 1.02 0.80 - 1.30 mg/dL [facility] ([place]) Glucose 147 70 - 199 mg/dL [facility] ([place]) Comment: Interpretive Data Fasting glucose >/= [...] [facility] ([place]) Blood 09/14/2024 1:19 PM COLOR CHECKER 09/14/2024 1:22 PM COLOR CHECKER us David Sargent MD LAB BLOOD ORDERABLE S Final Result [facility] ([place]) 1 [facility] Department [place] [address] from Last 3 Months Insurance [employer] [facility] Advance Directives For more information, please contact: [phone] * Full Code (Latest Code Status on File) Date Activated Date Inactivated Comments 10/09/2024 12:43 PM 10/11/2024 1:46 PM * Full Code Date Activated Date Inactivated Comments 07/02/2024 2:00 PM 07/04/2024 7:55 PM * Full Code Date Activated Date Inactivated Comments 05/02/2024 2:34 PM 05/04/2024 5:37 PM Care 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
--- OUTSIDE RECORDS SUMMARY | 2024-10-14 14:18 | XMS_ITS ---
Author Organization [facility] Address [address] [place] [address] Care Team Providers Care Acute Care Physical Therapist Name Role Phone Clementina Lynn Primary Care Provider Dwaine Jahairapaige Pineda [phone] Allergies No Known Allergies REASON FOR VISIT update standing orders Medications Medication SIG (Take, Route, Frequency, Duration) Notes Start Date End Date Status traZODone HCl 100 MG 0.5 to 1 tablet at bedtime Orally Once a day for 30 days As needed for sleep induction Active QUEtiapine Fumarate 100 MG 1 tablet Orally Once a day for 30 day(s) Active Pantoprazole Sodium 40 MG 1 tablet Orally Once a day Not-Taking Sertraline HCl 100 MG 2 tablet Orally Once a day for 30 days Active hydrOXYzine HCl 25 MG 1-2 tablets as needed Orally twice a day for 30 days Not-Taking QUEtiapine Fumarate 25 MG TAKE 1/2 to 1 TABLET BY MOUTH EVERY DAY IF NEEDED FOR ANXIETY. MAY GIVE HALF TABLET IF TOO SEDATING 30 DAYS Orally Once a day for 30 days As needed Not-Taking Indomethacin 50 MG 1 capsule as needed Orally Three times daily for 14 days Active ARIPiprazole 15 MG 1 tablet at bedtime Orally Once a day for 30 days Active Multivitamin - 1 tablet Orally Once a day for 30 day(s) Active Folic Acid 1 MG 1 tablet Orally Once a day for 30 day(s) Active Indocin 50 MG 1 capsule with food or milk Orally Twice a day for 30 day(s) Not-Taking Allopurinol 100 MG 1 tablet Orally Once a day for 30 days Not-Taking Sertraline HCl 100 MG 1 tablet for 14 days then 0.5 tablet for 14 days. Orally Once a day for 30 days compliance packs & mail please. tapering seroquel, titrating aripiprazole, tapering sertraline Not-Taking Naltrexone HCl 50 MG 1 tablet Orally Once a day for 30 days Not-Taking QUEtiapine Fumarate 25 MG TAKE 1 TABLET BY MOUTH EVERY DAY IF NEEDED FOR ANXIETY. MAY GIVE HALF TABLET IF TOO SEDATING 30 DAYS Orally for 1 days Sending a 8 day bridge refill to cover until f/u. Not-Taking Social History Sex Assigned At : Social History Observation Description Sex Assigned At Male Vital Signs Weight 147 lbs 10/11/2024 Height 68.75 in 10/11/2024 BMI 21.86 kg/m2 10/11/2024 Blood pressure systolic 138 mm Hg 10/11/19 25 Blood pressure diastolic 94 mm Hg 025 Heart Rate 68 /min 10/11/2024 Oximetry 98 % 10/11/2024 Respiratory Rate 16 /min 10/11/2024 Encounters Encounter Location Date Provider Diagnosis [facility] [address] [place] [address] 10/11/2024 Jahaira Isidro ETOH abuse F10.10 Assessments Encounter Date Diagnosis (ICD Code) Assessment Notes Treatment Notes Treatment Clinical Notes Section Notes 10/11/2024 ETOH abuse (ICD-10 - F10.10) Pt. being admitted to [facility] residential unit. Plan Of Treatment Treatment Notes Assessment Notes ETOH abuse Pt. being admitted t o [facility] residential unit. Next Appt Details Follow Up: 6 Months, Reason: f/u Provider Name:Clementina Lynn, 0 10/15/2024 08:20:00 AM, [address] [place] [address], [id number], Provider Name:Jahaira Johnston rt, 10/16/2024 09:20:00 AM, [address], [place], [address], Progress Notes * Nico NICHOLEDOB:[birth year] (34 yo M)Acc No.[id number]:10/11/2024 Patient: Nico RAMIREZ Provider: Alejo Isidro APRN :1990 A ge:34 Y S ex:Male Date:10/11/2024 Address:[address] [place] [address] [place], [address] [place], [place] [id number] Pcp:Clementina Lynn Subjective: * Chief Complaints: * U pdate standing orders * HPI: D epression Screening: PHQ-9 L ittle interest or pleasure in doing things N ot at all, F eeling down, depressed, or hopeless N ot at all, T rouble falling or staying asleep, or sleeping too much N early every day, F eeling tired or having little energy S everal days, P oor appetite or overeating M ore than half the days, F eeling bad about yourself or that you are a failure, or have let yourself or your family down N ot at all, T rouble concentrating on things, such as reading the newspaper or watching television S everal , M oving or speaking so slowly that other people could have noticed; or the opposite, being so fidgety or restless that you have been moving around a lot more than usual N ot at all, T houghts that you would be better off or of hurting yourself in some way N ot at all, T otal Score 7 , I nterpretation M ild Depression. I ntervention D epression Screening Findings N egative. S ummary: Kenji returned from [facility] warm handoff for ETOH detox. Reports he is no longer taking Allopurinol daily, just Indomethacin PRN up to 3x daily as needed for flare-up Denies, tremors, N/V/D, s/s of ETOH detox complete physical was not preformed as he was just seen in clinic 2 days prior. * ROS: G eneral/Constitutional: Denies C hange in appetite. D enies C hills. D enies F atigue. D enies F ever. D enies H eadache. D enies W eight loss.? R espiratory: Denies D yspnea. C ardiovascular: Denies E lópez. D enies C hest pain. D enies?Claudication. G astrointestinal: Denies A bdominal pain. D enies N ausea. G enitourinary: urinary problems D enies. M usculoskeletal: Patient denies m usculoskeletal concerns. S kin: Denies Shirley akins. * Medical History: * Surgical History: t ypanostomy tubes childhood Child * Hospitalization/Major Diagno stic Procedure: M H x2 28 day rehab [facility] February 2022ER for Gout attack 05/22 * Family History: Pt is adopted. Family history is unknown. adoption papers report biological GF had AUD. Mom of an accident and Gabriel was adopted at 5 months. adoptive parents with [employer]. * Social History: P rimary Social History: L iving Arrangement L iving Arrangement: Independent Living ,Is this a supportive environment? Yes .. A lcohol Use A lcohol Use Frequency: W eekly or Daily drinks 6 beers and 4 to 6 fire ball, T ype of alcohol consumed Patient states he would drink everything. I llicit Substance Usage I llicit Substance Usage: No .. E mployment Status E mployment Status: U nemployed Reports multiple jobs over the past few years bu unable ot maintain due to alcohol and mental health symptoms. 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 * Medications: T akingMultivitamin - Tablet 1 tablet Orally Once a day Folic Acid 1 MG Tablet 1 tablet Orally Once a day Indomethacin 50 MG Capsule 1 capsule as needed Orally Three times daily ARIPiprazole 15 MG Tablet 1 tablet at bedtime Orally Once a day Sertraline HCl 100 MG Tablet 2 tablet Orally Once a day traZODone HCl 100 MG Tablet 0.5 to 1 tablet at bedtime Orally Once a day As needed for sleep inductionQUEtiapine Fumarate 100 MG Tablet 1 tablet Orally Once a day Taking Multivitamin - Tablet 1 tablet Orally Once a day Taking Folic Acid 1 MG Tablet 1 tablet Orally Once a day Taking Indomethacin 50 MG Capsule 1 capsule as needed Orally Three times daily Taking ARIPiprazole 15 MG Tablet 1 tablet at bedtime Orally Once a day Taking Sertraline HCl 100 MG Tablet 2 tablet Orally Once a day Taking traZODone HCl 100 MG Tablet 0.5 to 1 tablet at bedtime Orally Once a day As needed for sleep inductionTaking QUEtiapine Fumarate 100 MG Tablet 1 tablet Orally Once a day Not-TakingAllopurinol 100 MG Tablet 1 tablet Orally Once a day QUEtiapine Fumarate 25 MG Tablet TAKE 1/2 to 1 TABLET BY MOUTH EVERY DAY IF NEEDED FOR ANXIETY. MAY GIVE HALF TABLET IF TOO SEDATING 30 DAYS Orally Once a day As neededPantoprazole Sodium 40 MG Tablet Delayed Release 1 tablet Orally Once a day hydrOXYzine HCl 25 MG Tablet 1-2 tablets as needed Orally twice a day Sertraline HCl 100 MG Tablet 1 tablet for 14 days then 0.5 tablet for 14 days. Orally Once a day , Notes to Pharmacist: compliance packs & mail please. tapering seroquel, titrating aripiprazole, tapering sertralineNaltrexone HCl 50 MG Tablet 1 tablet Orally Once a day QUEtiapine Fumarate 25 MG Tablet TAKE 1 TABLET BY MOUTH EVERY DAY IF NEEDED FOR ANXIETY. MAY GIVE HALF TABLET IF TOO SEDATING 30 DAYS Orally , Notes to Pharmacist: Sending a 8 day bridge refill to cover until f/u.Indocin 50 MG Capsule 1 capsule with food or milk Orally Twice a day Medication List reviewed and reconciled with the patientNot-Taking Allopurinol 100 MG Tablet 1 tablet Orally Once a day Not-Taking QUEtiapine Fumarate 25 MG Tablet TAKE 1/2 to 1 TABLET BY MOUTH EVERY DAY IF NEEDED FOR ANXIETY. MAY GIVE HALF TABLET IF TOO SEDATING 30 DAYS Orally Once a day As neededNot-Taking Pantoprazole Sodium 40 MG Tablet Delayed Release 1 tablet Orally Once a day Not-Taking hydrOXYzine HCl 25 MG Tablet 1-2 tablets as needed Orally twice a day Not-Taking Sertraline HCl 100 MG Tablet 1 tablet for 14 days then 0.5 tablet for 14 days. Orally Once a day , Notes to Pharmacist: compliance packs & mail please. tapering seroquel, titrating aripiprazole, tapering sertralineNot-Taking Naltrexone HCl 50 MG Tablet 1 tablet Orally Once a day Not-Taking QUEtiapine Fumarate 25 MG Tablet TAKE 1 TABLET BY MOUTH EVERY DAY IF NEEDED FOR ANXIETY. MAY GIVE HALF TABLET IF TOO SEDATING 30 DAYS Orally , Notes to Pharmacist: Sending a 8 day bridge refill to cover until f/u.Not-Taking Indocin 50 MG Capsule 1 capsule with food or milk Orally Twice a day Medication List reviewed and reconciled with the patient * Allergies: N .K.D.A.no[Allergies Verified] Objective: * Vitals: I nitials: hp, Wt:147, Ht: 68.75, BMI:21.86, BP:138/94, HR:68, Oxygen sat %:98, RR:16, Pain scale:0. * Examination: G eneral Examination: GENERAL APPEARANCE: a lert, oriented, well developed, well nourished, in no acute distress. EYES: P ERRLA, sclera and conjunctiva clear. HEART: r egular rate and rhythm, no murmurs. LUNGS: r espirations regular and easy, clear to auscultation bilaterally. Assessment: * Assessment: 1. E STEPHANY abuse - F10.10 (Primary) Plan: * Treatment: * Recommended Wellness and Pre vention Guidelines: * S tatus A lert L ast Done N ext Due A ction Taken N ONCOMPLIANT H IV screening - 0 10/11/2024 - * Procedure Codes: * Follow Up: 6 Months (Reason: f/u) * * PRESS DEVELOPER Sign off status: Completed true * Provider: Alejo Isidro APRN Date: 0 10/11/2024 Generated for Beth rizvi/Rafat/Kali on: 0 10/14/2024 02:18 PM [employer] DEVELOPER History and Physical Notes * HPI (History of Present Illness) Category Sub-Category Detail Notes Category Not es Depression Screening PHQ-9 Little inte rest or pleasure in doing things: Not at all Feeling down, depressed, or hopeless: No t at all Trouble falling or staying asleep, or sl eeping too much: Nearly every day Feeling tired or having little energy: S everal days Poor appetite or overeating: More than h tomas the days Feeling bad about yourself o r that you are a failure, or have let yourself or your family down: Not at all Trouble concentrating on thi ngs, such as reading the newspaper or watching television: Several days Moving or speaking so slowly that other people could have noticed; or the opposite, being so fidgety or restless that you have been moving around a lot more than usual: Not at all Thoughts that you would be b quentin off or of hurting yourself in some way: Not at all Total Score: 7 Interpretation: Mild Depression Intervention Depression Screening Findings: N egative Summary Kenji returned from [facility] warm handoff for ETOH detox. Reports he is no longer taking Allopurinol daily, just Indomethacin PRN up to 3x daily as needed for flare-up Denies, tremors, N/V/D, s/s of ETOH detox complete physical was not preformed as he was just seen in clinic 2 days prior Examination Category Sub-Category Detail Notes Category Not es General Examination GENERAL APPEARANCE: alert, o riented, well developed, well nourished, in no acute distress EYES: PERRLA, sclera and c onjunctiva clear HEART: regular rate and rhy thm, no murmurs LUNGS: respirations regular and easy, clear to auscultation bilaterally
--- NOTE | 2024-10-14 14:19 | ED_ITS ---
HPI - Head Injury General Chief complaint: Head Injury Stated complaint: hit head Time Seen by Provider: 10/14/24 14:08 Source: patient Mode of arrival: ambulatory Limitations: no limitations History of Present Illness HPI Narrative: This is a 34-year-old male who presents to the ED for chief complaint of head injury today. He is presenting from [facility]. Patient states that he slid into a wall and struck his head. Denies LOC. States that he felt like he saw stars but was able to stand up and has been able to ambulate without difficulty. Denies neck pain. Denies numbness, weakness or any further injury. Related Data Allergies Allergy/AdvReac Type Severity Reaction Status Date / Time No Known Allergies Allergy Verified 10/14/24 13:13 Review of Systems Review of Systems: All systems as dictated in HPI Exam Narrative: GENERAL: Well-appearing, well-nourished, and in no acute distress. HEAD: Normocephalic, atraumatic. EYES: PERRLA and EOMI. ENT: Nares clear, no rhinorrhea or epistaxis. Mucous membranes moist. Oropharynx without tonsillar hypertrophy exudate or other lesions. NECK: Supple. No adenopathy or masses. CHEST: No respiratory distress. Clear to auscultation. No wheezes rales or rhonchi HEART: Regular rate and rhythm. No murmur heard. Normal peripheral pulses. ABDOMEN: Soft, nontender, nondistended, normal active bowel sounds. MSK: Normal range of motion. No edema. SKIN: Warm, dry, no rash. NEURO: Alert and oriented x4. No focal deficits. PSYCH: Normal mood and affect. Course Vital Signs Vital signs: Vital Signs Temperature 97.7 F 10/14/24 13:15 Pulse Rate 97 10/14/24 13:15 Respiratory Rate 10/14/24 13:15 Blood Pressure 137/91 H 10/14/24 13:15 Pulse Oximetry 99 10/14/24 13:15 Temperature 97.7 F 10/14/24 13:15 Pulse Rate 97 10/14/24 13:15 Respiratory Rate 20 10/14/24 13:15 Blood Pressure 137/91 H 10/14/24 13:15 Pulse Oximetry 99 10/14/24 13:15 MDM - Head Injury MDM Narrative Medical decision making narrative: This is a 34-year-old male who presents to the ED for chief complaint of head injury while playing basketball today. He fell down, slid into a brick wall. Vitals are normal. Exam is benign. No neurologic deficits. No midline cervical spine tenderness. Presentation consistent with closed injury potentially mild concussion. Rx for Tylenol and ibuprofen given. Patient will be discharged in stable condition. Supportive measures discussed and return precautions given. Patient is understanding and agreeable with plan for discharge with PCP follow-up. [email or web address] CT Head Injury/Trauma Rule from [employer] on 10/14/2024 All calculations should be rechecked by clinician prior to use RESULT SUMMARY: CT Unnecessary The [place] CT Head Rule suggests a head CT is not necessary for this patient (sensitivity 83-100% for all intracranial traumatic findings, sensitivity 100% for findings requiring neurosurgical intervention). INPUTS: Age <16 years ?> 0 = No Patient on blood thinners ?> 0 = No Seizure after injury ?> 0 = No GCS <15 at 2 hours post-injury ?> 0 = No Suspected open or depressed skull fracture ?> 0 = No Any sign of basilar skull fracture? ?> 0 = No >= episodes of vomiting ?> 0 = No Age >=5 years ?> 0 = No Retrograde amnesia to the event >=30 minutes ?> 0 = No ?Dangerous? mechanism? ?> 0 = No [email or web address] C-Spine Rule from [facility] on 10/14/2024 All calculations should be rechecked by clinician prior to use RESULT SUMMARY: Low risk C-spine can be cleared clinically by these criteria. No imaging is required. INPUTS: Age >=5 years, extremity paresthesias, or dangerous mechanism ?> 1 = No Low risk factor present ?> 2 = Yes Able to actively rotate neck 45? left and right ?> 2 = Yes Discharge Plan Discharge Clinical Impression: Closed head injury Patient Disposition: Home, Self-Care Condition: Stable Instructions: Antibiotic Form, Concussion (ED) Additional Instructions: Your exam today is reassuring overall. You may have suffered a mild concussion. You may get some headaches with the symptoms should resolve over the next week. If you have any new or worsening symptoms please return to the ER for further evaluation. Patient Language: Kinyarwanda Prescriptions: New ibuprofen 600 mg tablet 600 mg PO Q6H PRN (Reason: fever or pain) Qty: 30 0RF acetaminophen [Tylenol Extra Strength] 500 mg tablet 500 mg PO Q6H PRN (Reason: fever or pain) Qty: 30 0RF No Action indomethacin 25 mg capsule 25 mg PO BID 14 Days Qty: 28 0RF Rx Instructions: administer with food or milk potassium chloride 20 mEq tablet extended release 20 meq PO DAILY Qty: 20 0RF Follow-up/Referrals: PHYSICIAN NOT ON STAFF,NONSTAFF [Primary Care Provider] - Time of Disposition: 14:29
--- OUTSIDE RECORDS SUMMARY | 2024-10-14 14:19 | XMS_ITS ---
Author Organization [facility] Address [address] [place] [address] Care Team Providers Care Storm Sash Maker Name Role Phone Clementina Lynn Primary Care Provider [phone] Wanda Oneill [phone] REASON FOR VISIT At mru Social History Sex Assigned At : Social History Observation Description Sex Assigned At Male Problems Problem Type SNOMED Code ICD Code Onset Dates Problem Status W/U Status Risk Notes Problem Bipolar I disorder (242561276) Bipolar I disorder (F31.9) Active confirmed Encounters Encounter Location Date Provider Diagnosis Formerly [facility] [address] [address] 10/11/2024 Wanda Oneill Bipolar I disorder F31.9 and Alcohol use disorder F10.99 Assessments Encounter Date Diagnosis (ICD Code) Assessment Notes Treatment Notes Treatment Clinical Notes Section Notes 10/11/2024 Bipolar I disorder (ICD-10 - F31.9) 10/11/2024 Alcohol use disorder (ICD-10 - F10.99) Plan Of Treatment Next Appt Details Follow Up: prn, Reason: Provider Name:Clementina Lynn, 0 10/15/2024 08:20:00 AM, [address], [address], Provider Name:Jahaira johnson, 10/16/2024 09:20:00 AM, [address], [place], [address], Progress Notes * Erick NICHOLE:[birth year] (34 yo M)Acc No.[id number]:10/11/2024 UNLOCKED PROGRESS NOTE Patient: Nico RAMIREZ Provider: Cleveland Oneill :1990 A ge:34 Y S ex:Male Date:10/11/2024 Address:[address] [place] [address], [address] Pcp:Clementina Lynn Subjective: * Chief Complaints: * 1 . Atbc mru. * HPI: a TBC For Substance Use Services: Who Is Your Primary Care Provider? D o You Have A Primary Care Provider? N o Scheduled with Rylee Isidro to establish care.. D o You Have A Psychiatric Provider? D o You Have A Psychiatric Provider? Y es, C HS Provider Name Gabriel sees Clementina Lynn. D o You Have Any Other Professional Supports? D o You Have Any Other Professional Supports Y es, C HS Staff Name And Role Gabriel indicated he would like outpatient therapist, no RC at this time.. C onsent Forms Completed C onsent Forms E mergency Contact None needed at this time.. A ssessment of Social Determinants of Health::: Has A PRAPARE Been Completed In The Past Year? H as a PRAPARE Been Completed In The Past Year? Y es, W as It Completed Today Using [facility]? Y es.? P sychiatric History: Family hx of psychiatric diagnosis N o history of psychiatric diagnoses, Grandfathers (adoptive and biological) used alcohol.. A buse History: Abuse was not endorsed at this time, however he indicated a diagnosis of PTSD. This should are c ontinue to be assessed. B ehavioral Health Treatment: Past behavioral health treatment: C urrently receiving mental health prescribing services for biploar disorder and PTSD. Reported a 10 year history of these symptoms. . I nitial: Strengths: . . S ummary: Mood Symptoms D epression Y es. S ymptoms Of Mavis?Grandiosity Y es, R isk Taking Behaviors Y es, I ncreased Goal Directed Behavior/Activity Y es, D ecreased Need For Sleep Y es, R acing Thoughts Y es. S ubstance Use History, Drugs Of Choice A lcohol 8 shots per day, typically in the morning. Reported if he is awake at 4am he is drinking by 5 am and done by noon.. Gabriel indicated that he has has a diagnosis of biploar disorder and PTSD for the past ten years. He has been receiving psychiatric prescribing services from Clementina Lynn. He stated that he experiences 6 months high and 6 months low and feels like he has limiteless energy and no need for sleep. Client has admitted into MRU following original health discharge. Client states being ready to admit and continue to work on goals. Client was scheduled for needed follow ups. * Medical History: Objective: * Vitals: * Examination: P sychiatry: APPEARANCE: a ppears stated age, appropriately dressed/groomed. ORIENTATION: p erson, place and time. AFFECT: a ppropriate. MOOD: e uthymic but chatty.. CURRENT HOMICIDALITY: : . CURRENT SUICIDALITY: : . INSIGHT: f air. JUDGEMENT: f air-poor. M att indicated he is seeking treatment today for alcohol use. He willingly provided mental health history and was agreeable to services at [facility]. He indicated that his last feelings of suicidal ideatioin were last year. He stated that he has been using alcohol for 16 years and that it has prevented him from completing school, holding a job, etc. Assessment: * Assessment: 1. B ipolar I disorder - F31.9 (Primary) 2 . A lcohol use disorder - F10.99? Plan: * Treatment: * Procedure Codes: 9 0791 PSYCH DIAGNOSTIC EVALUATION, Modifiers: AJ , [address] Service * Follow Up: p rn * * Electronic signature of Edison Oneill on 10/14/2024 at 02:19 PM MANAGER OF ENTERPRISE Sign off status: Pending * Provider: Cleveland Oneill Date: 0 10/11/2024 Generated for Beth Mora/Kali on: 0 10/14/2024 02:19 PM MANAGER OF [employer]TERPRISE History and Physical Notes * HPI (History of Present Illness) Category Sub-Category Detail Notes Category Not es Behavioral Health Treatment Past behavioral health treatment: Currently receiving mental health prescribing services for biploar disorder and PTSD. Reported a 10 year history of these symptoms. Abuse History Abuse was not endorsed at this time, however he indicated a diagnosis of PTSD. This should are continue to be assessed. Initial Strengths: . Psychiatric History Family hx of psychiatric diagnosis No history of psychiatric diagnoses, Grandfathers (adoptive and biological) used alcohol. Summary Mood Symptoms Depression: Yes Gabriel indicated that he has has a diagnosis of biploar disorder and PTSD for the past ten years. He has been receiving psychiatric prescribing services from Clementina Lynn. He stated that he experiences 6 months high and 6 months low and feels like he has limiteless energy and no need for sleep. Client has admitted into MRU following original health discharge. Client states being ready to admit and continue to work on goals. Client was scheduled for needed follow ups. Symptoms Of Mavis Grandiosity: Yes Risk Taking Behaviors: Yes Increased Goal Directed Behavior/Activit y: Yes Decreased Need For Sleep: Yes Racing Thoughts: Yes Substance Use History, Drugs Of Choice Alcohol: 8 shots per day, typically in the morning. Reported if he is awake at 4am he is drinking by 5 am and done by noon. Assessment of Social Determinants of Health:: Has A PRAPARE Been Completed In The Past Year? Has a PRAPARE Been Completed In The Past Year?: Yes Was It Completed Today Using [facility]?: Yes aT For Substance Use Services Who Is Your Primary Care Provider? Do You Have A Primary Care Provider?: No Scheduled with [facility] Dwaine to establish care. Do You Have A Psychiatric Provider? Do You Have A Psychiatric Provider?: Yes [facility] Provider Name: Gabriel sees Clementina Lynn Do You Have Any Other Profes sional Supports? Do You Have Any Other Professional Supports: Yes [facility] Staff Name And Role: Gabriel indicated he would like outpatient therapist, no RC at this time. Consent Forms Completed Consent Forms: Emergency Contact None needed at this time. Examination Category Sub-Category Detail Notes Category Not es Psychiatry APPEARANCE: appears stated a ge, appropriately dressed/groomed Gabriel indicated he is seeking treatment today for alcohol use. He willingly provided mental health history and was agreeable to services at [facility]. He indicated that his last feelings of suicidal ideatioin were last year. He stated that he has been using alcohol for 16 years and that it has prevented him from completing school, holding a job, etc. ORIENTATION: person, place and ti me AFFECT: appropriate MOOD: euthymic but chatty. INSIGHT: fair JUDGEMENT: fair-poor CURRENT SUICIDALITY: : CURRENT HOMICIDALITY: :
--- OUTSIDE RECORDS SUMMARY | 2024-10-14 14:19 | XMS_ITS ---
Author Organization [facility] Address [address] [place] [address] Care Team Providers Care Milling Machinist Name Role Phone Clementina Lynn Primary Care Provider Social History Sex Assigned At : Social History Observation Description Sex Assigned At Male Encounters Encounter Location Date Provider Diagnosis Formerly [facility] [address] [place] [address] 10/12/2024 Clementina Lynn Plan Of Treatment Next Appt Details Provider Name:Clementina Lynn, 0 10/15/2024 08:20:00 AM, [address] [place] [address], [address], Provider Name:Jahaira johnson, 10/16/2024 09:20:00 AM, [address], [place], [address], Progress Notes * Nico NICHOLEDOB:[birth year] (34 yo M)Acc No.[id number]:10/12/2024 UNLOCKED PROGRESS NOTE Patient: Nico RAMIRZE :1990 A ge:34 Y S ex:Male Address:[address] [place] [address], [address], [place], [address] * * Date:
--- OUTSIDE RECORDS SUMMARY | 2024-10-14 14:19 | XMS_ITS | Patient Health Record ---
Author Organization [facility] Address [address] [place] [address] Care Team Providers Care Slot Technician Name Role Phone Shane Clementina Primary Care Provider [phone] Vimal Sanchez Unavailable [phone] Candelario Diamond Unavailable [phone] Manjit Conley Unavailable [phone] Keyla Jordan Unavailable [phone] Ninfa Umaña Unavailable [phone] Jahaira Isidro Unavailable [phone] Wanda Oneill Unavailable [phone] Keyla Jackman Unavailable [phone] Allergies No Known Allergies Results Component Value Reference Range Notes 12 Panel Urine Drug Screen Reviewed date:10/08/2024 02:21:26 PM Interpretation: Performing Lab: Notes/Report: THC pos WENDY neg MOP (OPI) neg AMP neg MET neg BAR neg BZO neg MDMA neg MTD neg OXY neg PCP neg BUP neg QuantiFERON-TB Gold Plus Reviewed date:10/11/2024 07:53:58 AM Interpretation:Negative Performing Lab:[facility] [place], [address] [facility], [place], Phone - [phone], Director - Cici Notes/Report: QuantiFERON Incubation Incubation performed. QuantiFERON-TB Gold Plus Negative Negative No response to M tuberculosis antigens detected. Infection with M tuberculosis is unlikely, but high risk individuals should be considered for additional testing (ATS/IDSA/CDC Clinical Practice Guidelines, 2017). The reference range is an Antigen minus Nil result of <0.35 IU/mL. Chemiluminescence immunoassay methodology QuantiFERON Criteria QuantiFERON-TB Gold Plus is a qualitative indirect test for M tuberculosis infection (including disease) and is intended for use in conjunction with risk assessment, radiography, and other medical and diagnostic evaluations. The QuantiFERON-TB Gold Plus result is determined by subtracting the Nil value from either TB antigen (Ag) value. The Mitogen tube serves as a control for the test. QuantiFERON TB1 Ag Value 0.01 QuantiFERON TB2 Ag Value 0.01 QuantiFERON Nil Value 0.04 QuantiFERON Mitogen Value >10.00 Breathalyzer Reviewed date:10/10/2024 01:44:34 PM Interpretation: Performing Lab: Notes/Report: MIKE 0.147 CMP 14 Comprehensive Metabol ic Panel* Reviewed date:07/10/2024 08:22:22 AM Interpretation: Performing Lab: Notes/Report: CBC With Differential/Platel et* Reviewed date:07/10/2024 08:23:01 AM Interpretation: Performing Lab: Notes/Report: Reason For Referral Reason Therapy; EMDR Diagnosis 1 Depression (F32.9) Diagnosis 2 Bipolar 1 disorder ( F31.9) Referral Organization [facility] Referring Provider First Name Ninfa Referring Provider Last Name Chasidy Referring Provider Speciality Psychiatry Referred Provider Specialty Psychiatry Clinical Notes Kajal Hanley 01/08 08:41:42 AM >Attempt to contact Consumer. Unable to reach Consumer at this time., Kajal Hanley 01/09/2024 02:06:20 PM > Staff RODRIGUEZ talks to Consumer. Consumer is in agreement with referral and states they may not have insurance at this time. Staff MICHAEL provides Consumer with information on how to get linked with [facility] and sliding fee scale option. Staff MICHAEL also gives Consumer community option based on prior insurance information. When discussing insurance need, Consumer reports they make just a bit too much to utilize any medicaid programing and would not need CAC follow up. Referral addressed, closing. Referral Priority Routine Reason Hx. of rectal bleedi ng possibly r/t ETOH abuse. Diagnosis 1 Rectal bleeding (K62 .5) Referral Organization [facility] Referring Provider First Name Jahaira Referring Provider Last Name Dwaine Referring Provider [facility] icisissy Referred Provider Specialty Gastroentero logy General Notes Prefers provider in [place], [place], Sulema CAMPA, Missy Oakes 05/08/2024 04:10:22 PM > Successfully faxed referral order/pertinent pt. information to [facility] at [facility]. Pt. notified of referral information both by CRU staff verbally and by letter sent via CRU staff email and given to pt. Clinical Notes [facility] [facility] at [facility], Located in: [facility], Address: [address] [place] [address] Dr. Burns, [place] [phone], , Referral Priority Routine Reason individualized thera py; PT IS ON CRU Diagnosis 1 Bipolar 1 disorder ( F31.9) Referral Organization [facility] Referring Provider First Name Ninfa Referring Provider Last Name Chasidy Referring Provider Speciality Psychiatry Referred Provider Specialty Psychiatry gamaliel wilson Clinical Notes Albina Graves 05/11/2024 03:44:08 PM >spoke with client on the crisis unit regarding the process of initiating therapy. Client agreed with the instructions and stated he would make an appt for therapy prior to leaving the unit. Referral Priority Routine Medications Medication SIG (Take, Route, Frequency, Duration) [...] a day Not-Taking QUEtiapine Fumarate 25 MG TAKE 1/2 to 1 TABLET BY MOUTH EVERY DAY IF NEEDED FOR ANXIETY. MAY GIVE HALF TABLET IF TOO SEDATING 30 DAYS Orally Once a day for 30 days As needed Not-Taking Indocin 50 MG 1 capsule with food or milk Orally Twice a day for 30 day(s) Not-Taking Indomethacin 50 MG 1 capsule as needed Orally Three times daily for 14 days Active ARIPiprazole 15 MG 1 tablet at bedtime Orally Once a day for 30 days Active Sertraline HCl 100 MG 2 tablet Orally Once a day for 30 days Active hydrOXYzine HCl 25 MG 1-2 tablets as needed Orally twice a day for 30 days Not-Taking Allopurinol 100 MG 1 tablet Orally Once a day for 30 days Not-Taking Sertraline HCl 100 MG 1 tablet for 14 days then 0.5 tablet for 14 days. Orally Once a day for 30 days compliance packs & mail please. tapering seroquel, titrating aripiprazole, tapering sertraline Not-Taking Multivitamin - 1 tablet Orally Once a day for 30 day(s) Active Naltrexone HCl 50 MG 1 tablet Orally Once a day for 30 days Not-Taking Folic Acid 1 MG 1 tablet Orally Once a day for 30 day(s) Active QUEtiapine Fumarate 25 MG TAKE 1 TABLET BY MOUTH EVERY DAY IF NEEDED FOR ANXIETY. MAY GIVE HALF TABLET IF TOO SEDATING 30 DAYS Orally for 1 days Sending a 8 day bridge refill to cover until f/u. Not-Taking Social History Sex Assigned At : Social History Observation Description Sex Assigned At Male PRAPARE Question Answer Notes Date Completed/Updated: 10/08/2024 What is your current housing situation? I have h ousing Are you worried about losing your housing? No What is the highest level of school that you have finished? More than high school What is your current work situation? Unemployed and seeking work In the past year, have you o r any family members you live with been unable to get any of the following when it was really needed? Check all that apply I do not have problems meeting my needs Has lack of transportation k ept you from medical appointments, meetings, work or from getting things needed for daily living? No How often do you see or talk to people that you care about and feel close to? (For example: talking to friends on the phone, visiting friends or family, going to anabaptism or club meetings) 1 or 2 times a week How stressed are you? Stress is when someone feels tense, nervous, anxious, or can\t sleep at night because their mind is troubled Somewhat In the past year have you sp ent more than 2 nights in a row in a detention, half-way, assisted center, or juvenile correctional facility? No Are you a refugee? I choose not to answer this q uestion What country are you from? I choose not to answe r this question Do you feel physically and e motionally safe where you currently live? Yes In the past year, have you b een afraid of your partner or ex-partner? No PRAPARE Score: 5 Enabling Services Provided? 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 a social working company currently works as a case ai de for a social working company currently works as a case ai de for a social working company currently works as a case ai de for a social working company currently works as a case ai de for a social working company currently works as a case ai de for a social working company currently works as a case ai de for a social working company currently works as a case ai de for a social working company currently works as a case ai de for a social working company currently works as a case ai de for a social working company currently works as a case ai de for a social working company currently works as a case ai de for a social working company currently works as a case ai de for a social working company currently works as a case ai de for a social working company currently works as a case ai de for a social working company currently works as a case ai de for a social working company currently works as a case ai de for a social working company currently works as a case ai de for a social working company currently works as a case ai de for a social working company currently works as a case ai de for a social working company currently works as a case ai de for a social working company currently works as a case ai de for a social working company currently works as a case ai de for a social working company Problems Problem Type SNOMED Code ICD Code Onset Dates Problem Status W/U Status Risk Notes Problem Tobacco user (937635128) Nicotine dependence, unspecified, uncomplicated (F17.200) 03/09/20 Active confirmed Problem Depression (607799331) Depression (F32.9) 06/01/20 Active confirmed Problem Alcohol abuse (17734425) Alcohol abuse (F10.10) Active confirmed Problem 389116247 Bipolar 1 disorder (F31.9) 06/01/20 Active confirmed Problem History of psychiatric disorder (697348865) History of bipolar disorder (Z86.59) 03/09/20 Active confirmed History of Bipolar 1. 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) Active confirmed Vital Signs Heart Rate 68 /min 10/11/2024 Temperature 98.6 degrees Fahrenheit 05/08/2024 Respiratory Rate 16 /min 10/11/2024 Blood pressure diastolic 94 mm Hg 10/11/2024 Oximetry 98 % 10/11/2024 Height 68.75 in 10/11/2024 Blood pressure systolic 138 mm Hg 10/11/2024 Weight 147 lbs 10/11/2024 BMI 21.86 kg/m2 10/11/2024 Encounters Encounter Location Date Provider Diagnosis [facility] [address] [place] [address] 10/12/2024 Clementina Lynn [address] [place] [address] 10/25/2023 Ninfa Umaña [address] [place] [address] 12/26/2023 Ninfajonatan Umaña Bipolar 1 disorder F31.9 and Depression F32.[address] [place] [address] 01/09/2024 Keyla Jordan [address] [place] [address] 01/20/2024 Ninfa Chasidy Bipolar 1 disorder F31.[address] [facility] [place] [address] 03/05/2024 Ninfa Chasidy Bipolar 1 disorder F31.9 [facility] [address] [place] [address] 05/04/2024 Candelario Diamond [facility] [address] [address] 05/30/2024 Ninfa Umaña [facility] [address] [place] [address] 05/30/2024 Ninfa Umaña [facility] [address] [place] [address] 05/31/2024 Clementina Lynn [address] [place] [address] 07/06/2024 Clementina Shane [address] [address] 07/06/2024 Jahaira Isidro Gout M10.[address] [address] 07/25/2024 Clementina Lynn [address] [place] [address] 08/16/[address] [address] 08/27/2024 Clementina Lynn [address] [address] 08/27/[address] [address] 10/08/2024 Jahaira Isidro [address] [address] 11/02/2023 Ninfa Umaña Nicotine dependence, unspecified, uncomplicated F17.200 ; History of bipolar disorder Z86.59 ; Alcohol use disorder F10.99 ; Bipolar 1 disorder F31.9 and Depression F32.9 [facility] [place] [address] 05/08/2024 Jahaira Isidro Gout M10.9 ; Hypokalemia E87.6 and Nicotine dependence, unspecified, uncomplicated F17.200 [facility] [place] [address] 03/21/2024 Manjit Conley Nicotine dependence, unspecified, uncomplicated F17.200 and General medical exam Z00.00 [facility] [place] [address] 05/07/2024 Jahaira Isidro General medical examination Z00.00 ; Rectal bleeding K62.5 and Nicotine dependence, unspecified, uncomplicated F17.200 [facility] [address] [place] [address] 10/11/2024 Jahaira Isidro ETOH abuse F10.10 [facility] [address] [place] [address] 10/08/2024 Jahaira Isidro Adult general medical exam Z00.00 and Nicotine dependence, unspecified, uncomplicated F17.[address] [place] [address] 05/09/2024 Ninfa Umaña Nicotine dependence, unspecified, uncomplicated F17.200 ; History of bipolar disorder Z86.59 ; Alcohol use disorder F10.99 ; Bipolar 1 disorder F31.9 and Depression F32.9 [facility] [address] [address] 05/30/2024 Clementina Lynn Alcohol use disorder F10.99 ; Bipolar 1 disorder F31.9 ; Nicotine dependence, unspecified, uncomplicated F17.200 and Medication monitoring encounter Z51.[address] [place] [address] 01/03/2024 Ninfa Umaña History of bipolar disorder Z86.59 ; Alcohol use disorder F10.99 ; Bipolar 1 disorder F31.9 and Depression F32.[address] [place] [address] 03/06/2024 Ninfa Umaña History of bipolar disorder Z86.59 ; Alcohol use disorder F10.99 ; Bipolar 1 disorder F31.9 and Depression F32.9 [facility] [address] [address] 07/11/2024 Clementina Lynn Bipolar 1 disorder F31.9 ; Alcohol use disorder F10.99 ; Nicotine dependence, unspecified, uncomplicated F17.200 and Medication monitoring encounter Z51.81 [facility] [address] [address] 07/12/2024 Clementina Lynn Bipolar 1 disorder F31.9 ; Alcohol use disorder F10.99 ; Nicotine dependence, unspecified, uncomplicated F17.200 and Medication monitoring encounter Z51.81 [facility] [address] [place] [address] 07/30/2024 Clementina Shane Bipolar 1 disorder F31.9 ; Alcohol use disorder F10.99 ; Nicotine dependence, unspecified, uncomplicated F17.200 and Medication monitoring encounter Z51.81 [place] [address] [address] 08/07/2024 Clementina [place] Bipolar 1 disorder F31.9 ; Alcohol use disorder F10.99 ; Nicotine dependence, unspecified, uncomplicated F17.200 and Medication monitoring encounter Z51.81 [facility] [address] [place] [address] 08/14/2024 Clementina Shane Bipolar 1 disorder F31.9 ; Alcohol use disorder F10.99 ; Nicotine dependence, unspecified, uncomplicated F17.200 and Medication monitoring encounter Z51.81 [place] [address] [place] [address] 08/21/2024 Clementina Shane Bipolar 1 disorder F31.9 ; Alcohol use disorder F10.99 ; Nicotine dependence, unspecified, uncomplicated F17.200 and Medication monitoring encounter Z51.81 [place] [address] [place] [address] 09/03/2024 Clementina Shane Bipolar 1 disorder F31.9 ; Alcohol use disorder F10.99 ; Nicotine dependence, unspecified, uncomplicated F17.200 and Medication monitoring encounter Z51.81 [place] [address] [place] [address] 09/10/2024 Clementina Shane Bipolar 1 disorder F31.9 ; Alcohol use disorder F10.99 ; MTHFR gene mutation E72.12 and Compulsive behavior R46.89 [facility] [address] [place] [address] 09/26/2024 Clementina Shane Bipolar 1 disorder F31.9 ; Alcohol use disorder F10.99 ; MTHFR gene mutation E72.12 and Compulsive behavior R46.89 [place] [address] [place] [address] 10/08/2024 Keyla Jackman Bipolar I disorder F31.9 and Alcohol use disorder F10.99 [facility] [address] [place] [address] 10/11/2024 Wanda Mai Bipolar I disorder F31.9 and Alcohol use disorder F10.99 Assessments Encounter Date Diagnosis (ICD Code) Assessment Notes Treatment Notes Treatment Clinical Notes Section Notes 01/20/2024 Bipolar 1 disorder (ICD-10 - F31.9) 07/11/2024 Bipolar 1 disorder (ICD-10 - F31.9) Discussed some of his Genesight testing profile which shows reduced folic acid conversion. He is fascinated by the idea that there is a biological basis for mood and MH disorder. Need labs from ED visit on 05/08/24 to check basic GFR and liver enzymes. CLient would benefit from a STRONG for bipolar disorder and from Vivtrol/naltrexone for AUD but I desire to check labs prior to initating new meds. Screening labs from 04/20 showed elevated A1C, anemia RT folate deficiency (like due to ETOH) and high TRG at 478. Would like to review ED labs then order what is missing for clearer picture of health status prior to initiating new medications. Fasting labs ordered today. 10/08/2024 Adult general medical exam (ICD-10 - Z00.00) 10/08/2024 Bipolar I disorder (ICD-10 - F31.9) 10/08/2024 Alcohol use disorder (ICD-10 - F10.99) 10/11/2024 Bipolar I disorder (ICD-10 - F31.9) 10/11/2024 ETOH abuse (ICD-10 - F10.10) Pt. being [facility] to [facility]. 03/21/2024 Nicotine dependence, unspecified, uncomplicated (ICD-10 - F17.200) 03/21/2024 General medical exam (ICD-10 - Z00.00) Continue treatment as recommended by [facility] staff. Encouraged patient to obtain routine medical care with patient's own primary care provider or establish as a patient at [facility] if no current primary care provider. 03/06/2024 History of bipolar disorder (ICD-10 - Z86.59) History of Bipolar 1. Mostly likely mixed episode currently 03/05/2024 Bipolar 1 disorder (ICD-10 - F31.9) 11/02/2023 Nicotine dependence, unspecified, uncomplicated (ICD-10 - F17.200) 08/07/2024 Bipolar 1 disorder (ICD-10 - F31.9) Agrees to call for CRU Med Change form Queitapine to Ariripiprazole plan was emailed to Gabriel: Queitapine IR 800mg continue dose for 14 days, then 400mg for 14 days, Aripiprazole 5 mg x 7 days. then 10 mg x 7 days, continue 10 mg x 21 days. Decreasing sertaline: 100 mg x14 days ,then 50 mg QD x 14 days Discussed Genesight testing profile which shows reduced folic acid conversion. He is fascinated by the idea that there is a biological basis for mood and MH disorder. Encouraged L -methlyfolate 12 mg QD for reduced folic acid conversion. CLient would benefit from a STRONG for bipolar disorder and from Vivtrol/naltrexone for AUD. Discussed case with collaborator Craig Perez MD. 05/30/2024 Bipolar 1 disorder (ICD-10 - F31.9) Client to continue with queitapine 400 x 2 at [facility] and sertraline 100mg X 2 QD as ordered for now. Genesight testing. Client with high potential for noncompliance with new agent--desires to bing to most responsive agent. Need labs from ED visit on 05/08/24 to check basic GFR and liver enzymes. CLient would benefit from a STRONG for bipolar disorder and from Vivtrol/naltrexone for AUD but I desire to check labs prior to initating new meds. Discussed IR vs. ER QUeitapine, unclear why using one dose of IR at QHS. However, anticipate changing this agent due to potential for abuse and client has a long HX of GASTON and AUD and this agent can cause somnulence and falls. Screening labs from 04/20 showed elevated A1C, anemia RT folate deficiency (like due to ETOH) and high TRG at 478. Would like to review ED labs then order what is missing for clearer picture of health status prior to initiating new medications. Fasting labs ordered today. 05/30/2024 Alcohol use disorder (ICD-10 - F10.99) 05/09/2024 Nicotine dependence, unspecified, uncomplicated (ICD-10 - F17.200) 09/03/2024 Bipolar 1 disorder (ICD-10 - F31.9) trazadone 100 mg QHS PRN added. increased back to sertraline 200 mg QD hold naltrexone for now. Discussed Genesight testing profile which shows reduced folic acid conversion. He is fascinated by the idea that there is a biological basis for mood and MH disorder. taking L -methlyfolate 12 mg QD for reduced folic acid conversion. CLient would benefit from a STRONG for bipolar disorder and from Vivtrol/naltrexone for AUD. Discussed case with collaborator Craig Perez MD. 08/21/2024 Bipolar 1 disorder (ICD-10 - F31.9) Aripiprazole increased to 15 mg QHS and QUeitapine decreased to 200mg QHS and trazadone 100 mg QHS PRN added. decreased sertraline 50 mg QD Discussed Genesight testing profile which shows reduced folic acid conversion. He is fascinated by the idea that there is a biological basis for mood and MH disorder. taking L -methlyfolate 12 mg QD for reduced folic acid conversion. CLient would benefit from a STRONG for bipolar disorder and from Vivtrol/naltrexone for AUD. Discussed case with collaborator Craig Perez MD. 08/14/2024 Bipolar 1 disorder (ICD-10 - F31.9) DId not call for CRU and may or may not do this. Med Change form Queitapine to Ariripiprazole plan was emailed to Gabirel: Queitapine IR 800mg continue dose for 14 days, then 400mg for 14 days, Aripiprazole 5 mg x 7 days. then 10 mg x 7 days, continue 10 mg x 21 days. Decreasing sertaline: 100 mg x14 days ,then 50 mg QD x 14 days Discussed Genesight testing profile which shows reduced folic acid conversion. He is fascinated by the idea that there is a biological basis for mood and MH disorder. Encouraged L -methlyfolate 12 mg QD for reduced folic acid conversion. CLient would benefit from a STRONG for bipolar disorder and from Vivtrol/naltrexone for AUD. Discussed case with collaborator Craig Perez MD. 09/26/2024 Bipolar 1 disorder (ICD-10 - F31.9) trazadone 100 mg QHS PRN added. increased back to sertraline 200 mg QD hold naltrexone for now. taking L -methlyfolate 12 mg QD for reduced folic acid conversion. Discussed Genesight testing profile which shows reduced folic acid conversion. He is fascinated by the idea that there is a biological basis for mood and MH disorder. 09/10/2024 Bipolar 1 disorder (ICD-10 - F31.9) trazadone 100 mg QHS PRN added. increased back to sertraline 200 mg QD hold naltrexone for now. taking L -methlyfolate 12 mg QD for reduced folic acid conversion. Discussed Genesight testing profile which shows reduced folic acid conversion. He is fascinated by the idea that there is a biological basis for mood and MH disorder. CLient would benefit from a STRONG for bipolar disorder and from Vivtrol/naltrexone for AUD. Discussed case with collaborator Craig Perez MD. 09/10/2024 Alcohol use disorder (ICD-10 - F10.99) aripiprazole 15 mg QHS quietipaine IR 100mg QHS (continue to wean from IR) trazadone 100 mg QHS PRN for sleep induction sertraline 200 mg QD to target compulsive behaviros hold naltrexone for now. taking L -methlyfolate 12 mg QD for reduced folic acid conversion. Discussed Genesight testing profile which shows reduced folic acid conversion. He is fascinated by the idea that there is a biological basis for mood and MH disorder. taking L -methlyfolate 12 mg QD for reduced folic acid conversion. CLient would benefit from a STRONG for bipolar disorder and from Vivtrol/naltrexone for AUD. Discussed case with collaborator Craig Perez MD. 07/30/2024 Bipolar 1 disorder (ICD-10 - F31.9) Agrees to call for CRU/[facility]ox intake at [facility] or [facility] . Discussed the nature of GASTON with relapsing/remitting symptoms-- we understnad this and he is welcome to engage in care with us. Has medications and we will start change after detox Plan: Queitapine IR 800mg continue dose for 14 days, then 400mg for 14 days, Aripiprazole 5 mg x 7 days. then 10 mg x 7 days, continue 10 mg x 21 days. Decreasing sertaline: 100 mg x14 days ,then 50 mg QD x 14 days Discussed Genesight testing profile which shows reduced folic acid conversion. He is fascinated by the idea that there is a biological basis for mood and MH disorder. Encouraged L -methlyfolate 12 mg QD for reduced folic acid conversion. CLient would benefit from a STRONG for bipolar disorder and from Vivtrol/naltrexone for AUD. Discussed case with collaborator Craig Perez MD. 07/12/2024 Bipolar 1 disorder (ICD-10 - F31.9) Agrees to call for CRU/Detox intake at [facility] or [facility] . Discussed the nature of GASTON with relapsing/remitting symptoms-- we understnad this and he is welcome to engage in care with us. Open to changing agents. Explained I will send meds to [facility] to be mailed in compliance packs. I expect to see him Q 2 weeks. Plan for the next 4 weeks: Queitapine IR 800mg continue dose for 14 days, then 400mg for 14 days, Aripiprazole 5 mg x 7 days. then 10 mg x 7 days, continue 10 mg x 21 days. Decreasing sertaline: 100 mg x14 days ,then 50 mg QD x 14 days Discussed Genesight testing profile which shows reduced folic acid conversion. He is fascinated by the idea that there is a biological basis for mood and MH disorder. Encouraged L -methlyfolate 12 mg QD for reduced folic acid conversion. CLient would benefit from a STRONG for bipolar disorder and from Vivtrol/naltrexone for AUD. Discussed case with collaborator Craig Perez MD. 07/06/2024 Gout (ICD-10 - M10.9) 05/08/2024 Hypokalemia (ICD-10 - E87.6) 05/08/2024 Gout (ICD-10 - M10.9) 05/07/2024 Rectal bleeding (ICD-10 - K62.5) 05/07/2024 General medical examination (ICD-10 - Z00.00) 01/03/2024 History of bipolar disorder (ICD-10 - Z86.59) History of Bipolar 1. Mostly likely mixed episode currently 12/26/2023 Bipolar 1 disorder (ICD-10 - F31.9) 01/03/2024 Alcohol use disorder (ICD-10 - F10.99) Pt continues to drink 8-10 drinks per day and is not willing to go to detox at this time. Offered pt an appt with MAT, and he declines at this time as well. Educated pt that it is not recommended to drink alcohol when taking RX meds due to potential side effects. 12/26/2023 Depression (ICD-10 - F32.9) 07/12/2024 Alcohol use disorder (ICD-10 - F10.99) Discussed sequelae of childhood trauma and deregulation of nervous system, framed GASTON as attempt to self treat underlying mood disorder/pain and shame of trauma. Explained brain physiology of bipolar disorder and GASTON. Gave message of hope and healing--brain regulation and re patterning is possible. REviewed labs from 07/02/24 ER visit: BUN/creatinine/GFR all WNL, CBC WNL. liver funciton indicies WNL, UDS with + benzo/cannabis, + Ethanol. 07/30/2024 Alcohol use disorder (ICD-10 - F10.99) Discussed sequelae of childhood trauma and deregulation of nervous system, framed GASTON as attempt to self treat underlying mood disorder/pain and shame of trauma. Explained brain physiology of bipolar disorder and GASTON. Gave message of hope and healing--brain regulation and re patterning is possible. REviewed labs from 07/02/24 ER visit: BUN/creatinine/GFR all WNL, CBC WNL. liver funciton indicies WNL, UDS with + benzo/cannabis, + Ethanol. 09/10/2024 MTHFR gene mutation (ICD-10 - E72.12) 09/26/2024 Alcohol use disorder (ICD-10 - F10.99) aripiprazole 15 mg QHS quietiapine IR 100mg QHS (continue to wean ) trazadone 100 mg QHS PRN for sleep induction discussed that plan for sleep is trazodone and stop queitiapine sertraline 200 mg QD to target compulsive behaviros taking L -methlyfolate 12 mg QD for reduced folic acid conversion. Needs medically mananged detox for AUD. HE will continue to seek this. CLient would benefit from a STRONG for bipolar disorder and from Vivtrol/naltrexone for AUD. Discussed case with collaborator Craig Perez MD. 08/14/2024 Alcohol use disorder (ICD-10 - F10.99) Discussed sequelae of childhood trauma and deregulation of nervous system, framed GASTON as attempt to self treat underlying mood disorder/pain and shame of trauma. Explained brain physiology of bipolar disorder and GASTON. Gave message of hope and healing--brain regulation and re patterning is possible. Agrees to start naltrexone. REviewed labs from 07/02/24 ER visit: BUN/creatinine/GFR all WNL, CBC WNL. liver funciton indicies WNL, UDS with + benzo/cannabis, + Ethanol. Discussed AA and [facility]. Dad used to bring him to AA meetings as a kid and he is a reluctant. States he will research [facility]. 08/21/2024 Alcohol use disorder (ICD-10 - F10.99) Discussed sequelae of childhood trauma and deregulation of nervous system, framed GASTON as attempt to self treat underlying mood disorder/pain and shame of trauma. Explained brain physiology of bipolar disorder and GASTON. Gave message of hope and healing--brain regulation and re patterning is possible. Agrees to start naltrexone. REviewed labs from 07/02/24 ER visit: BUN/creatinine/GFR all WNL, CBC WNL. liver funciton indicies WNL, UDS with + benzo/cannabis, + Ethanol. Discussed AA and [facility]. Dad used to bring him to AA meetings as a kid and he is a reluctant. States he will research [facility]. 09/03/2024 Alcohol use disorder (ICD-10 - F10.99) Encouraged inpatient treatment for AUD again at [place] , that way I can continue to see him during the program. I want to I will call Discussed sequelae of childhood trauma and deregulation of nervous system, framed GASTON as attempt to self treat underlying mood disorder/pain and shame of trauma. Explained brain physiology of bipolar disorder and GASTON. Gave message of hope and healing--brain regulation and re patterning is possible. hold naltrexone for now. REviewed labs from 07/02/24 ER visit: BUN/creatinine/GFR all WNL, CBC WNL. liver funciton indicies WNL, UDS with + benzo/cannabis, + Ethanol. Discussed AA and [facility]. Dad used to bring him to AA meetings as a kid and he is a reluctant. States he will research [facility]. 05/09/2024 History of bipolar disorder (ICD-10 - Z86.59) History of Bipolar 1. Mostly likely mixed episode currently 08/07/2024 Alcohol use disorder (ICD-10 - F10.99) Discussed sequelae of childhood trauma and deregulation of nervous system, framed GASTON as attempt to self treat underlying mood disorder/pain and shame of trauma. Explained brain physiology of bipolar disorder and GASTON. Gave message of hope and healing--brain regulation and re patterning is possible. Agrees to start naltrexone. REviewed labs from 07/02/24 ER visit: BUN/creatinine/GFR all WNL, CBC WNL. liver funciton indicies WNL, UDS with + benzo/cannabis, + Ethanol. Discussed AA and [facility]. Dad used to bring him to AA meetings as a kid and he is a reluctant. States he will research [facility]. 05/30/2024 Nicotine dependence, unspecified, uncomplicated (ICD-10 - F17.200) 11/02/2023 History of bipolar disorder (ICD-10 - Z86.59) History of Bipolar 1. Mostly likely mixed episode currently 03/06/2024 Alcohol use disorder (ICD-10 - F10.99) Pt reports that he recently got his second DUI and is wanting to get admitted for alcohol detox/rehab. SPoke with Shwetha Lal with [facility] and pt will call central access and complete screening; also sent email to Janice Cormier who is in charge or detox. Email was also sent detox intake team as they will also reach out ot pt. 07/11/2024 Alcohol use disorder (ICD-10 - F10.99) Asked that he call and schedule an appt to discuss plan whie he is NOT imparied with ETOH. He agrees. 10/08/2024 Nicotine dependence, unspecified, uncomplicated (ICD-10 - F17.200) 10/11/2024 Alcohol use disorder (ICD-10 - F10.99) 07/11/2024 Nicotine dependence, unspecified, uncomplicated (ICD-10 - F17.200) 11/02/2023 Alcohol use disorder (ICD-10 - F10.99) Pt continues to drink 6-8 drinks per day and is not willing to go to detox at this time. Educated pt that it is not recommended to drink alcohol when taking RX meds due to potential side effects. Pt voices concenrs about concentration and focus; lengthy discussion about daily marijuana and alcohol use affeceting cocentration 03/06/2024 Bipolar 1 disorder (ICD-10 - F31.9) Pt reports that he is doing well on meds and does not want to make med changes at this time. Will order labs at next visit 05/30/2024 Medication monitoring encounter (ICD-10 - Z51.81) 08/07/2024 Nicotine dependence, unspecified, uncomplicated (ICD-10 - F17.200) 05/09/2024 Alcohol use disorder (ICD-10 - F10.99) Last alcohol use was 9 days ago. Pt is currently on [facility] for alcohol detox. Pt reports that this is his 9th trip to rehab/detox 09/03/2024 Nicotine dependence, unspecified, uncomplicated (ICD-10 - F17.200) 08/21/2024 Nicotine dependence, unspecified, uncomplicated (ICD-10 - F17.200) 08/14/2024 Nicotine dependence, unspecified, uncomplicated (ICD-10 - F17.200) 07/30/2024 Nicotine dependence, unspecified, uncomplicated (ICD-10 - F17.200) 09/10/2024 Compulsive behavior (ICD-10 - R46.89) 07/12/2024 Nicotine dependence, unspecified, uncomplicated (ICD-10 - F17.200) 09/26/2024 MTHFR gene mutation (ICD-10 - E72.12) 05/07/2024 Nicotine dependence, unspecified, uncomplicated (ICD-10 - F17.200) 05/08/2024 Nicotine dependence, unspecified, uncomplicated (ICD-10 - F17.200) 01/03/2024 Bipolar 1 disorder (ICD-10 - F31.9) Pt reports that he is doing well on meds and does not want to make med changes at this time. Pt is requesting EMDR referral at this time. Will order lasb at next visti 01/03/2024 Depression (ICD-10 - F32.9) Pt denies SI/HI at this time. Reports that he is tolerating meds well at this time. Pt is requesting refill of his meds at this time. 07/12/2024 Medication monitoring encounter (ICD-10 - Z51.81) 07/30/2024 Medication monitoring encounter (ICD-10 - Z51.81) 09/26/2024 Compulsive behavior (ICD-10 - R46.89) 05/09/2024 Bipolar 1 disorder (ICD-10 - F31.9) Pt reports that the Oxcarbazepine was stopped when he was in the ER and has not noticed a difference since stopping med. Will not restart med at this time 08/14/2024 Medication monitoring encounter (ICD-10 - Z51.81) 08/21/2024 Medication monitoring encounter (ICD-10 - Z51.81) 09/03/2024 Medication monitoring encounter (ICD-10 - Z51.81) 08/07/2024 Medication monitoring encounter (ICD-10 - Z51.81) 11/02/2023 Bipolar 1 disorder (ICD-10 - F31.9) Pt reports that he is doing well on meds and does not want to make med changes at this time. Pt refuses therapy referral and refuses labs at this time. 07/11/2024 Medication monitoring encounter (ICD-10 - Z51.81) 03/06/2024 Depression (ICD-10 - F32.9) Pt denies SI/HI at this time. Reports that he is tolerating meds well at this time. Pt is requesting refill of his meds at this time. 11/02/2023 Depression (ICD-10 - F32.9) Pt denies SI/HI at this time. PHQ-9 score is 4 today; was 6 at last visit . 05/09/2024 Depression (ICD-10 - F32.9) Pt denies SI/HI at this time. Reports that he is tolerating meds well at this time. Pt is currnetly on [facility] 11/02/2023 Other Discussed treat ment planDiscussed sleep hygiene and caffeine intakeReturn to clinic 4 weeksObtain lab work at next visit; pt declines labs at tis timeEncouraged counselingDiscussed treatment plan; patient is agreeable and accepting of treatment plan. Patient denies further questions or concerns at this time. The Patient/Guardian asked appropriate questions, appeared to understand the answers, and decided to accept the treatment and continue being followed. 01/03/2024 Other Discussed treat ment planDiscussed sleep hygiene and caffeine intakeReturn to clinic 4 weeksObtain lab work at next visit Encouraged counselingDiscussed treatment plan; patient is agreeable and accepting of treatment plan. Patient denies further questions or concerns at this time. The Patient/Guardian asked appropriate questions, appeared to understand the answers, and decided to accept the treatment and continue being followed.The Patient/Guardian is aware of the need to contact the office or return for an earlier appointment if any problems or concerns arise. May also contact the 24-hour crisis hotline ([facility]), refer to the closest emergency room or call 911 if new symptoms arise of existing symptoms worsen; the Patient/Guardian is aware that this would apply to symptoms such as: suicidal ideation, homicidal ideation, high risk behaviors, manic symptoms, psychotic symptoms, physical symptoms, or any other symptoms that may be dangerous to self or others. 03/06/2024 Other Discussed treat ment planDiscussed sleep hygiene and caffeine intakeReturn to clinic 2 weeksObtain lab work at next visit Encouraged counselingDiscussed treatment plan; patient is agreeable and accepting of treatment plan. Patient denies further questions or concerns at this time. The Patient/Guardian asked appropriate questions, appeared to understand the answers, and decided to accept the treatment and continue being followed.The Patient/Guardian is aware of the need to contact the office or return for an earlier appointment if any problems or concerns arise. May also contact the 24-hour crisis hotline ([facility]), refer to the closest emergency room or call 911 if new symptoms arise of existing symptoms worsen; the Patient/Guardian is aware that this would apply to symptoms such as: suicidal ideation, homicidal ideation, high risk behaviors, manic symptoms, psychotic symptoms, physical symptoms, or any other symptoms that may be dangerous to self or others. 03/21/2024 Other 05/07/2024 Other Continue treatment as recommended by [facility] staff. Encouraged patient to obtain routine medical care with patient's own primary care provider or establish as a patient at [facility] if no current primary care provider. 05/09/2024 Other Discussed treatment planDiscussed sleep hygiene and caffeine intakeReturn to clinic 2 weeks Report given to Chantel CAMPA Obtain lab work at next visit Encouraged counselingDiscussed treatment plan; patient is agreeable and accepting of treatment plan. Patient denies further questions or concerns at this time. The Patient/Guardian asked appropriate questions, appeared to understand the answers, and decided to accept the treatment and continue being followed.The Patient/Guardian is aware of the need to contact the office or return for an earlier appointment if any problems or concerns arise. May also contact the 24-hour crisis hotline ([facility]), refer to the closest emergency room or call 911 if new symptoms arise of existing symptoms worsen; the Patient/Guardian is aware that this would apply to symptoms such as: suicidal ideation, homicidal ideation, high risk behaviors, manic symptoms, psychotic symptoms, physical symptoms, or any other symptoms that may be dangerous to self or others. Pt informed that this provider will be leaving [facility] as of 05/23/2024 and pt will be transitioned to a new provider at this time. 10/08/2024 Other Continue treatment as recommended by [facility] staff. Encouraged patient to obtain routine medical care with patient's own primary care provider or establish as a patient at [facility] if no current primary care provider. 10/08/2024 Other Gabriel engaged in the assessment willingly. He communicated openly with staff and indicated that his biggest challenges/triggers are other people as well as symptoms of Mavis. He indicated that alcohol is the only thing he can identify that helps with his symptoms but he recognizes that he will not be able to live well if he does not make a change. He indicated that he is very motivated to achieve and maintain sobriety. Gabriel indicated that he enjoys journalling and uses this as a coping skill. He stated he would like to focus on his own recovery and work the program. Gabriel is being transfered to [facility] for detox from alcohol prior to admission. Plan Of Treatment Next Appt Details Provider Name:Clementina Lynn, 0 10/15/2024 08:20:00 AM, [address] [place] [address], [id number], Provider Name:Jahaira johnson, 10/16/2024 09:20:00 AM, [address], [place], [phone], Insurance Providers Payer Name Payer Address Payer Phone Subscriber Number Group Number Insured Name Patient Relationship to Insured Coverage Start Date Coverage End Date [facility] [address] [place] [address] [id number] Nico Nichole Self - patient is the insured 3 3 [facility] [address] [place] [address] [id number] Dayanara Nico Self - patient is the insured 4 [facility] Attn Claims Department [address] [place] [address] [phone] [id number] Nico Nichole Self - patient is the insured 2 2 [employer] Att[employer] Claims Department [address] [place] [address] [phone] [id number] Nico Nichole Self - patient is the insured 2 2 [employer] Att[employer] Claims Department [address] [place] [address] [phone] [id number] Nico Nichole Self - patient is the insured 2 2 [employer] [address] [place] [address] [id number] Nico Nichole Self - patient is the insured 4 4 [employer] [address] [place] [address] [id number] Nico Nichole Self - patient is the insured 4 4 Medical (General) History Medical History History ICD Code Bipolar 1 Anxiety Depression Alcohol use disorder Gout Surgical History Surgery Date(Month/Year) typanostomy tubes childhood Child Hospitalization History Reason Date(Month/Year) ER for Gout attack 05/22 28 day rehab [place] February 2022 x2
--- OUTSIDE RECORDS SUMMARY | 2024-10-14 14:19 | XMS_ITS | Clinical Summary ---
Author Organization [facility] Address [address] [place] [address] Care Team Providers Care Dryer Feeder Name Role Phone Candelario Diamond MD Primary Care Provider [phone] Allergies No known active allergies Medications sertraline [...] Department Care Team Description 10/08/2024 10:41 PM PHOTOGRAPHIC COLORIST - 10/11/2024 9:40 AM PHOTOGRAPHIC COLORIST Hospital Encounter [address] [address] Cheng Hodgson MD Quaizar, Huzaifa, MD Sajjad, Sohaib, MD Alcohol withdrawal syndrome without complication (HCC) (Primary Dx) Discharge Disposition: Discharge to other rehab with plan readmit 09/14/2024 3:50 PM PHOTOGRAPHIC COLORIST - 09/14/2024 6:21 PM PHOTOGRAPHIC COLORIST Emergency [facility] Emergency Department [address] [place] [address] Dianne Noel MD Alcohol abuse (Primary Dx) Discharge Disposition: Discharge to home or self care 09/14/2024 Documentation [facility] [address] [place], [place] [phone] Shwetha Sandoval 09/10/2024 [facility] Initial Eligibility [facility] [address] [place], [place] [phone] Jose Almonte 08/30/2024 Telephone [facility] [address] [place], [place] [phone] Shwetha Sandoval from Last 3 Months Social History Tobacco Use Types Packs/Day Years Used Date Smoking Tobacco: Every Day Vaping Tobacco Cessation:Ready to Q uit: No; Counseling Given: Yes [facility] Utilities Answer Date Recorded In the [...] week 10/09/2024 How often do you attend [facility] ch or mosque services? Never 10/09/2024 Do you belong to any clubs o r organizations such as baptist groups, unions, fraternal or athletic groups, or [...] time in the past 12 m [facility], were you homeless or living in a [facility] (including now)? No 10/09/2024 Personal Safety Answer Date Recorded Have you ever been in or are you currently in a harmful physical or emotional relationship or is someone making you feel afraid or unsafe? Denies 10/08/2024 Sex and Gender Information Value Date Recorded Sex Assigned at Not on file Legal Sex Male 11:16 PM PHOTOGRAPHIC COLORIST Gender Identity Not on file Sexual Orientation Not on file Obstetrics History Last Filed Vital Signs Vital Sign Reading Time Taken Comments Blood Pressure 158/88 10/11/2024 8:20 AM PHOTOGRAPHIC COLORIST Pulse 59 10/11/2024 8:20 AM PHOTOGRAPHIC COLORIST Temperature 36.7 C (98.1 F) 10/11/2024 8:20 AM PHOTOGRAPHIC COLORIST Respiratory Rate 16 10/11/2024 8:30 AM PHOTOGRAPHIC COLORIST Oxygen Saturation 100% 10/11/2024 8:20 AM PHOTOGRAPHIC COLORIST Inhaled Oxygen Concentration - - Weight 67.1 kg (147 lb 14.9 oz) 025 10:03 AM PHOTOGRAPHIC COLORIST Height 177.8 cm (5' 10 ) 10/09/2024 10: 03 AM PHOTOGRAPHIC COLORIST Body Mass Index 21.23 10/09/2024 10:03 AM PHOTOGRAPHIC COLORIST Plan of Treatment Health Maintenance Due Date [...] Diagnosis Comments EGFR Routine 10/10/2024 5:50 AM PHOTOGRAPHIC COLORIST DIFFERENTIAL AUTO Routine 10/10/2024 5:5 0 AM PHOTOGRAPHIC COLORIST CBC WITH AUTO DIFFERENTIAL Routine 10/10/2024 5:50 AM PHOTOGRAPHIC COLORIST COMPREHENSIVE METABOLIC PANEL Routine 10/10/2024 5:50 AM PHOTOGRAPHIC COLORIST DRUGS OF ABUSE SCREEN, URINE WITHOUT CONFIRMATION STAT 10/08/2024 4:38 PM PHOTOGRAPHIC COLORIST URINALYSIS AND REFLEX TO MICROSCOPIC AND CULTURE STAT 10/08/2024 4:38 PM PHOTOGRAPHIC COLORIST EGFR STAT 10/08/2024 4:37 PM PHOTOGRAPHIC COLORIST DIFFERENTIAL AUTO STAT 10/08/2024 4:3 7 PM PHOTOGRAPHIC COLORIST PHOSPHORUS STAT 10/08/2024 4:37 PM PHOTOGRAPHIC COLORIST MAGNESIUM STAT 10/08/2024 4:37 PM PHOTOGRAPHIC COLORIST ETHANOL STAT 10/08/2024 4:37 PM PHOTOGRAPHIC COLORIST COMPREHENSIVE METABOLIC PANEL STAT 10/08/2024 4:37 PM PHOTOGRAPHIC COLORIST CBC WITH AUTO DIFFERENTIAL STAT 10/08/2024 4:37 PM PHOTOGRAPHIC COLORIST INFLUENZA A/B, RSV, AND COVID-19 PCR STAT 10/08/2024 4:37 PM PHOTOGRAPHIC COLORIST XR CHEST 1 VIEW ED 09/14/2024 5:00 PM PHOTOGRAPHIC COLORIST DRUGS OF ABUSE SCREEN, URINE WITHOUT CONFIRMATION STAT 09/14/2024 4:13 PM PHOTOGRAPHIC COLORIST INFLUENZA A/B, RSV, AND COVID-19 PCR Routine 09/14/2024 4:13 PM PHOTOGRAPHIC COLORIST URINALYSIS AND REFLEX TO MICROSCOPIC AND CULTURE STAT 09/14/2024 4:13 PM PHOTOGRAPHIC COLORIST LIPASE STAT 09/14/2024 1:19 PM PHOTOGRAPHIC COLORIST EGFR STAT 09/14/2024 1:19 PM PHOTOGRAPHIC COLORIST DIFFERENTIAL AUTO STAT 09/14/2024 1:1 9 PM PHOTOGRAPHIC COLORIST ETHANOL STAT 09/14/2024 1:19 PM PHOTOGRAPHIC COLORIST COMPREHENSIVE METABOLIC PANEL STAT 09/14/2024 1:19 PM PHOTOGRAPHIC COLORIST CBC WITH AUTO DIFFERENTIAL STAT 09/14/2024 1:19 PM PHOTOGRAPHIC COLORIST from Last 3 Months Results * eGFR (10/10/2024 5:50 AM PHOTOGRAPHIC COLORIST) eGFR >90 >=60 mL/min/1. 73 m2 Comment: [...] last reviewed 2021. Blood 10/10/2024 5:50 AM PHOTOGRAPHIC COLORIST 10/10/2024 6:00 AM PHOTOGRAPHIC COLORIST Cheng Hodgson MD LAB BLOOD ORDERABLES Final Result [facility] [address] [facility] Department [place] [address] * Differential, auto (10/10/2024 5:50 AM PHOTOGRAPHIC COLORIST) Neutrophil abs 5.3 1.5 - 6.5 K/cumm Imm gran abs 0.0 0.0 - 0.1 K/cumm [facility] Lymphocyte abs 2.3 0.8 - 3.3 K/cumm [facility] Monocyte abs 0.6 0.2 - 0.8 K/cumm [facility] Eosinophil abs 0.3 0.0 - 0.5 K/cumm [facility] Basophil abs 0.1 0.0 - 0.1 K/cumm [facility] Neutrophil pct 62.5 % [facility] Comment: Interpretive Data Percent cell count reference ranges are not reported, since discordance with absolute values may lead to misinterpretation of CBC data. Current Interpretive Data was last revised on 2017. Imm gran pct 0.2 % [facility] Comment: Interpretive Data Percent cell count reference ranges are not reported, since discordance with absolute values may lead to misinterpretation of CBC data. Current Interpretive Data was last revised on 2017. Lymphocyte pct 26.6 % [facility] Comment: Interpretive Data Percent cell count reference ranges are not reported, since discordance with absolute values may lead to misinterpretation of CBC data. Current Interpretive Data was last revised on 2017. Monocyte pct 6.7 % [facility] Comment: Interpretive Data Percent cell count reference ranges are not reported, since discordance with absolute values may lead to misinterpretation of CBC data. Current Interpretive Data was last revised on 2017. Eosinophil pct 3.4 % [facility] Comment: Interpretive Data Percent cell count reference ranges are not reported, since discordance with absolute values may lead to misinterpretation of CBC data. Current Interpretive Data was last revised on 2017. Basophil pct 0.6 % [facility] Comment: Interpretive Data Percent cell count reference ranges are not reported, since discordance with absolute values may lead to misinterpretation of CBC data. Current Interpretive Data was last revised on 2017. Blood 10/10/2024 5:50 AM PHOTOGRAPHIC COLORIST 10/10/2024 6:00 AM PHOTOGRAPHIC COLORIST Cheng Hodgson MD LAB BLOOD ORDERABLES Final Result [place] [id number] [facility] Department [place] [address] * CBC with auto differential (10/10/2024 5:50 AM PHOTOGRAPHIC COLORIST) WBC 8.5 3.8 - 9.9 K/cumm Hgb 14.9 13.0 - 17.5 g/dL [facility] Hct 44.0 38.9 - 50.3 % [facility] Plt 188 150 - 400 K/cumm [facility] MPV 11.6 9.1 - 12.3 fL [facility] RBC 4.78 4.30 - 5.80 M/cumm [facility] MCV 92.1 81.3 - 96.4 fL [facility] MCH 31.2 27.1 - 33.3 pg [facility] MCHC 33.9 32.3 - 35.7 g/dL [facility] RDW CV 13.2 11.1 - 14.9 % [facility] RDW SD 44.5 35.7 - 48.1 fL [facility] NRBC abs 0.00 0.00 - 0.01 K/cumm [facility] Blood 10/10/2024 5:50 AM PHOTOGRAPHIC COLORIST 10/10/2024 6:00 AM PHOTOGRAPHIC COLORIST Cheng Hodgson MD LAB BLOOD ORDERABLES Final Result Performing Organization Address City/State/[facility] Co [place] Phone Number PAULA [address] [facility] Department [place] [address] * (ABNORMAL) Comprehensive metabolic panel (10/10/2024 5:50 AM PHOTOGRAPHIC COLORIST) Sodium 138 135 - 145 mmol/L Potassium, pl 3.6 3.3 - 4.9 mmol/L [facility] Chloride 106 97 - 110 mmol/L [facility] CO2 21(L) 22 - 32 mmol/L [facility] Anion gap 11 2 - 15 mmol/L [facility] BUN 14 6 - 25 mg/dL [facility] Creatinine 1.02 0.80 - 1.30 mg/dL [facility] Glucose 131 70 - 199 mg/dL [facility] Comment: Interpretive Data Fasting glucose >/= 126 [...] 2022. Calcium 9.6 8.5 - 10.3 mg/dL [facility] Bilirubin, total 0.6 0.1 - 1.2 mg/dL [facility] Protein, pl 7.6 6.5 - 8.5 g/dL [facility] Albumin 4.4 3.5 - 5.0 g/dL [facility] Alk phos 91 40 - 130 Units/L [facility] ALT 24 7 - 55 Units/L [facility] AST 25 10 - 50 Units/L [facility] Blood 10/10/2024 5:50 AM PHOTOGRAPHIC COLORIST 10/10/2024 6:00 AM PHOTOGRAPHIC COLORIST Cheng Hodgson MD LAB BLOOD ORDERABLES Final Result Performing Organization Address City/State/[facility] de Phone Number PAULA [address] [place] [address] * Urinalysis reflex to microscopic and culture Urine (10/08/2024 4:38 PM PHOTOGRAPHIC COLORIST) Color, ur Yellow Yellow Clarity, ur Clear Clear [facility] Specific gravity, ur 1.019 1.003 - 1.030 [facility] pH, urine 5.5 [facility] Comment: Interpretive Data U rine pH is affected by diet, medications, systemic acid-base disturbances, and renal tubular function. pH may affect urinary stone formation. For example, urine pH below 6.0 may help reduce the tendency for calcium phosphate stones and pH greater than 6.0 may reduce the tendency for uric acid stone formation. Source: [facility] Current Interpretive Data was last revised on 2017 Protein, ur ql Negative Negative [facility] Glucose, ur ql Negative Negative [facility] Ketones, ur Negative Negative [facility] Bilirubin, ur Negative Negative [facility] Blood, ur Negative Negative [facility] Urobilinogen, ur <2.0 <2.0 mg/dL [facility] Nitrite, ur Negative Negative [facility] Leukocyte esterase, ur Negative Negative [facility] UA reflex comment Reflex conditions for microscopic UA and culture not met. [facility] Urine 10/08/2024 4:38 PM PHOTOGRAPHIC COLORIST 10/08/2024 4:41 PM PHOTOGRAPHIC COLORIST Lucinda ELIZABETH LAB MICROBIOLOGY - GENERAL O RDERABLES Final Result Performing Organization Address [facility] de Phone Number PAUAL [address] [place] [address] * (ABNORMAL) Drugs of Abuse Screen, Urine without Confirmation (10/08/2024 4:38 PM PHOTOGRAPHIC COLORIST) Amphetamine, ur Not Detected CutOff 500ng/mL Comment: Interpretive Data - Amphetamines: Samples containing greater than 500 ng/mL d-methamphetamine or other cross-reacting amphetamine compounds are reported as positive. Amphetamine immunoassays are subject to significant false positive rates due to cross-reactivity of non-amphetamine drugs. Confirmatory testing required for definitive results. Current Interpretive Data was last reviewed 2023. Barbiturates, ur Not Detected CutOff 200ng/mL [facility] Comment: Interpretive Data - Barbiturates: Samples containing greater than 200 ng/mL secobarbital or other cross-reacting barbiturate compounds are reported as positive. False positive and false negative results are possible. Confirmatory testing required for definitive results. Current Interpretive Data was last reviewed 2023. Benzodiazepines, ur Not Detected CutOff 100ng/mL [facility] Comment: Interpretive Data - Benzodiazepines: Samples containing greater than 100 ng/mL nordiazepam or other cross-reacting compounds are reported as positive. False positive and false negative results are possible. Confirmatory testing required for definitive results. Current Interpretive Data was last reviewed 2023. Cannabinoids, ur Screen Positive, presumptive (A) CutOff 50 ng/mL [facility] Comment: Interpretive Data - Cannabinoids: Samples containing greater than 50 ng/mL delta-9 THC -COOH or other cross- reacting compounds are reported as positive. False positive and false negative results are possible. Confirmatory testing required for definitive results. Current Interpretive Data was last reviewed 2023. Cocaine, ur Not Detected CutOff 150ng/mL [facility] Comment: Interpretive Data - Cocaine: Samples containing greater than 150 ng/mL benzoylecgonine or other cross- reacting compounds are reported as positive. False positive and false negative results are possible. Confirmatory testing required for definitive results. Current Interpretive Data was last reviewed 2023. Fentanyl, Ur Not Detected CutOff 5 ng/mL [facility] Comment: Interpretive Data - Fentanyl: Samples containing greater than 5 ng/mL norfentanyl, fentanyl, or other cross-reacting fentanyl compounds are reported as positive. False positive and false negative results are possible. Confirmatory testing required for definitive results. Current Interpretive Data was last reviewed 2023. Methadone, ur Not Detected CutOff 300ng/mL [facility] Comment: Interpretive Data - Methadone: Samples containing greater than 300 ng/mL d,l-methadone or other cross-reacting compounds are reported as positive. False positive and false negative results are possible. Confirmatory testing required for definitive results. Current Interpretive Data was last reviewed 2023. Opiates, ur Not Detected CutOff 300ng/mL [facility] Comment: Interpretive Data - Opiates: Samples containing [...] revised on 2017. Urine 10/08/2024 4:38 PM PHOTOGRAPHIC COLORIST 10/08/2024 4:41 PM PHOTOGRAPHIC COLORIST Narrative [facility] - 10/08/2024 5:07 PM PHOTOGRAPHIC COLORIST Drug of Abuse screening is performed by immunoassay for medical purposes only. This is not to be used for Pain Management purposes. Lucinda ELIZABETH LAB URINE ORDERABLES Final R esult [facility] [address] [facility] Department [place] [address] * Influenza A/B, RSV, and COVID-19 PCR Nasopharyngeal (10/08/2024 4:37 PM PHOTOGRAPHIC COLORIST) COVID-19 RNA Negative Negative Influenza A RNA Negative Negative [facility] Influenza B RNA Negative Negative [facility] RSV RNA Negative Negative [facility] Comment: Interpretive data: Testing performed by [facility]. This test is performed using the Cepheid Xpert Xpress CoV-2/Flu/RSV plus assay. This is a multiplex, real-time reverse transcriptase PCR assay intended for the qualitative detection of nucleic acid from SARS-CoV-2, influenza A, influenza B, and respiratory syncytial virus. This assay has been cleared by the [place] Food and Drug administration. The performance characteristics have been verified by the [facility]. Results must be considered in the clinical context, and a negative result does not rule out infection. Interpretive Data last revised 2023 Nasopharyngeal 10/08/2024 4: 37 PM PHOTOGRAPHIC COLORIST 10/08/2024 4:41 PM PHOTOGRAPHIC COLORIST Narrative [facility] - 10/08/2024 5:29 PM PHOTOGRAPHIC COLORIST Is the Patient experiencing symptoms consistent with COVID?->Yes us Lucinda ELIZABETH LAB MICROBIOLOGY - GENERAL O RDERABLES Final Result [facility] [address] [facility] Department [place] [address] * eGFR (10/08/2024 4:37 PM PHOTOGRAPHIC COLORIST) eGFR >90 >=60 mL/min/1. 73 m2 Comment: [...] last reviewed 2021. Blood 10/08/2024 4:37 PM PHOTOGRAPHIC COLORIST 10/08/2024 4:41 PM PHOTOGRAPHIC COLORIST us Lucinda ELIZABETH LAB BLOOD ORDERABLES Final R esult [facility] [address] [facility] Department [place] [address] * Differential, auto (10/08/2024 4:37 PM PHOTOGRAPHIC COLORIST) Pathologist [facility] Neutrophil abs 4.8 1.5 - 6.5 K/cumm Imm gran abs 0.1 0.0 - 0.1 K/cumm [facility] Lymphocyte abs 2.0 0.8 - 3.3 K/cumm [facility] Monocyte abs 0.4 0.2 - 0.8 K/cumm [facility] Eosinophil abs 0.2 0.0 - 0.5 K/cumm [facility] Basophil abs 0.1 0.0 - 0.1 K/cumm [facility] Neutrophil pct 64.4 % [facility] Comment: Interpretive Data Percent cell count reference ranges are not reported, since discordance with absolute values may lead to misinterpretation of CBC data. Current Interpretive Data was last revised on 2017. Imm gran pct 0.7 % [facility] Comment: Interpretive Data Percent cell count reference ranges are not reported, since discordance with absolute values may lead to misinterpretation of CBC data. Current Interpretive Data was last revised on 2017. Lymphocyte pct 26.2 % [facility] Comment: Interpretive Data Percent cell count reference ranges are not reported, since discordance with absolute values may lead to misinterpretation of CBC data. Current Interpretive Data was last revised on 2017. Monocyte pct 5.7 % [facility] Comment: Interpretive Data Percent cell count reference ranges are not reported, since discordance with absolute values may lead to misinterpretation of CBC data. Current Interpretive Data was last revised on 2017. Eosinophil pct 2.1 % [facility] Comment: Interpretive Data Percent cell count reference ranges are not reported, since discordance with absolute values may lead to misinterpretation of CBC data. Current Interpretive Data was last revised on 2017. Basophil pct 0.9 % [facility] Comment: Interpretive Data Percent cell count reference ranges are not reported, since discordance with absolute values may lead to misinterpretation of CBC data. Current Interpretive Data was last revised on 2017. Blood 10/08/2024 4:37 PM PHOTOGRAPHIC COLORIST 10/08/2024 4:41 PM PHOTOGRAPHIC COLORIST Lucinda ELIZABETH LAB BLOOD ORDERABLES Final R esult Performing Organization Address [facility] Co de Phone Number PAULA [address] [place] [address] * CBC with auto differential (10/08/2024 4:37 PM PHOTOGRAPHIC COLORIST) Pathologist [facility] WBC 7.5 3.8 - 9.9 K/cumm Hgb 15.8 13.0 - 17.5 g/dL [facility] Hct 45.7 38.9 - 50.3 % [facility] Plt 227 150 - 400 K/cumm [facility] MPV 11.6 9.1 - 12.3 fL [facility] RBC 5.09 4.30 - 5.80 M/cumm [facility] MCV 89.8 81.3 - 96.4 fL [facility] MCH 31.0 27.1 - 33.3 pg [facility] MCHC 34.6 32.3 - 35.7 g/dL [facility] RDW CV 13.1 11.1 - 14.9 % [facility] RDW SD 43.1 35.7 - 48.1 fL [facility] NRBC abs 0.00 0.00 - 0.01 K/cumm [facility] Blood 10/08/2024 4:37 PM PHOTOGRAPHIC COLORIST 10/08/2024 4:41 PM PHOTOGRAPHIC COLORIST Lucinda ELIZABETH LAB BLOOD ORDERABLES Final R esult Performing Organization Address [facility] Co de Phone Number PAULA [address] [place] [address] * (ABNORMAL) Phosphorus (10/08/2024 4:37 PM PHOTOGRAPHIC COLORIST) Pathologist [facility] Phosphorus, pl 2.1(L) 2.3 - 4.5 mg/dL Blood 10/08/2024 4:37 PM PHOTOGRAPHIC COLORIST 10/08/2024 4:41 PM PHOTOGRAPHIC COLORIST Lucinda ELIZABETH LAB BLOOD ORDERABLES Final R esult Performing Organization Address [facility] Co de Phone Number PAULA [address] [place] [employer] [place] [address] * Magnesium (10/08/2024 4:37 PM PHOTOGRAPHIC COLORIST) Magnesium 2.2 1.4 - 2.5 mg/dL Blood 10/08/2024 4:37 PM PHOTOGRAPHIC COLORIST 10/08/2024 4:41 PM PHOTOGRAPHIC COLORIST Lucinda ELIZABETH LAB BLOOD ORDERABLES Final R [facility] Performing Organization Address [facility] de Phone Number [id number] [place] [address] * (ABNORMAL) Ethanol (10/08/2024 4:37 PM PHOTOGRAPHIC COLORIST) Ethanol 42(H) <=10 mg/dL Comment: Interpretive Data Legal limit of intoxication > or = 80 mg/dL Levels > or = 400 mg/dL are potentially TOXIC. Current interpretive data was last revised on 2018. Blood 10/08/2024 4:37 PM PHOTOGRAPHIC COLORIST 10/08/2024 4:41 PM PHOTOGRAPHIC COLORIST Lucinda ELIZABETH LAB BLOOD ORDERABLES Final R esult Performing Organization Address [facility] Co de Phone Number LUCIO[address] [place] [address] * Comprehensive metabolic panel (10/08/2024 4:37 PM PHOTOGRAPHIC COLORIST) Sodium 139 135 - 145 mmol/L Potassium, pl 3.8 3.3 - 4.9 mmol/L [facility] Comment:Hemolyzed; Potassium value may be falsely elevated by as much as 1.0 mmol/L. Suggest redraw and reanalysis. Chloride 101 97 - 110 mmol/L [facility] CO2 24 22 - 32 mmol/L [facility] Anion gap 14 2 - 15 mmol/L [facility] BUN 11 6 - 25 mg/dL [facility] Creatinine 1.03 0.80 - 1.30 mg/dL [facility] Glucose 111 70 - 199 mg/dL [facility] Comment: Interpretive Data Fasting glucose >/= 126 [...] 2022. Calcium 9.8 8.5 - 10.3 mg/dL [facility] Bilirubin, total 0.5 0.1 - 1.2 mg/dL [facility] Protein, pl 8.2 6.5 - 8.5 g/dL [facility] Albumin 4.7 3.5 - 5.0 g/dL [facility] Alk phos 94 40 - 130 Units/L [facility] ALT 30 7 - 55 Units/L [facility] AST See Comment 10 - 50 [facility] Comment:Credited; Hemolyzed Specimen Blood 10/08/2024 4:37 PM PHOTOGRAPHIC COLORIST 10/08/2024 4:41 PM PHOTOGRAPHIC COLORIST Lucinda ELIZABETH LAB BLOOD ORDERABLES Final [facility] [address] [facility] Department [place] [address] * XR Chest 1 Vw Portable (09/14/2024 5:00 PM PHOTOGRAPHIC COLORIST) Anatomical Region Laterality Modality Body, Chest N/A Computed Radiogr aphy 09/14/2024 5:43 PM PHOTOGRAPHIC COLORIST Narrative 09/14/2024 5:44 PM PHOTOGRAPHIC COLORIST EXAM DESCRIPTION: XR CHEST 1 VIEW REASON [...] signed by Candelario RODRIGUEZ: MICHAEL Report ID: [id number] Reading Location: [place] [address] Procedure Note Candelario Ponce MD - 09/14/2024 [...] Candelario Ponce M.D. KH: MICHAEL Report ID: [id number] Reading Location: [id number] Dianne Noel MD IMG XR PROCEDURES F inal Result * Influenza A/B, RSV, and COVID-19 PCR Nasopharyngeal (09/14/2024 4:13 PM PHOTOGRAPHIC COLORIST) COVID-19 RNA Negative Negative Influenza A RNA Negative Negative [facility] ([place]) Influenza B RNA Negative Negative [facility] ([place]) RSV RNA Negative Negative [facility] ([place]) Comment: Interpretive data: Testing performed by [facility]. This test is performed using the [employer] Xpert Xpress CoV-2/Flu/RSV plus assay. This is a multiplex, real- time reverse transcriptase PCR assay intended for the qualitative detection of nucleic acid from SARS-CoV-2, influenza A, influenza B, and respiratory syncytial virus. This assay has been cleared by the [place] Food and Drug administration. The performance characteristics have been verified by the [facility]. Results must be considered in the clinical context, and a negative result does not rule out infection. Interpretive Data last revised 2023 Nasopharyngeal 09/14/2024 4: 13 PM PHOTOGRAPHIC COLORIST 09/14/2024 4:19 PM PHOTOGRAPHIC COLORIST Narrative [facility] ([place]) - 09/14/2024 5:01 PM PHOTOGRAPHIC COLORIST Is the Patient experiencing symptoms consistent with COVID?->Yes Dianne Noel MD LAB MICROBIOLOGY - GENERAL ORDERABLES Final Result [facility] ([place]) [address] [facility] Department of Laboratories [place], [place] [id number] * Urinalysis reflex to microscopic and culture Urine (09/14/2024 4:13 PM PHOTOGRAPHIC COLORIST) Color, ur Yellow Yellow Clarity, ur Clear Clear PAULA A ([place]) Specific gravity, ur 1.011 1.003 - 1.030 [facility] ([place]) pH, urine 5.5 [facility] ([place]) Comment: Interpretive Data U rine pH is affected by diet, medications, systemic acid-base disturbances, and renal tubular function. pH may affect urinary stone formation. For example, urine pH below 6.0 may help reduce the tendency for calcium phosphate stones and pH greater than 6.0 may reduce the tendency for uric acid stone formation. Source: [facility] Current Interpretive Data was last revised on [...] [facility] ([place]) Urine 09/14/2024 4:13 PM PHOTOGRAPHIC COLORIST 09/14/2024 4:19 PM PHOTOGRAPHIC COLORIST us Dianne Noel MD LAB MICROBIOLOGY - GENERAL ORDERABLES Final Result PAULA DELL ([place]) [address] [facility] Department [place] [address] * (ABNORMAL) Drugs of Abuse Screen, Urine without Confirmation (09/14/2024 4:13 PM PHOTOGRAPHIC COLORIST) Amphetamine, ur Not Detected CutOff 500ng/mL Comment: [...] revised on 2017. Urine 09/14/2024 4:13 PM PHOTOGRAPHIC COLORIST 09/14/2024 4:19 PM PHOTOGRAPHIC COLORIST Narrative PAULA SHARPE ([place]) - 09/14/2024 4:44 PM PHOTOGRAPHIC COLORIST Drug of Abuse screening is performed by immunoassay for medical purposes only. This is not to be used for Pain Management purposes. us David Sargent MD LAB URINE ORDERABLE S Final Result PAULA [facility] ([place]) [address] [facility] Department [place] [address] * eGFR (09/14/2024 1:19 PM PHOTOGRAPHIC COLORIST) eGFR >90 >=60 mL/min/1. 73 m2 Comment: [...] last reviewed 2021. Blood 09/14/2024 1:19 PM PHOTOGRAPHIC COLORIST 09/14/2024 1:22 PM PHOTOGRAPHIC COLORIST us David Sargent MD LAB BLOOD ORDERABLE S Final Result [facility] ([place] [address] [facility] Department [place] [address] * Differential, auto (09/14/2024 1:19 PM PHOTOGRAPHIC COLORIST) Neutrophil abs 2.6 1.5 - 6.5 K/cumm [...] revised on 2017. Blood 09/14/2024 1:19 PM PHOTOGRAPHIC COLORIST 09/14/2024 1:22 PM PHOTOGRAPHIC COLORIST us David Sargent MD LAB BLOOD ORDERABLE S Final Result [facility] ([place]) [address] [facility] Department [place] [address] * CBC with auto differential (09/14/2024 1:19 PM PHOTOGRAPHIC COLORIST) WBC 5.4 3.8 - 9.9 K/cumm Hgb [...] [facility] ([place]) Blood 09/14/2024 1:19 PM PHOTOGRAPHIC COLORIST 09/14/2024 1:22 PM PHOTOGRAPHIC COLORIST us David Sargent MD LAB BLOOD ORDERABLE S Final Result Performing Organization Address City/[facility] Co de Phone Number PAULA SHARPE ([place]) 1 [facility] [place] [address] * Lipase (09/14/2024 1:19 PM PHOTOGRAPHIC COLORIST) Lipase 18 10 - 99 Units/L Blood 09/14/2024 1:19 PM PHOTOGRAPHIC COLORIST 09/14/2024 4:09 PM PHOTOGRAPHIC COLORIST Dianne Noel MD LAB BLOOD ORDERABLE S Final Result Performing Organization Address [facility] de Phone Number PAULA SHARPE ([place]) 1 [facility] [place] [address] * (ABNORMAL) Ethanol (09/14/2024 1:19 PM PHOTOGRAPHIC COLORIST) Ethanol 121(H) <=10 mg/dL Comment: Interpretive Data Legal limit of intoxication > or = 80 mg/dL Levels > or = 400 mg/dL are potentially TOXIC. Current interpretive data was last revised on 2018. Blood 09/14/2024 1:19 PM PHOTOGRAPHIC COLORIST 09/14/2024 1:22 PM PHOTOGRAPHIC COLORIST David Sargent MD LAB BLOOD ORDERABLE S Final Result Performing Organization Address [facility] Co de Phone Number PAULA SHARPE ([place]) [address] Department [place] [address] * (ABNORMAL) Comprehensive metabolic panel (09/14/2024 1:19 PM PHOTOGRAPHIC COLORIST) Sodium 137 135 - 145 mmol/L Potassium, [...] [facility] ([place]) Blood 09/14/2024 1:19 PM PHOTOGRAPHIC COLORIST 09/14/2024 1:22 PM PHOTOGRAPHIC COLORIST us David Sargent MD LAB BLOOD ORDERABLE S Final Result [facility] ([place]) [address] [facility] Department [place] [address] from Last 3 Months Insurance [employer] [place] [place] Advance Directives For more information, please contact: [phone] * Full Code (Latest Code Status on File) Date Activated Date Inactivated Comments 10/09/2024 12:43 PM 10/11/2024 1:46 PM * Full Code Date Activated Date Inactivated Comments 07/02/2024 2:00 PM 07/04/2024 7:55 PM * Full Code Date Activated Date Inactivated Comments 05/02/2024 2:34 PM 05/04/2024 5:37 PM Care Teams Dryer Feeder Relationship Specialty Start Date End Date Candelario Diamond MD [address] [facility] [place] [address] PCP - General Internal Medicine 05/09/24
--- OUTSIDE RECORDS SUMMARY | 2024-10-14 14:19 | XMS_ITS | Clinical Summary ---
Author Organization [facility] Address [address] [place] [address] Care Team Providers Care Nursing Associate Name Role Phone Provider, None Primary Care [...] Type Department Care Team Description 08/04[facility] [address] [place] [phone] Matthieu Montano APRN, CNP Appointment 08/04/2024 Telephone [facility] [address] [place] [phone] Matthieu Montano APRN, CNP 08/03/2024 Travel from Last 3 Months Immunizations Immunization Administration Dates Next Due Covid-19, Mrna, Lnp-s, Pf, 30 Mcg/0.3 Ml Dose (P elijah) 07/14/2021 Social History Tobacco Use Types Packs/Day Years Used Date Smoking Tobacco: Never Assessed [facility] Utilities Answer Date Recorded In the past 12 months has [employer] electric, gas, oil, or water company threatened [...] often do you attend chur ch or episcopalian services? More than 4 times per year 08/03/2024 Do you belong to any clubs o r organizations such as hindu groups, unions, fraternal or athletic groups, or [...] and heating? Not hard at all 08/03/2024 [facility] of Occupat ional Health - Occupational Stress [...] any time in the past 12 m [facility], were you homeless or living in a detention (including now)? No 08/03/2024 Sex and Gender Information Value Date Recorded Sex Assigned at Male 08/08/2024 12:53 PM PRODUCT EXAMINER Legal Sex Male 2:53 PM PRODUCT EXAMINER Gender Identity Male 08/08/2024 12:53 PM PRODUCT EXAMINER Sexual Orientation Not on file Last Filed Vital Signs Vital Sign Reading Time Taken Comments Blood Pressure 105/62 08/06/2024 5:40 AM PRODUCT EXAMINER Pulse 55 08/06/2024 5:40 AM PRODUCT EXAMINER Temperature 36.8 C (98.2 F) 08/06/2024 5:40 AM PRODUCT EXAMINER Respiratory Rate 16 08/06/2024 5:40 AM PRODUCT EXAMINER Oxygen Saturation 99% 08/06/2024 5:40 AM PRODUCT EXAMINER Inhaled Oxygen Concentration - - Weight 63.5 kg (140 lb) 08/03/2024 2:15 PM PRODUCT EXAMINER Height 175.3 cm (5' 9 ) 08/03/2024 2:15 PM PRODUCT EXAMINER Body Mass Index 20.67 08/03/2024 2:15 PM PRODUCT EXAMINER Plan of Treatment Health Maintenance Due Date [...] WITH AUTO DIFFERENTIAL Routine 08/03/2024 2:25 PM PRODUCT EXAMINER AMYLASE Routine 08/03/2024 2:25 PM PRODUCT EXAMINER MAGNESIUM (MG) Routine 08/03/2024 2:25 PM PRODUCT EXAMINER PHOSPHORUS (PO4) Routine 08/03/2024 2:25 PM PRODUCT EXAMINER LIPASE Routine 08/03/2024 2:25 PM PRODUCT EXAMINER ETHYL ALCOHOL (ETHANOL) Routine 08/03/2024 2:25 PM PRODUCT EXAMINER PROTIME (PT) (PROTHROMBIN TIME) Routine 08/03/2024 2:25 PM PRODUCT EXAMINER CMP (COMPREHENSIVE METABOLIC PANEL) Routine 08/03/2024 2:25 PM PRODUCT EXAMINER COMPLETE BLOOD COUNT (CBC) WITH DIFF Routine 08/03/2024 2:25 PM PRODUCT EXAMINER URINALYSIS (UA) MACROSCOPIC Routine 08/03/2024 2:03 PM PRODUCT EXAMINER URINE DRUG SCREEN Routine 08/03/2024 2:0 3 PM PRODUCT EXAMINER from Last 3 Months Results * (ABNORMAL) CBC with Auto Differential (08/03/2024 2:25 PM PRODUCT EXAMINER) WBC 6.70 4.00 - 12.00 10(3)/mcL 08/03/2024 2:36 PM PRODUCT EXAMINER [facility] RBC 5.12 4.40 - 5.80 10(6)/mcL 08/03/2024 2:36 PM PRODUCT EXAMINER [facility] HEMOGLOBIN (HGB) 15.9 13.0 - 16.5 g/dL 08/03/2024 2:36 PM PRODUCT EXAMINER [facility] HEMATOCRIT (HCT) 47.0 38.0 - 50.0 % 08/03/2024 2:36 PM PRODUCT EXAMINER [facility] MCV 91.8 82.0 - 96.0 fL 08/03/2024 2:36 PM PRODUCT EXAMINER [facility] MCH 31.1 26.0 - 32.0 pg 08/03/2024 2:36 PM PRODUCT EXAMINER [facility] MCHC 33.8 31.0 - 36.0 g/dL 08/03/2024 2:36 PM PRODUCT EXAMINER [facility] PLATELET COUNT 242 140 - 440 10(3)/mcL 08/03/2024 2:36 PM PRODUCT EXAMINER [facility] RDW 13.2 11.8 - 15.5 % 08/03/2024 2:36 PM PRODUCT EXAMINER [facility] MPV 11.4 8.0 - 12.6 fL 08/03/2024 2:36 PM PRODUCT EXAMINER [facility] NEUTROPHILS 57.5 40.0 - 68.0 % 08/03/2024 2:36 PM PRODUCT EXAMINER [facility] LYMPHOCYTES 31.8 19.0 - 49.0 % 08/03/2024 2:36 PM PRODUCT EXAMINER [facility] MONOCYTES 4.8 3.0 - 13.0 % 08/03/2024 2:36 PM PRODUCT EXAMINER [facility] EOSINOPHILS 4.6 0.0 - 8.0 % 08/03/2024 2:36 PM PRODUCT EXAMINER [facility] BASOPHILS 1.3(H) 0.0 - 1.0 % 08/03/2024 2:36 PM PRODUCT EXAMINER [facility] ABSOLUTE NEUTROPHILS 3.85 1.40 - 5.30 10(3)/[facility] 08/03/2024 2:36 PM PRODUCT EXAMINER [facility] ABSOLUTE LYMPHOCYTES 2.13 0.90 - 3.30 10(3)/[facility] 08/03/2024 2:36 PM PRODUCT EXAMINER [facility] ABSOLUTE MONOCYTES 0.32 0.10 - 0.90 10(3)/[facility] 08/03/2024 2:36 PM PRODUCT EXAMINER [facility] ABSOLUTE EOSINOPHIL 0.31 0.00 - 0.50 10(3)/[facility] 08/03/2024 2:36 PM PRODUCT EXAMINER [facility] ABSOLUTE BASOPHILS 0.09 0.00 - 0.10 10(3)/[facility] 08/03/2024 2:36 PM PRODUCT EXAMINER [facility] NRBC PER 100 WBC 0 08/03/20 2:36 PM PRODUCT EXAMINER [facility] Blood Venipuncture / Unknown 08/03/2024 2:25 PM PRODUCT EXAMINER 08/03/2024 2:33 PM PRODUCT EXAMINER us Sherrell Bai MD HEMATOLOGY ORDERABLES Final R esult [facility] [address] [place] [address] * PROTIME (PT) (PROTHROMBIN TIME) (08/03/2024 2:25 PM PRODUCT EXAMINER) PROTIME-PATIENT 13.0 11.6 - 14.8 sec 08/03/2024 3:11 PM PRODUCT EXAMINER [facility] INR 1.0 0.9 - 1.2 08/03/2024 3:11 PM PRODUCT EXAMINER [facility] Comment: Therapeutic Ranges INR = 2.0-3.0: Venous thromb, atrial fib, pul embolism, tissue heart valve, ami. INR = 2.5-3.5: Mechanical heart valve Critical value for INR is >/= 4.5 Blood Venipuncture / Unknown 08/03/2024 2:25 PM PRODUCT EXAMINER 08/03/2024 2:33 PM PRODUCT EXAMINER Sherrell Bai MD HEMATOLOGY ORDERABLES Final R esult Performing Organization Address City/[facility]/ZIP Co de Phone Number [facility] [address] [place] [address] * (ABNORMAL) PHOSPHORUS (PO4) (08/03/2024 2:25 PM PRODUCT EXAMINER) Pathologist [facility] PHOSPHORUS 2.2(L) 2.5 - 4.5 mg/dL 08/03/2024 2:54 PM PRODUCT EXAMINER [facility] Blood Venipuncture / Unknown 08/03/2024 2:25 PM PRODUCT EXAMINER 08/03/2024 2:33 PM PRODUCT EXAMINER Sherrell Bai MD CHEMISTRY ORDERABLES Final Re sult [facility] [address] [place] [address] * MAGNESIUM (MG) (08/03/2024 2:25 PM PRODUCT EXAMINER) Pathologist [facility] MAGNESIUM 2.3 1.6 - 2.6 mg/dL 08/03/2024 2:54 PM PRODUCT EXAMINER [facility] Blood Venipuncture / Unknown 08/03/2024 2:25 PM PRODUCT EXAMINER 08/03/2024 2:33 PM PRODUCT EXAMINER Sherrell Bai MD CHEMISTRY ORDERABLES Final Re sult Performing Organization Address City/[facility]/ZIP Co de Phone Number [facility] [address] [place] [address] * Lipase (08/03/2024 2:25 PM PRODUCT EXAMINER) LIPASE 14 8 - 78 U/L 08/03/2024 2:54 PM PRODUCT EXAMINER [facility] Blood Venipuncture / Unknown 08/03/2024 2:25 PM PRODUCT EXAMINER 08/03/2024 2:33 PM PRODUCT EXAMINER Sherrell Bai MD CHEMISTRY ORDERABLES Final Re sult Performing Organization Address [facility] Co de Phone Number [facility] [address] [place] [address] * (ABNORMAL) Ethyl Alcohol (Ethanol) (08/03/2024 2:25 PM PRODUCT EXAMINER) ETHANOL 184(H) <10 mg/dL 08/03/2024 2:54 PM PRODUCT EXAMINER [facility] Blood Venipuncture / Unknown 08/03/2024 2:25 PM PRODUCT EXAMINER 08/03/2024 2:33 PM PRODUCT EXAMINER Sherrell Bai MD CHEMISTRY ORDERABLES Final Re sult Performing Organization Address [facility] Co de Phone Number [facility] [address] [place] [address] * (ABNORMAL) CMP (Comprehensive Metabolic Panel) (08/03/2024 2:25 PM PRODUCT EXAMINER) SODIUM 142 136 - 145 mmol/L 08/03/2024 2:54 PM PRODUCT EXAMINER [facility] POTASSIUM 3.5 3.5 - 5.1 mmol/L 08/03/2024 2:54 PM [facility] CHLORIDE 107 98 - 107 mmol/L 08/03/2024 2:54 PM [facility] CO2, VENOUS 22 22 - 30 mmol/L 08/03/2024 2:54 PM [facility] ANION GAP 16.5 <18.0 mmol/L 08/03/2024 2:54 PM [facility] GLUCOSE 87 70 - 99 mg/dL 08/03/2024 2:54 PM [facility] BUN 10 9 - 21 mg/dL 08/03/2024 2:54 PM [facility] CREATININE, BLOOD 0.96 0.70 - 1.30 mg/dL 08/03/2024 2:54 PM [facility] BUN/CREATININE RATIO 10(L) 12 - 20 ratio 08/03/2024 2:54 PM [facility] TOTAL PROTEIN 8.4(H) 6.3 - 8.2 g/dL 08/03/2024 2:54 PM [facility] ALBUMIN 4.9 3.5 - 5.0 g/dL 08/03/2024 2:54 PM [facility] A/G RATIO 1.4 1.0 - 2.2 08/03/2024 2:54 PM [facility] CALCIUM 9.4 8.7 - 10.5 mg/dL 08/03/2024 2:54 PM [facility] T BILI 0.5 0.2 - 1.2 mg/dL 08/03/2024 2:54 PM [facility] SGOT (AST) 22 5 - 34 U/L 08/03/2024 2:54 PM [facility] SGPT (ALT) 19 0 - 55 U/L 08/03/2024 2:54 PM [facility] ALKALINE PHOSPHATASE 84 40 - 150 U/L 08/03/2024 2:54 PM [facility] GFR, ESTIMATED >60 >=60 08/03/2024 2:54 PM PRODUCT EXAMINER [facility] Comment: Creatinine Clearance is the preferred criteria for selecting drug dose adjustments in renally impaired patients. The GFR is provided as additional pertinent clinical information. GFR is reported in mL/min/1.73 sq m. Calculation based on the Chronic Kidney Disease Epidemiology Collaboration (CKD- EPI) equation refit without adjustment for race. GFR, EST. >60 >=60 024 2:54 PM PRODUCT EXAMINER [facility] GFR, EST. NONAFRICAN >60 >=60 08/03/2024 2:54 PM PRODUCT EXAMINER [facility] Blood Venipuncture / Unknown 08/03/2024 2:25 PM PRODUCT EXAMINER 08/03/2024 2:33 PM PRODUCT EXAMINER Sherrell Bai MD CHEMISTRY ORDERABLES Final Re sult Performing Organization Address [facility]/ZIP Co de Phone Number [facility] [address] [place] [address] * Amylase (08/03/2024 2:25 PM PRODUCT EXAMINER) AMYLASE 71 25 - 125 U/L 08/03/2024 2:54 PM PRODUCT EXAMINER [facility] Blood Venipuncture / Unknown 08/03/2024 2:25 PM PRODUCT EXAMINER 08/03/2024 2:33 PM PRODUCT EXAMINER Sherrell Bai MD CHEMISTRY ORDERABLES Final Re sult Performing Organization Address [facility] Co de Phone Number [facility] [address] [place] [address] * Urinalysis (Ua) Macroscopic (08/03/2024 2:03 PM PRODUCT EXAMINER) SPECIFIC GRAVITY 1.005 1.003 - 1.030 08/03/2024 2:24 PM PRODUCT EXAMINER [facility] URINE PH 6.0 5.0 - 9.0 08/03/2024 2:24 PM PRODUCT EXAMINER [facility] WBC ESTERASE Negative Negative 08/03/2024 2:24 PM PRODUCT EXAMINER [facility] NITRITE Negative Negative 08/03/2024 2:24 PM PRODUCT EXAMINER [facility] PROTEIN, RANDOM URINE Negative Negative 08/03/2024 2:24 PM PRODUCT EXAMINER [facility] URINE GLUCOSE, QUAL Negative Negative 08/03/2024 2:24 PM PRODUCT EXAMINER [facility] URINE KETONES Negative Negative 08/03/2024 2:24 PM PRODUCT EXAMINER [facility] UROBILINOGEN Normal Normal mg/dL 08/03/2024 2:24 PM PRODUCT EXAMINER [facility] URINE BLOOD Negative Negative gretel/ul 08/03/2024 2:24 PM PRODUCT EXAMINER [facility] URINALYSIS COLOR Yellow 08/03/20 2:24 PM PRODUCT EXAMINER [facility] URINALYSIS CLARITY Clear 08/03/2024 2:24 PM PRODUCT EXAMINER [facility] Urine Non-Phlebotomy Collection / Unknown 08/03/2024 2:03 PM PRODUCT EXAMINER 08/03/2024 2:09 PM PRODUCT EXAMINER Sherrell Bai MD URINE ORDERABLES Final Result [facility] [address] [place] [address] * (ABNORMAL) Urine Drug Screen (08/03/2024 2:03 PM PRODUCT EXAMINER) UR AMPHETAMINE NON DETECTED NON DETECTED 08/03/2024 3:14 PM PRODUCT EXAMINER [facility] Comment: FOR MEDICAL USE ONLY. CUTOFF CONCENTRATION FOR DETECTED RESULT: AMPHETAMINE: 500 NG/ML UR BENZODIAZEPINES NON DETECTED NON DETECTED 08/03/2024 3:14 PM PRODUCT EXAMINER [facility] Comment: FOR MEDICAL USE ONLY. CUTOFF CONCENTRATION FOR DETECTED RESULT: BENZODIAZAPINE: 200 NG/ML UR COCAINE METABOLITE NON DETECTED NON DETECTED 08/03/2024 3:14 PM PRODUCT EXAMINER [facility] Comment: FOR MEDICAL USE ONLY. CUTOFF CONCENTRATION FOR DETECTED RESULT: COCAINE: 150 NG/ML UR OPIATES NON DETECTED NON DETECTED 08/03/2024 3:14 PM PRODUCT EXAMINER [facility] Comment: FOR MEDICAL USE ONLY. CUTOFF CONCENTRATION FOR DETECTED RESULT: OPIATES: 300 NG/ML UR PHENCYCLIDINE NON DETECTED NON DETECTED 08/03/2024 3:14 PM PRODUCT EXAMINER [facility] Comment: FOR MEDICAL USE ONLY. CUTOFF CONCENTRATION FOR DETECTED RESULT: PCP: 25 NG/ML UR CANNABINOID DETECTED(A) NON DETECTED 08/03/2024 3:14 PM PRODUCT EXAMINER [facility] Comment: FOR MEDICAL USE ONLY. CUTOFF CONCENTRATION FOR DETECTED RESULT: THC (MARIJUANA): 50 NG/ML UR BARBITURATE NON DETECTED NON DETECTED 08/03/2024 3:14 PM PRODUCT EXAMINER [facility] Comment: FOR MEDICAL USE ONLY. CUTOFF CONCENTRATION FOR DETECTED RESULT: BARBITUATES: 200 NG/ML UR FENTANYL NON DETECTED NON DETECTED 08/03/2024 3:14 PM PRODUCT EXAMINER [facility] Comment: FOR MEDICAL USE ONLY. CUTOFF CONCENTRATION FOR DETECTED RESULT: FENTANYL: 1.0 NG/ML Urine Non-Phlebotomy Collection / Unknown 08/03/2024 2:03 PM PRODUCT EXAMINER 08/03/2024 2:09 PM PRODUCT EXAMINER Sherrell Bai MD URINE ORDERABLES Final Result [facility] [address] [place] [address] from Last 3 Months Insurance MEDICAID [employer] [facility] Advance Directives * Full Code (Latest Code [...] measures to stabilize the patient. Care Teams Nursing Associate Relationship Specialty Start Date End Date Provider, None [place] PCP - General 06/16/24
--- OUTSIDE RECORDS SUMMARY | 2024-10-14 14:19 | XMS_ITS | Clinical Summary ---
Author Organization [facility] Address [address] [place] [address] Care Team Providers Care Emergency Physician Name Role Phone None, Provider MD Primary [...] Date Diagnosed Date Resolved Date Septic joint ([facility]) 04/11/2024 04/13/2024 Social History Tobacco Use Types Packs/Day Years Used Date Smoking Tobacco: Never Smokeless Tobacco: Never Alcohol Use Standard Drinks/Week Comments Not Currently 0 (1 standard drink = 0.6 oz pure alcohol) Patient reports being 2 weeks sober. [facility] Utilities Answer Date Recorded In the past 12 months has [facility] [employer], gas, oil, or water [employer] threatened to shut off services in your [...] any time in the past 12 m [facility], were you homeless or living in a nursing home (including now)? Patient declined 04/12/2024 Sex and Gender Information Value Date Recorded Sex Assigned at Not on file Legal Sex Male 4:06 AM NIGHT CUSTODIAN Gender Identity Not on file Sexual Orientation [...] 6:47 PM 04/13/2024 6:13 PM Care Teams Emergency Physician Relationship Specialty Start Date End Date None, Provider, PCP - General 07/13/21
== END 2024-10-14 14:45 | disposition home or self-care (01) ==
PROVIDERS: Emergency Provider Physician Assistant
DX: S09.90XA Unspecified injury of head, initial encounter (principal); W01.198A Fall on same level from slipping, tripping and stumbling with subsequent striking against other object, initial encounter; Y93.67 Activity, basketball
CPT/HCPCS: 99282